=== PATIENT | female | born 1960 | race Caucasian/White ===

== ENCOUNTER 2019-08-11 09:32 | Outpatient (CLI) | payer OTHER, SELFPAY ==
[2019-08-11 09:55] LABS: Basophils Absolute Auto 0.04 K/mm3 (0.00-0.10); Basophils Percent Auto 0.8 % (0.0-1.0); Eosinophils Absolute Auto 0.27 K/mm3 (0.02-0.50); Eosinophils Percent Auto 5.3 % (1.0-6.0); Hematocrit 45.6 % (35.0-49.0); Hemoglobin 15.5 g/dL (12.0-15.0); Immature Granulocyte Absolute 0.01 K/mm3 (0.00-0.00); Immature Granulocyte Percent A 0.2 % (0.0-0.0); Lymphocytes Absolute Auto 1.63 K/mm3 (1.10-4.50); Lymphocytes Percent Auto 31.8 % (18.0-42.0); Mean Corpuscular Volume 94.2 fL (78.0-102.0); Mean Platelet Volume 9.6 fl (9.2-11.8); Monocytes Absolute Auto 0.52 K/mm3 (0.10-0.90); Monocytes Percent Auto 10.2 % (2.0-11.0); Neutrophils Absolute Auto 2.7 K/mm3 (1.7-7.2); Neutrophils Percent Auto 51.7 % (50.0-70.0); Platelet Count Result 176 K/mm3 (150-420); Red Blood Count 4.84 M/mm3 (4.20-5.40); Red Cell Distribution Width 12.8 % (11.6-14.4); White Blood Count 5.1 K/mm3 (4.8-10.8)
[2019-08-11 09:56] LABS: Add Urine Microscopic? NO; Appearance Urine Clear (Clear); Bilirubin Urine Negative (Negative); Blood Urine Negative (Negative); Color Urine Yellow (Yellow); Glucose Urine UA Negative (Negative); Ketones Urine Negative (Negative); Leukocyte Esterase Ur Negative (Negative); Nitrate Urine Negative (Negative); Protein Urine Negative (Negative); Specific Grav Ur 1.025 (1.010-1.020); Urobilinogen Urine 0.2 mg/dL (0.2-1.0); pH Urine 5.5 (5.0-8.0)
[2019-08-11 10:06] LABS: Hemoglobin A1C 5.7 % (<5.7)
[2019-08-11 10:42] LABS: Alanine Aminotransferase 33 U/L (14-59); Alkaline Phosphatase 79 U/L (46-116); Anion Gap 12.4 mmol/L (7-16); Aspartate Amino Transferase 24 U/L (15-37); Bilirubin,Total 1.5 mg/dL (0.00-1.00); Blood Urea Nitrogen 21 mg/dL (7-18); Carbon Dioxide 30 mmol/L (21-32); Chloride 103 mmol/L (98-108); Cholesterol 179 mg/dL (0-200); Creatine Kinase 120 U/L (26-192); Estimated Glomerular Filt Rate > 60; Glucose 98 mg/dL (70-99); HDL Direct 54 mg/dL (40-60); LDL Cholesterol Calculated 87 mg/dL (<130); Osmolality Calculated 295 mOsm/kg (285-295); Potassium 4.4 mmol/L (3.5-5.1); Sodium 141 mmol/L (136-145); Total Protein 7.1 g/dL (6.4-8.2); Triglycerides 190 mg/dL (0-150)
== END 2019-08-11 09:33 | disposition home or self-care (01) ==
LOC: CHSLAB 09:34
PROVIDERS: PCP Internal Medicine; Visit Provider Internal Medicine
DX: Z00.00 Encounter for general adult medical examination without abnormal findings (principal); E78.2 Mixed hyperlipidemia; R73.01 Impaired fasting glucose; I49.3 Ventricular premature depolarization
CPT/HCPCS: 36415; 80053; 80061; 81003; 82550; 83036; 85025

== ENCOUNTER 2019-12-16 13:37 | Outpatient (CLI) | payer OTHER, SELFPAY ==
[2019-12-17 03:00] LABS: SARS-CoV-2 RNA PCR Negative
== END 2019-12-16 13:38 | disposition home or self-care (01) ==
LOC: CHSLAB 13:39
PROVIDERS: PCP Internal Medicine; Visit Provider Internal Medicine
DX: R50.9 Fever, unspecified (principal); Z20.828 Contact with and (suspected) exposure to other viral communicable diseases
CPT/HCPCS: 87635; C9803; U0003

== ENCOUNTER 2020-08-10 09:59 | Outpatient (CLI) | payer OTHER, SELFPAY ==
[2020-08-10 10:14] LABS: Basophils Absolute Auto 0.05 K/mm3 (0.00-0.10); Eosinophils Percent Auto 4.1 % (1.0-6.0); Hematocrit 45.5 % (35.0-49.0); Hemoglobin 15.2 g/dL (12.0-15.0); Immature Granulocyte Absolute 0.02 K/mm3 (0.00-0.00); Immature Granulocyte Percent A 0.4 % (0.0-0.0); Lymphocytes Absolute Auto 1.51 K/mm3 (1.10-4.50); Lymphocytes Percent Auto 31.1 % (18.0-42.0); Mean Corpuscular HGB Conc 33.4 g/dL (32.0-36.0); Mean Corpuscular Volume 92.7 fL (78.0-102.0); Mean Platelet Volume 8.9 fl (9.2-11.8); Monocytes Absolute Auto 0.54 K/mm3 (0.10-0.90); Monocytes Percent Auto 11.1 % (2.0-11.0); Neutrophils Absolute Auto 2.5 K/mm3 (1.7-7.2); Neutrophils Percent Auto 52.3 % (50.0-70.0); Platelet Count Result 196 K/mm3 (150-420); Red Blood Count 4.91 M/mm3 (4.20-5.40); Red Cell Distribution Width 12.9 % (11.6-14.4); White Blood Count 4.9 K/mm3 (4.8-10.8)
[2020-08-10 10:17] LABS: Appearance Urine Clear (Clear); Bilirubin Urine Negative (Negative); Color Urine Yellow (Yellow); Glucose Urine UA Negative (Negative); Ketones Urine Negative (Negative); Leukocyte Esterase Ur Negative LEU/UL (Negative); Nitrate Urine Negative (Negative); Protein Urine Negative (Negative); Specific Grav Ur >= 1.030 (1.010-1.020); Urobilinogen Urine 0.2 mg/dL (0.2-1.0)
[2020-08-10 10:28] LABS: Add Urine Microscopic? YES; Bacteria Urine None seen /hpf; Blood Urine Trace-Intact (Negative); RBC Urine 0-2 /hpf (0-2); Squamous Epithelial Cell Urine Few /hpf (Few); WBC Urine None seen /hpf (0-3)
[2020-08-10 11:05] LABS: Alanine Aminotransferase 35 U/L (14-59); Albumin Level 3.9 g/dL (3.4-5.0); Alkaline Phosphatase 106 U/L (46-116); Anion Gap 10 mmol/L (8-16); Aspartate Amino Transferase 22 U/L (15-37); Bilirubin,Total 1.4 mg/dL (0.00-1.00); Blood Urea Nitrogen 24 mg/dL (7-18); Calcium 9.2 mg/dL (8.5-10.1); Carbon Dioxide 29 mmol/L (21-32); Chloride 104 mmol/L (98-108); Cholesterol 204 mg/dL (0-200); Creatine Kinase 91 U/L (26-192); Estimated Glomerular Filt Rate > 60; Glucose 98 mg/dL (70-99); HDL Direct 56 mg/dL (40-60); LDL Cholesterol Calculated 117 mg/dL (<130); Osmolality Calculated 300 mOsm/kg (285-295); Potassium 4.6 mmol/L (3.5-5.1); Sodium 143 mmol/L (136-145); Thyroid Stimulating Hormone 2.16 uIU/mL (0.36-3.74); Total Protein 7.1 g/dL (6.4-8.2); Triglycerides 155 mg/dL (0-150)
== END 2020-08-10 10:00 | disposition home or self-care (01) ==
LOC: CHSLAB 10:02
PROVIDERS: PCP Internal Medicine; Visit Provider Internal Medicine
DX: Z00.00 Encounter for general adult medical examination without abnormal findings (principal)
CPT/HCPCS: 36415; 80053; 80061; 81001; 82550; 84439; 84443; 85025

== ENCOUNTER 2020-08-25 09:50 | Outpatient (CLI) | payer OTHER, SELFPAY ==
--- NOTE | ~2020-08-25 | CT_ITS ---
EXAMINATION: CT sinus wo con DATE: 08/25/2020 10:12 INDICATION: Chronic pansinusitis TECHNIQUE: Computed tomography (CT) of the paranasal sinuses was performed without contrast. Iterativ e reconstruction technique was employed. Exam dose: 330.84 mGy-cm total exam DLP. COMPARISON: 06/22/2013 CT brain FINDINGS: There is rightward deviation of nasal septum. There is asymmetric soft tissue swelling of left middle and inferior nasal turbinates. The ostiomeatal units are patent bilaterally. There is minimal focal soft tissue thickening in the left frontoethmoid area. There is minimal focal soft tissue thickening along the anterolateral right maxillary sinus. The paranasal sinuses are otherwise normally developed and aerated without mucoperiosteal thickening, mass, opacification or air-fluid level. The mastoid air cells are normally developed and aerated. Middle and inner ear apparatus appear nuvia l. IMPRESSION: Rightward deviation nasal septum Asymmetric soft tissue swelling of left nasal turbinates Minimal focal left frontal ethmoid soft tissue thickening and minimal focal soft tissue thickening of the anterolateral wall of the right maxillary sinus Reviewed, dictated and finalized at [facility]. Reviewed, dictated and finalized at [facility]. IMPRESSION: Rightward deviation nasal septum Asymmetric soft tissue swelling of left nasal turbinates Minimal focal left frontal ethmoid soft tissue thickening and minimal focal sof t tissue thickening of the anterolateral wall of the right maxillary sinus
== END 2020-08-25 09:51 | disposition home or self-care (01) ==
LOC: CHSIMG 09:52
PROVIDERS: PCP Internal Medicine; Visit Provider Internal Medicine
DX: J32.4 Chronic pansinusitis (principal)
CPT/HCPCS: 70486

== ENCOUNTER 2021-07-03 07:56 | Outpatient (RCR) | payer OTHER, SELFPAY ==
--- NOTE | 2021-07-03 08:56 | PTOPEVAL ---
Thank you for referring Jannie Kong to [facility].? The patient is scheduled to be seen for therapy? __2__x/week for 8 visits. Please review, sign, date and return this plan of care ARABELLA. I agree with and certify that the following plan of care is medically necessary. Referring Physician Date Admitting Provider: Attending Provider: Monica Lopez MD Referring Provider: *PT Outpatient Evaluation Start: 07/03/21 08:04 Freq: Status: Active Protocol: Document 07/03/21 08:04 PETER (Rec: 07/03/21 08:31 PETER [email or web address]) Therapy Assessment Status Assessment Status Assessment Status Evaluation Evaluation Information Problem Diagnosis right shoulder pain Onset 02/11/21 Subjective Information Pt. reports that she noticed Query Text:As Reported By Patient/ first episode of right Family shoulder pain in Feb. She reports that she was jerked after her dog ran while on the leash. She reports that pain is on/off but has been worsening. She reports that she was given an dose pack at the doctor which has started to reduce pain over the past couple days. She reports that reaching across her body increases her pain, or doing activities such as washing tables. she reports that her goal for therapy is to reduce her right shoulder pain. Prior Level of Function Activity Level (Last 3 Months) Hand Dominance Right Activity of Daily Living Ability Independent Indoor/Home Mobility Independent Community Mobility Independent Stairs Ability Independent Functional Cognition (Planning, Shopping Independent , Taking Medications) Cooking Yes Cleaning Yes Laundry Yes Shopping Yes Driving Yes Pain Assessment Timing of Pain Assessment Timing of Pain Assessment Pre-Treatment Pain Scale Pain Scale Used Numeric (1 - 10) Self Report Pain Assessment Right Shoulder(s) Reported Pain Level 4 Lowest Pain Intensity 1 Greatest Pain Intensity 5 Pain Aggravating Factors Exercise/Activity,Lifting Pain Score Pain Score 4: Self Report Interventions Used Interventions Used By Clinicians Electrical Stimulation,
--- NOTE | 2021-07-27 15:14 | PTOPEVAL ---
Thank you for referring Jannie Kong to [facility].? The patient is scheduled to be seen for therapy? ____x/week for ___ weeks. Please review, sign, date and return this plan of care ARABELLA. I agree with and certify that the following plan of care is medically necessary. Referring Physician Date Admitting Provider: Attending Provider: Monica Lopez MD Referring Provider: *PT Outpatient Evaluation Start: 07/03/21 08:04 Freq: Status: Active Protocol: Document 07/27/21 08:00 Svetlana (Rec: 07/27/21 09:12 [facility] [email or web address]) Therapy Assessment Status Assessment Status Assessment Status Discharge Evaluation Information Problem Diagnosis right shoulder pain Onset 02/11/21 Additional Evaluation Detail Quick DASH = 6.8% Functionally Impaired Subjective Information Pt reports that her shoulder Query Text:As Reported By Patient/ is doing better. She says that Family she is able to wash her back and reach across her chest farther than she was able to in the past. However, she still has pain and difficulty when sleeping. She states that she is pleased with the progress that she has made over her course of therapy. Pain Assessment Timing of Pain Assessment Timing of Pain Assessment Pre-Treatment Pain Scale Pain Scale Used Numeric (1 - 10) Self Report Pain Assessment Right Shoulder(s) Reported Pain Level 0 Greatest Pain Intensity 4 Pain Score Pain Score 0: Self Report Interventions Used Interventions Used By Clinicians Activity or ADL's,Education, Exercise Upper Extremity Range of Motion Scapular/ Shoulder Range of Motion Right Shoulder Flexion - Active 150 Shoulder Medial Rotation - Active L3 Query Text:Reach Behind the Back Shoulder Lateral Rotation - Active T3 Query Text:Reach Behind the Head Left Shoulder Flexion - Active 165 Shoulder Medial Rotation - Active T12 Query Text:Reach Behind the Back Shoulder Lateral Rotation - Active T4 Query Text:Reach Behind the Head Upper Extremity Muscle Strength Testing Scapular/Shoulder Right Shoulder Elevation - Upper Trapezius 4+ Good + Shoulder Flexion Strength 4+ Good + Shoulder Abduction Strength 4+ Good + Shoulder Medial Rotation Strength 5 Normal Shoulder Lateral Rotation Strength 5 Normal Left Shoulder Elevation - Upper Trapezius 5 Normal Shoulder Flexion Strength 5 Normal Shoulder Abduction Strength 4+ Good + Shoulder Medial Rotation Strength
== END 2021-07-27 17:41 | disposition home or self-care (01) ==
LOC: CHSPT 07:56
PROVIDERS: PCP Internal Medicine; Visit Provider Internal Medicine
DX: M25.511 Pain in right shoulder (principal)
CPT/HCPCS: 97014; 97110; 97140; 97161; 97530; G0283

== ENCOUNTER 2021-08-02 08:32 | Outpatient (CLI) | payer OTHER, SELFPAY ==
[2021-08-02 09:08] LABS: Basophils Absolute Auto 0.04 K/mm3 (0.00-0.10); Basophils Percent Auto 0.8 % (0.0-1.0); Eosinophils Absolute Auto 0.23 K/mm3 (0.02-0.50); Eosinophils Percent Auto 4.5 % (1.0-6.0); Hematocrit 43.9 % (35.0-49.0); Immature Granulocyte Absolute 0.01 K/mm3 (0.00-0.00); Immature Granulocyte Percent A 0.2 % (0.0-0.0); Lymphocytes Absolute Auto 1.69 K/mm3 (1.10-4.50); Lymphocytes Percent Auto 32.9 % (18.0-42.0); Mean Corpuscular HGB Conc 34.2 g/dL (32.0-36.0); Mean Corpuscular Hemoglobin 32.1 pg (27.0-31.0); Mean Corpuscular Volume 93.8 fL (78.0-102.0); Mean Platelet Volume 9.2 fl (9.2-11.8); Monocytes Absolute Auto 0.46 K/mm3 (0.10-0.90); Neutrophils Absolute Auto 2.7 K/mm3 (1.7-7.2); Neutrophils Percent Auto 52.6 % (50.0-70.0); Platelet Count Result 203 K/mm3 (150-420); Red Blood Count 4.68 M/mm3 (4.20-5.40); White Blood Count 5.1 K/mm3 (4.8-10.8)
[2021-08-02 09:11] LABS: Add Urine Microscopic? YES; Appearance Urine Clear (Clear); Bilirubin Urine Negative (Negative); Blood Urine Negative (Negative); Color Urine Light Yellow (Yellow); Glucose Urine UA Negative (Negative); Ketones Urine Negative (Negative); Leukocyte Esterase Ur 1+ (Negative); Nitrate Urine Negative (Negative); Protein Urine Negative (Negative); Specific Grav Ur >= 1.030 (1.010-1.020); Urobilinogen Urine 0.2 mg/dL (0.2-1.0)
[2021-08-02 09:15] LABS: Creatinine Urine 170.17 mg/dL (40-278); MALB Creatinine Ratio 7.6 mg/g (0-30); Microalbumin Urine Random < 13.0 mg/L
[2021-08-02 09:18] LABS: Bacteria Urine Trace /hpf; Mucus Urine Few /lpf; RBC Urine 0-2 /hpf (0-2); Squamous Epithelial Cell Urine Few /hpf (Few)
[2021-08-02 09:19] LABS: Hemoglobin A1C 5.7 % (<5.7)
[2021-08-02 09:51] LABS: Alanine Aminotransferase 34 U/L (14-59); Albumin Level 3.9 g/dL (3.4-5.0); Alkaline Phosphatase 112 U/L (46-116); Anion Gap 7 mmol/L (8-16); Aspartate Amino Transferase 19 U/L (15-37); Bilirubin,Total 1.4 mg/dL (0.00-1.00); Blood Urea Nitrogen 20 mg/dL (7-18); Carbon Dioxide 27 mmol/L (21-32); Chloride 107 mmol/L (98-108); Cholesterol 205 mg/dL (0-200); Creatine Kinase 80 U/L (26-192); Estimated Glomerular Filt Rate > 60; Ferritin 145 ng/mL (8-252); Free T3 3.02 pg/mL (2.18-3.98); Free T4 Free Thyroxine 0.91 ng/dL (0.76-1.46); Glucose 97 mg/dL (70-99); HDL Direct 52 mg/dL (40-60); Iron 126 ug/dL (50-170); LDL Cholesterol Calculated 119 mg/dL (<130); Magnesium 2.2 mg/dL (1.8-2.4); Osmolality Calculated 294 mOsm/kg (285-295); Potassium 4.3 mmol/L (3.5-5.1); Sodium 141 mmol/L (136-145); Thyroid Stimulating Hormone 2.08 uIU/mL (0.36-3.74); Triglycerides 168 mg/dL (0-150)
[2021-08-07 20:56] LABS: Vitamin D 25 Hydroxy 48 ng/mL (30-100)
== END 2021-08-02 08:33 | disposition home or self-care (01) ==
LOC: CHSLAB 08:36
PROVIDERS: PCP Internal Medicine; Visit Provider Internal Medicine
DX: Z00.00 Encounter for general adult medical examination without abnormal findings (principal); E78.2 Mixed hyperlipidemia; R73.01 Impaired fasting glucose; I49.3 Ventricular premature depolarization; J32.4 Chronic pansinusitis
CPT/HCPCS: 36415; 80053; 80061; 81001; 82043; 82306; 82550; 82728; 83036; 83540; 83735; 84439; 84443; 84481; 85025

== ENCOUNTER 2021-08-22 11:14 | Outpatient (CLI) | payer OTHER, SELFPAY ==
--- NOTE | ~2021-08-22 | XR_ITS ---
XR shoulder RT min 2V DATE: 08/22/2021 11:29 INDICATION: Right shoulder pain TECHNIQUE: 4 views COMPARISON: None FINDINGS: No fracture or dislocation, periosteal reaction or bone destruction or abnormal soft tissue calcification of the right shoulder. IMPRESSION: Negative Reviewed, dictated and finalized at [facility]. IMPRESSION: Negative
== END 2021-08-22 11:15 | disposition home or self-care (01) ==
LOC: CHSLAB 11:16
PROVIDERS: PCP Internal Medicine; Visit Provider Internal Medicine
DX: M25.511 Pain in right shoulder (principal)
CPT/HCPCS: 73030

== ENCOUNTER → 2021-09-06 15:22 | Outpatient (CLI) | payer OTHER, SELFPAY ==
--- NOTE | ~2021-09-06 | MR_ITS ---
EXAMINATION: MR shoulder RT wo con DATE: 09/06/2021 16:08 INDICATION: Lateral right shoulder pain, difficulty reaching across the chest x4 months. Right arm je rked backwards 6 months ago. TECHNIQUE: Magnetic resonance imaging (MRI) of the right shoulder was performed without intravenous c ontrast. Sequences included axial PD-weighted FS FSE, coronal oblique PD-weighted FS FSE and T2-weigh jose g FS FSE, and sagittal oblique T2-weighted FS FSE and T1-weighted FSE. COMPARISON: X-ray right shoulder 08/22/2021 FINDINGS: Coracoacromial arch: Mild anterolateral downsloping of the type I acromion. Moderate AC joint hypertrophy with minimal inf erior osteophytosis. Moderate acromial tip enthesophyte. No subcoracoid narrowing. Rotator cuff: Supraspinatus, infraspinatus, and teres minor are intact. Thickening and abnormal signal within the d istal/superior fibers of the subscapularis. Biceps tendon and glenoid labrum: Minimal subluxation with abnormal signal and thickening of the long head of biceps tendon. Short head of biceps tendon intact. Degenerative changes in the glenoid labrum without focal tear. Fluid: Mild subacromial subdeltoid fluid and inflammation. Bones/cartilage: No suspicious focal or diffuse marrow signal. IMPRESSION: 1. Partial subluxation and moderate tendinopathy of the long head of biceps tendon, with correspondin g partial subscapularis tear. 2. Mild osseous outlet compromise with subacromial subdeltoid bursitis. Reviewed, dictated and finalized at [facility]. IMPRESSION: 1. Partial subluxation and moderate tendinopathy of the long head of biceps ten don, with corresponding partial subscapularis tear. 2. Mild osseous outlet compromise with subacromial subdeltoid bursitis.
== END ==
PROVIDERS: PCP Internal Medicine; Visit Provider Internal Medicine
DX: M25.511 Pain in right shoulder (principal)
CPT/HCPCS: 73221

== ENCOUNTER → 2022-05-03 10:46 | Outpatient (CLI) | payer OTHER, SELFPAY | PROVIDERS: PCP Internal Medicine; Visit Provider Nurse Practitioner Family | DX: M25.561 Pain in right knee (principal) | CPT/HCPCS: 73564 ==

== ENCOUNTER → 2022-05-07 09:18 | Outpatient (CLI) | payer OTHER, SELFPAY ==
--- NOTE | ~2022-05-07 | MR_ITS ---
MRI of the right knee Clinical history: Pain Technique: Coronal proton density and proton density-weighted images, sagittal proton-density and T2 fat-sat images, and axial proton-density fat-saturated images were acquired. Findings: Anterior and posterior cruciate ligaments are intact. Medial collateral ligament and the la teral collateral ligament complex are intact. Popliteus tendon is intact. There is complex tearing of the posterior horn and body of medial meniscus, with horizontal and verti kaila tear components. No lateral meniscal tear identified. There is mild chondromalacia patella. Remaining articular cartilage is well preserved. Bone marrow si gnals are unremarkable. Extensor mechanism is intact. Small joint effusion present. No Reilly's cyst. Impression: Complex tearing of the posterior horn and body of the medial meniscus, with both horizontal and verti kaila tear components. Mild chondromalacia patella. Reviewed, dictated and finalized at [facility]. Impression: Complex tearing of the posterior horn and body of the medial meniscus, with bot h horizontal and vertical tear components. Mild chondromalacia patella.
== END ==
PROVIDERS: PCP Internal Medicine; Visit Provider Internal Medicine
DX: S83.231A Complex tear of medial meniscus, current injury, right knee, initial encounter (principal); X58.XXXA Exposure to other specified factors, initial encounter
CPT/HCPCS: 73721

== ENCOUNTER 2022-08-03 08:49 | Outpatient (CLI) | payer OTHER, SELFPAY ==
[2022-08-03 09:10] LABS: Basophils Absolute Auto 0.05 K/mm3 (0.00-0.10); Basophils Percent Auto 0.8 % (0.0-1.0); Eosinophils Absolute Auto 0.26 K/mm3 (0.02-0.50); Hematocrit 49.2 % (35.0-49.0); Hemoglobin 16.3 g/dL (12.0-15.0); Immature Granulocyte Absolute 0.01 K/mm3 (0.00-0.00); Immature Granulocyte Percent A 0.2 % (0.0-0.0); Lymphocytes Percent Auto 30.8 % (18.0-42.0); Mean Corpuscular HGB Conc 33.1 g/dL (32.0-36.0); Mean Corpuscular Hemoglobin 31.5 pg (27.0-31.0); Mean Corpuscular Volume 95.2 fL (78.0-102.0); Monocytes Absolute Auto 0.61 K/mm3 (0.10-0.90); Monocytes Percent Auto 9.4 % (2.0-11.0); Neutrophils Absolute Auto 3.6 K/mm3 (1.7-7.2); Neutrophils Percent Auto 54.8 % (50.0-70.0); Platelet Count Result 213 K/mm3 (150-420); Red Blood Count 5.17 M/mm3 (4.20-5.40); White Blood Count 6.5 K/mm3 (4.8-10.8)
[2022-08-03 09:11] LABS: Appearance Urine Clear (Clear); Bilirubin Urine 1+ (Negative); Blood Urine Negative (Negative); Glucose Urine UA Negative (Negative); Ketones Urine Trace (Negative); Leukocyte Esterase Ur Negative LEU/UL (Negative); Nitrate Urine Negative (Negative); Protein Urine Trace (Negative); Specific Grav Ur >= 1.030 (1.010-1.020); Urobilinogen Urine 0.2 mg/dL (0.2-1.0); pH Urine 5.5 (5.0-8.0)
[2022-08-03 09:17] LABS: Add Urine Microscopic? YES; Bacteria Urine Trace /hpf; Color Urine Dark Yellow (Yellow); Mucus Urine Few /lpf; RBC Urine None seen /hpf (0-2); Squamous Epithelial Cell Urine Few /hpf (Few); WBC Urine None seen /hpf (0-3)
[2022-08-03 09:52] LABS: Alanine Aminotransferase 47 U/L (14-59); Albumin Level 3.9 g/dL (3.4-5.0); Alkaline Phosphatase 122 U/L (46-116); Anion Gap 7 mmol/L (8-16); Aspartate Amino Transferase 25 U/L (15-37); Bilirubin,Total 1.6 mg/dL (0.00-1.00); Blood Urea Nitrogen 22 mg/dL (7-18); Calcium 9.3 mg/dL (8.5-10.1); Carbon Dioxide 30 mmol/L (21-32); Chloride 105 mmol/L (98-108); Cholesterol 204 mg/dL (0-200); Creatine Kinase 76 U/L (26-192); Estimated Glomerular Filt Rate > 60; Ferritin 219 ng/mL (8-252); Free T3 3.42 pg/mL (2.18-3.98); Glucose 111 mg/dL (70-99); HDL Direct 51 mg/dL (40-60); Iron 111 ug/dL (50-170); LDL Cholesterol Calculated 106 mg/dL (<130); Magnesium 2.1 mg/dL (1.8-2.4); Osmolality Calculated 298 mOsm/kg (285-295); Potassium 4.3 mmol/L (3.5-5.1); Sodium 142 mmol/L (136-145); Total Protein 7.3 g/dL (6.4-8.2); Triglycerides 236 mg/dL (0-150)
[2022-08-06 11:31] LABS: Free T4 Free Thyroxine 1.22 ng/dL (0.76-1.46)
== END 2022-08-03 08:50 | disposition home or self-care (01) ==
LOC: CHSLAB 08:55
PROVIDERS: PCP Internal Medicine; Visit Provider Internal Medicine
DX: N39.0 Urinary tract infection, site not specified (principal); E78.5 Hyperlipidemia, unspecified; D50.9 Iron deficiency anemia, unspecified; R53.83 Other fatigue
CPT/HCPCS: 36415; 80053; 80061; 81001; 82550; 82728; 83540; 83735; 84439; 84443; 84481; 85025

== ENCOUNTER 2022-12-26 01:38 | Day surgery (SDC) | payer OTHER, SELFPAY ==
[2022-12-12 13:03] VITALS: BMI 31.9
--- NOTE | 2022-12-24 09:20 | SUR.PREOP ---
Patient called regarding upcoming procedure. Reviewed preop instructions, appointment times, and procedure prep.
--- NOTE | 2022-12-25 14:13 | PM.HPGS ---
History of Present Illness History of Present Illness Consent: Risks, benefits, and alternatives have been discussed and questions answered. Patient agrees to proceed with procedure. Chief complaint: hx colon polyps Narrative: Jannie Kong is a 62 year old female Referred for colon cancer screening. She has a history of polyps. She had 3 polyps removed 5 years ago, 1 of which was a tubular adenoma. Review of Systems Review of Systems: All systems reviewed & are unremarkable except as noted in HPI and below PMFSH Family History Family History Mother Family history of elevated blood lipids Family history of coronary artery disease Grandparent Cerebrovascular accident Social History Social History Smoking status: Never smoker Alcohol intake: current Alcohol use details: seldom Substance use: never Substance use type: does not use Living arrangements: with family Spiritual care concerns: No Meds Home Medications and Allergies Home Medications Medication Instructions Recorded Confirmed Type meloxicam 15 mg tablet 15 mg PO DAILY 12/12/22 12/26/22 History metoprolol succinate 25 mg 25 mg PO DAILY 12/12/22 12/26/22 History tablet,extended release 24 hr rosuvastatin 10 mg tablet 10 mg PO DAILY 12/12/22 12/26/22 History Allergies Allergy/AdvReac Type Severity Reaction Status Date / Time Penicillins Allergy Unknown rash Verified 12/26/22 08:57 Exam Const: General: alert Orientation/consciousness: patient oriented x3 Resp: Auscultation: clear to auscultation bilaterally Cardio: Rhythm: regular rhythm GI: GI Palp: Yes Soft to palpation and No Tenderness to palpation present (GI) Neuro: General: patient oriented x3 Assessment and Plan Assessment and plan (1) Colon cancer screening: Code(s): Z12.11 - Encounter for screening for malignant neoplasm of colon Status: Acute Assessment and Plan: Colonoscopy with possible biopsy or polypectomy or cautery or injection of substances.
[2022-12-26 08:59] VITALS: BP 151/102; PULSE 102; RESP 18; TEMP 36.4; O2SAT 98; BMI 32.0
[2022-12-26] MEDS: LACTATED RINGERS 1,000 ML 150 ML IV CONT (09:01)
--- NOTE | 2022-12-26 09:33 | WPDANESEPPF ---
Anes - Initial Pre Proc Eval Procedure: Operation Date: 12/26/22 10:00 Proposed Procedures p Colonoscopy - Coleman Martell MD Date/Time: 12/26/22 09:33 Surgeon: Coleman Martell MD Pre Op Diagnosis: hx colon polyps Patient Data Age: 62 Gender: F Height: 1.7 m Weight: 92.8 kg Last Vital Signs Temp 97.5 F L 12/26/22 08:59 Pulse 102 H 12/26/22 08:59 Resp 18 12/26/22 08:59 BP 151/102 H 12/26/22 08:59 Pulse Ox 98 12/26/22 08:59 O2 Del Method Room Air 12/26/22 08:59 Allergies Allergy/AdvReac Type Severity Reaction Status Date / Time Penicillins Allergy Unknown rash Verified 12/26/22 08:57 Home Medications Medication Instructions Recorded Confirmed Type meloxicam 15 mg tablet 15 mg PO DAILY 12/12/22 12/26/22 History metoprolol succinate 25 mg 25 mg PO DAILY 12/12/22 12/26/22 History tablet,extended release 24 hr rosuvastatin 10 mg tablet 10 mg PO DAILY 12/12/22 12/26/22 History Patient hx anesthesia problems: none Family hx anesthesia problems: none Results Review: All pre-operative results and documents have been reviewed as part of the pre-operative evaluation. [facility] Family History Family History Mother Family history of elevated blood lipids Family history of coronary artery disease Grandparent Cerebrovascular accident Social History Social History Smoking status: Never smoker Alcohol intake: current Alcohol use details: seldom Substance use: never Substance use type: does not use Living arrangements: with family Spiritual care concerns: No Anes - Eval Final PreProcedure Day of Procedure 12/26/22 09:33 Patient weight: obese Heart: regular rate and rhythm Lungs: clear to auscultation Airway: Mallampati scale class II Neurological: alert and oriented Last oral intake: >/= 8 hours ASA classification: III Emergent: no Anesthetic plan: proceed Anesthesia type and monitoring: general GIVS and standard monitoring Results Review: All pre-operative results and documents have been reviewed as part of the pre-operative evaluation. Informed Consent: The patient's anesthetic plan and its attendant risks and benefits were discussed with the patient/family/POA. Questions were solicited and answers provided to the satisfaction of the patient/family/POA.
[2022-12-26 10:12] VITALS: BP 133/83; PULSE 93; RESP 20; O2SAT 98
[2022-12-26 10:22] VITALS: BP 141/98; PULSE 79; RESP 19; O2SAT 98
[2022-12-26 10:32] VITALS: BP 142/92; PULSE 74; RESP 16; O2SAT 100
== END 2022-12-26 10:40 | disposition home or self-care (01) ==
PROVIDERS: PCP Internal Medicine; Visit Provider Internal Medicine Gastroenterology
PROC: 0DJD8ZZ Inspection of Lower Intestinal Tract, Via Natural or Artificial Opening Endoscopic (ICD-10-PCS; CPT 45378; principal; 2022-12-26 10:00)
DX: Z12.11 Encounter for screening for malignant neoplasm of colon (principal); K57.30 Diverticulosis of large intestine without perforation or abscess without bleeding; E66.9 Obesity, unspecified; Z68.32 Body mass index [BMI] 32.0-32.9, adult; Z86.010 Personal history of colon polyps; Z82.49 Family history of ischemic heart disease and other diseases of the circulatory system
CPT/HCPCS: 45378; J2704; J7120

== ENCOUNTER 2023-01-25 09:14 | Outpatient (CLI) | payer OTHER, SELFPAY ==
[2023-01-25 09:43] LABS: Basophils Absolute Auto 0.04 K/mm3 (0.00-0.10); Basophils Percent Auto 0.8 % (0.0-1.0); Eosinophils Absolute Auto 0.32 K/mm3 (0.02-0.50); Eosinophils Percent Auto 6.7 % (1.0-6.0); Hematocrit 47.5 % (35.0-49.0); Hemoglobin 15.7 g/dL (12.0-15.0); Immature Granulocyte Absolute 0.01 K/mm3 (0.00-0.00); Immature Granulocyte Percent A 0.2 % (0.0-0.0); Lymphocytes Absolute Auto 1.19 K/mm3 (1.10-4.50); Lymphocytes Percent Auto 25.1 % (18.0-42.0); Mean Corpuscular HGB Conc 33.1 g/dL (32.0-36.0); Mean Corpuscular Hemoglobin 31.3 pg (27.0-31.0); Mean Corpuscular Volume 94.8 fL (78.0-102.0); Monocytes Absolute Auto 0.56 K/mm3 (0.10-0.90); Monocytes Percent Auto 11.8 % (2.0-11.0); Neutrophils Absolute Auto 2.6 K/mm3 (1.7-7.2); Neutrophils Percent Auto 55.4 % (50.0-70.0); Platelet Count Result 210 K/mm3 (150-420); Red Blood Count 5.01 M/mm3 (4.20-5.40); Red Cell Distribution Width 12.9 % (11.6-14.4); White Blood Count 4.8 K/mm3 (4.8-10.8)
[2023-01-25 09:48] LABS: Appearance Urine Clear (Clear); Bilirubin Urine Negative (Negative); Blood Urine Negative (Negative); Color Urine Yellow (Yellow); Glucose Urine UA Negative (Negative); Ketones Urine Negative (Negative); Leukocyte Esterase Ur Trace (Negative); Nitrate Urine Negative (Negative); Protein Urine Negative (Negative); Specific Grav Ur 1.025 (1.010-1.020); Urobilinogen Urine 0.2 mg/dL (0.2-1.0)
[2023-01-25 09:58] LABS: Hemoglobin A1C 5.6 % (<5.7)
[2023-01-25 10:07] LABS: Add Urine Microscopic? YES; Bacteria Urine Trace /hpf; Mucus Urine Moderate /lpf; RBC Urine None seen /hpf (0-2); Squamous Epithelial Cell Urine Few /hpf (Few); WBC Urine None seen /hpf (0-3)
[2023-01-25 10:16] LABS: Alanine Aminotransferase 74 U/L (14-59); Alkaline Phosphatase 104 U/L (46-116); Anion Gap 7 mmol/L (8-16); Aspartate Amino Transferase 45 U/L (15-37); Bilirubin,Total 1.9 mg/dL (0.00-1.00); Blood Urea Nitrogen 20 mg/dL (7-18); Calcium 9.2 mg/dL (8.5-10.1); Carbon Dioxide 29 mmol/L (21-32); Chloride 103 mmol/L (98-108); Cholesterol 212 mg/dL (0-200); Creatine Kinase 94 U/L (26-192); Estimated Glomerular Filt Rate > 60; Ferritin 244 ng/mL (8-252); Free T3 3.06 pg/mL (2.18-3.98); Free T4 Free Thyroxine 0.95 ng/dL (0.76-1.46); Glucose 109 mg/dL (70-99); HDL Direct 56 mg/dL (40-60); Iron 166 ug/dL (50-170); LDL Cholesterol Calculated 114 mg/dL (<130); Osmolality Calculated 291 mOsm/kg (285-295); Potassium 4.2 mmol/L (3.5-5.1); Sodium 139 mmol/L (136-145); Thyroid Stimulating Hormone 2.27 uIU/mL (0.36-3.74); Total Protein 7.1 g/dL (6.4-8.2); Triglycerides 208 mg/dL (0-150)
== END 2023-01-25 09:15 | disposition home or self-care (01) ==
LOC: CHSLAB 09:17
PROVIDERS: PCP Internal Medicine; Visit Provider Internal Medicine
DX: I10 Essential (primary) hypertension (principal); E78.2 Mixed hyperlipidemia; R73.01 Impaired fasting glucose; D75.1 Secondary polycythemia; J32.4 Chronic pansinusitis
CPT/HCPCS: 36415; 80053; 80061; 81001; 82550; 82728; 83036; 83540; 84439; 84443; 84481; 85025

== ENCOUNTER 2023-06-26 08:46 | Outpatient (CLI) | payer OTHER, SELFPAY ==
[2023-06-26 09:02] LABS: Basophils Absolute Auto 0.03 K/mm3 (0.00-0.10); Basophils Percent Auto 0.6 % (0.0-1.0); Eosinophils Absolute Auto 0.33 K/mm3 (0.02-0.50); Eosinophils Percent Auto 6.9 % (1.0-6.0); Hematocrit 45.2 % (35.0-49.0); Hemoglobin 15.1 g/dL (12.0-15.0); Immature Granulocyte Absolute 0.01 K/mm3 (0.00-0.00); Immature Granulocyte Percent A 0.2 % (0.0-0.0); Lymphocytes Absolute Auto 1.33 K/mm3 (1.10-4.50); Mean Corpuscular HGB Conc 33.4 g/dL (32-36); Mean Corpuscular Hemoglobin 31.2 pg (27.0-31.0); Mean Corpuscular Volume 93.4 fL (78.0-102.0); Mean Platelet Volume 9.3 fl (9.2-11.8); Monocytes Absolute Auto 0.45 K/mm3 (0.10-0.90); Monocytes Percent Auto 9.5 % (2.0-11.0); Neutrophils Percent Auto 54.8 % (50.0-70.0); Platelet Count Result 187 K/mm3 (150-420); Red Blood Count 4.84 M/mm3 (4.20-5.40); Red Cell Distribution Width 13.2 % (11.6-14.4); White Blood Count 4.8 K/mm3 (4.8-10.8)
[2023-06-26 09:19] LABS: Hemoglobin A1C 5.2 % (<5.7)
[2023-06-26 10:01] LABS: Alanine Aminotransferase 64 U/L (14-59); Albumin Level 3.8 g/dL (3.4-5.0); Alkaline Phosphatase 102 U/L (46-116); Anion Gap 8 mmol/L (4-12); Aspartate Amino Transferase 37 U/L (15-37); Bilirubin,Total 1.3 mg/dL (0.00-1.00); Blood Urea Nitrogen 20 mg/dL (7-18); Calcium 9.1 mg/dL (8.5-10.1); Carbon Dioxide 31 mmol/L (21-32); Chloride 104 mmol/L (98-108); Cholesterol 187 mg/dL (0-200); Creatine Kinase 107 U/L (26-192); Estimated Glomerular Filt Rate > 60; Ferritin 263 ng/mL (8-252); Glucose 101 mg/dL (70-99); HDL Direct 50 mg/dL (40-60); Iron 118 ug/dL (50-170); LDL Cholesterol Calculated 97 mg/dL (<130); Osmolality Calculated 298 mOsm/kg (285-295); Potassium 4.4 mmol/L (3.5-5.1); Sodium 143 mmol/L (136-145); Total Protein 7.1 g/dL (6.4-8.2); Triglycerides 200 mg/dL (0-150)
== END 2023-06-26 08:47 | disposition home or self-care (01) ==
LOC: CHSLAB 08:48
PROVIDERS: PCP Internal Medicine; Visit Provider Internal Medicine
DX: E78.2 Mixed hyperlipidemia (principal); D75.1 Secondary polycythemia; R73.01 Impaired fasting glucose
CPT/HCPCS: 36415; 80053; 80061; 82550; 82728; 83036; 83540; 85025

== ENCOUNTER 2023-10-18 09:29 | Outpatient (CLI) | payer OTHER, SELFPAY ==
[2023-10-18 15:00] LABS: Alanine Aminotransferase 75 U/L (6-35); Albumin Level 4.5 g/dL (3.5-5.1); Alkaline Phosphatase 96 U/L (38-126); Anion Gap 11 mmol/L (4-12); Aspartate Amino Transferase 60 U/L (14-36); Bilirubin,Total 1.6 mg/dL (0.2-1.3); Blood Urea Nitrogen 23 mg/dL (7-17); Calcium 9.4 mg/dL (8.4-10.2); Carbon Dioxide 26 mmol/L (22-30); Chloride 102 mmol/L (98-107); Estimated Glomerular Filt Rate > 60; Glucose 101 mg/dL (65-110); Osmolality Calculated 291 mOsm/kg (285-295); Potassium 4.4 mmol/L (3.4-5.0); Sodium 139 mmol/L (137-145)
[2023-10-18 15:14] LABS: Hemoglobin A1C 5.7 % (<5.7)
== END 2023-10-18 09:30 | disposition home or self-care (01) ==
LOC: CHSLAB 09:32
PROVIDERS: PCP Internal Medicine; Visit Provider Internal Medicine
DX: R74.8 Abnormal levels of other serum enzymes (principal); R73.01 Impaired fasting glucose
CPT/HCPCS: 36415; 80053; 83036

== ENCOUNTER 2023-10-24 09:57 | Outpatient (CLI) | payer OTHER, SELFPAY ==
[2023-10-25 13:17] LABS: Hepatitis B Surface Antibody REACTIVE (NON-REACTIVE)
[2023-10-26 07:58] LABS: Hepatitis C Virus Antibody NON-REACTIVE (NON-REACTIVE)
[2023-10-30 05:48] LABS: Actin Antibody (IgG) <20 U (<20)
[2023-10-31 01:18] LABS: Mitochondrial (M2) Ab (IgG) <20.0 U
== END 2023-10-24 09:58 | disposition home or self-care (01) ==
LOC: CHSLAB 09:59
PROVIDERS: PCP Internal Medicine; Visit Provider Internal Medicine
DX: R74.8 Abnormal levels of other serum enzymes (principal)
CPT/HCPCS: 36415; 83516; 83520; 86706; 86803

== ENCOUNTER 2023-11-15 08:42 | Outpatient (CLI) | payer OTHER, SELFPAY ==
--- NOTE | ~2023-11-15 | US_ITS ---
Limited Abdominal Sonogram: Real-time sonographic imaging of the right upper quadrant was performed. Clinical History: Abnormal liver enzymes Findings: The liver appears echogenic, with no evidence of mass lesion or bile duct dilatation. Main portal vein demonstrates normal direction of flow. The gallbladder is well distended, and appears no rmal with no evidence of gallstone or wall thickening. The common bile duct measures 6 mm. The visua lized pancreas, aorta, and IVC are unremarkable. Impression: Diffuse fatty infiltration of liver. Reviewed, dictated and finalized at [facility]. Impression: Diffuse fatty infiltration of liver.
== END 2023-11-15 08:43 | disposition home or self-care (01) ==
LOC: GOSHIMG 08:42
PROVIDERS: PCP Internal Medicine; Visit Provider Internal Medicine
DX: R74.8 Abnormal levels of other serum enzymes (principal); K76.0 Fatty (change of) liver, not elsewhere classified
CPT/HCPCS: 76705

== ENCOUNTER 2024-02-26 11:05 | Outpatient (CLI) | payer OTHER, SELFPAY | END 2024-02-26 11:06 | disposition home or self-care (01) | PROVIDERS: PCP Internal Medicine | DX: R74.8 Abnormal levels of other serum enzymes (principal) | CPT/HCPCS: 36415; 81256 ==

== ENCOUNTER 2024-03-16 10:09 | Outpatient (CLI) | payer OTHER, SELFPAY ==
--- NOTE | ~2024-03-16 | XR_ITS ---
EXAMINATION: XR chest 2V DATE: 03/16/2024 11:48 INDICATION: Upper respiratory tract infection TECHNIQUE: PA and lateral views of the chest were obtained. COMPARISON: Chest radiograph dated 12/04/2011 FINDINGS: The lungs remain clear with no focal airspace opacities, pulmonary edema, pleural effusion or pneumot horax. The cardiomediastinal silhouette is normal. Mild thoracic dextrocurvature with mild spondylosi s. IMPRESSION: 1. No acute cardiopulmonary disease. Reviewed, dictated and finalized at location B. [facility]
[2024-03-16 10:27] LABS: Hematocrit 46.2 % (35.0-49.0); Hemoglobin 16.1 g/dL (12.0-15.0); Mean Corpuscular HGB Conc 34.8 g/dL (32-36); Mean Corpuscular Hemoglobin 31.4 pg (27.0-31.0); Mean Corpuscular Volume 90.1 fL (78.0-102.0); Mean Platelet Volume 9.1 fl (9.2-11.8); Platelet Count Result 155 K/mm3 (150-420); Red Blood Count 5.13 M/mm3 (4.20-5.40); Red Cell Distribution Width 12.6 % (11.6-14.4); White Blood Count 3.6 K/mm3 (4.8-10.8)
[2024-03-16 10:50] LABS: Alanine Aminotransferase 36 U/L (14-59); Alkaline Phosphatase 79 U/L (46-116); Amylase 38 U/L (25-115); Anion Gap 15 mmol/L (4-12); Aspartate Amino Transferase 36 U/L (15-37); Bilirubin,Total 1.2 mg/dL (0.00-1.00); Blood Urea Nitrogen 17 mg/dL (7-18); Calcium 9.4 mg/dL (8.5-10.1); Carbon Dioxide 23 mmol/L (21-32); Chloride 97 mmol/L (98-108); Estimated Glomerular Filt Rate > 60; Glucose 119 mg/dL (70-99); Lipase 40 U/L (16-77); Osmolality Calculated 282 mOsm/kg (285-295); Potassium 3.5 mmol/L (3.5-5.1); Sodium 135 mmol/L (136-145); Total Protein 7.7 g/dL (6.4-8.2)
[2024-03-16 10:53] LABS: Lactic Acid Reflex 1.8 mmol/L (0.4-2.0)
[2024-03-16 10:57] LABS: Strep Group A RT-PCR NOT DETECTED (Negative)
--- OUTSIDE RECORDS SUMMARY | 2024-03-16 11:04 | XMS_ITS ---
Author Organization [facility] [address] [place] [address] Care Team Providers Care Neon Sign Installer Name Role Phone Monica Lopez MD Primary Care Provider [phone] Betsy Truong MD Unavailable Suyapa Diaz PhD Unavailable [phone] Huan Nelson MD Unavailable [phone] Heavenly Holm LINE CLEANER Unavailable Meir Marin MD Unavailable [phone] Active Problems Patient Care Coordination No te Formatting of this note migh t be different from the original. This is a 62-year-old female presenting to us at the request of Heavenly Griffin nurse practitioner for an evaluation of a pulmonary nodule. She is a medical history significant for basal cell carcinoma, allergic rhinitis, DAVE and hyperlipidemia. She is a never smoker. 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 She had adjuvant radiation therapy followed by tamoxifen. She underwent a surveillance breast MRI that showed an indeterminate 4 mm right middle lobe pulmonary nodule. She would this further evaluated with a chest CT that was performed on 10/12/2022. Thyroid gland is unremarkable. No suspicious supraclavicular, axillary, mediastinal hilar lymphadenopathy. Normal three- vessel aortic arch with scattered atherosclerotic vascular calcifications in the aortic arch. Stable heart size without pericardial effusion. Unremarkable esophagus. Stable 4 mm right middle lobe pulmonary nodule. No new pulmonary nodules. No focal pneumonic consolidation, pneumothorax or pleural effusion. Central airways are patent bilaterally. Mild diffuse hepatic steatosis in the visualized liver. Otherwise unremarkable visualized upper abdominal solid viscera. No suspicious osseous lesions. She is here for further surgical evaluation and discussion. Problem Noted Date Diagnosed Date Elevated liver enzymes 02/20/2024 Assessment & Plan (02/20/2024 12:05 PM INSIDE SALES ACCOUNT MANAGER): Patient with elevated liver tests including elevated liver enzymes (ALT 75, AST 60) and bilirubin (1.6). Her labs were normal back in March 2022. Imaging showed hepatic steatosis. She also has HLD. I suspect liver tests are elevated due to MASH vs MASLD. I will obtain complete serology workup to rule out all causes of chronic liver disease. Patient's brother has Gilbert's and hemochromatosis. I will check for both. I will also include A1C and lipid profile and TSH. Patient to undergo FibroScan to calculate degree of steatosis and if any fibrosis is present. I explained to patient that she might need additional imaging like an MRI or even a liver biopsy. We discussed the importance of weight loss. Her insurance will not approve GLP-1 unless she has diabetes. If fibrosis is present, will look into vitamin E supplementation vs Rezdiffra. She is to go back on Weight Watchers/ work on eating healthier and increasing physical activity. We discussed the cause of increased hepatic fat, i.e., inadequate metabolism of fat delivered to the liver. When associated with elevated transaminases, this is metabolic dysfunction-associated steatohepatitis (MASH). This inflammation can lead to scar tissue or cirrhosis of the liver in approximately 30% of cases. Patients with cirrhosis are at risk for developing complications of portal hypertension, liver failure, , liver cancer, and/or the need for a liver transplant. Fat in the absence of elevated transaminases is non-alcoholic fatty liver disease. Routinely, this is not associated with inflammation or progressive hepatic fibrosis. The most effective treatment of fatty liver is weight loss, ideally achieved through a combination of caloric restriction and exercise. Aerobic exercise for 4 hours a week can accelerate fat metabolism and lead to improvement of liver tests. Weight loss of 5-10% of the current body weight usually leads to improvement in liver tests, liver inflammation, and a decrease in hepatic fibrosis. She will return to clinic in 1 year. Class 1 obesity with body ma ss index (BMI) of 31.0 to 31.9 in adult 02/20/2024 Assessment & Plan (02/20/2024 12:07 PM INSIDE SALES ACCOUNT MANAGER): We discussed the importance of weight loss. She will work on eating healthier and increasing exercise. She should avoid alcohol use. Unable to get GLP1 as she is not diabetic. Will check A1C to see if this has changed. 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 Past Plans No past plan information found. Radiation Treatments * Plan Last Treated On Elapsed Days Fractions Treated Prescribed Fraction Dose Prescribed Total Dose VR LUOQ BRST 07/01/2017 6 10 385 cGy 3,850 cGy Reference Point Last Treated On Elapsed Days Session Dose Total Dose PTV 3850 07/01/2017 6 385 cGy 3,850 cGy Lifetime Dose Tracking * Chemical Lifetime Dose Automatic Entry Manual Entr y Fluoro Time 0.217 minutes 0.217 minutes 0 minutes Air kerma at the reference point (Ka,r) 1.128 mGy 1 .128 mGy 0 mGy DLP 1,160 mGycm 1,160 mGycm 0 mGycm
--- OUTSIDE RECORDS SUMMARY | 2024-03-16 11:04 | XMS_ITS | Clinical Summary ---
Author Organization [facility] [address] [facility] [place] [address] Care Team Providers Care Solidworks Drafter Name Role Phone Monica Lopez MD Primary Care Provider [phone] Betsy Truong MD Unavailable Suyapa Diaz PhD Unavailable [phone] Huan Nelson MD Unavailable [phone] Heavenly Holm JUNIOR LEGAL SECRETARY Unavailable [phone] Meir Marin MD Unavailable [phone] Allergies Active Allergy Reactions Criticality Noted Date Comments Grass Pollen Rhinitis Low 04/03/2016 Penicillins Rash Medium 03/29/2011 High school; penicillin at time of having [place] Ragweed Rhinitis,Sneezing Low 04/03/2016 Tree And Shrub Pollen Rhinitis,Sneezing Low 017 Venom-Honey Bee Hives,Itching Medium 10/20/2022 Medications cetirizine (ZyrTEC) 10 mg tabletIndicatio ns:Allergic Conjunctivitis, Allergic Rhinitis Take 1 tablet (10 mg total) by mouth every morning Active rosuvastatin (CRESTOR) 10 mg tabletIndicatio ns:hyperlipidem ia Take 1 tablet (10 mg total) by mouth nightly 8 Active Toprol XL 25 mg extended release tabletIndicatio ns:PVC's Take 1 tablet (25 mg total) by mouth every morning 8 Active meloxicam (MOBIC) 15 mg tabletIndicatio ns:Osteoarthrit is Take 1 tablet (15 mg total) by mouth every morning Active magnesium oxide (MAG-OX) 400 mg (241.3 mg elemental magnesium) tabletIndicatio ns:hypomagnesem ia Take 1 tablet (400 mg total) by mouth 2 (two) times a day Active cholecalciferol (VITAMIN D-3) 25 mcg (1,000 unit) tabletIndicatio ns:Vitamin D Deficiency Take 1 tablet (1,000 Units total) by mouth 4 (four) times a week Active calcium phosphate trib/vit D3 (CITRACAL + D3, CALCIUM PHOS, ORAL)Indication s:supplement Take 1 tablet by mouth every morning Active fluticasone propionate (FLONASE) 50 mcg/actuation nasal sprayIndication s:Allergic Rhinitis Administer 1 spray into each nostril every morning Active sodium chloride (OCEAN) 0.65 % nasal sprayIndication s:Nasal Congestion Administer 1 spray into each nostril as needed for congestion Active EPINEPHrine 0.3 mg/0.3 mL auto-injection syringe 3 Active calcium carbonate-vitam in D3 1,250 mg (500 mg elemental)-400 unit tablet 1 tablet(s), Oral, daily with breakfast, 30 tablet(s), Tablet(s), 0 4 Active losartan (COZAAR) 25 mg tablet Active Active Problems Patient Care Coordination No te [...] 02/20/2024 Assessment & Plan (02/20/2024 12:05 PM MERCHANDISE STOCKER): Patient with elevated liver tests including elevated [...] 02/20/2024 Assessment & Plan (02/20/2024 12:07 PM MERCHANDISE STOCKER): We discussed the importance of weight loss. She will work on eating healthier and increasing exercise. She should avoid alcohol use. Unable to get GLP1 as she is not diabetic. Will check A1C to see if this has changed. 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 08/06/2017 Cancer Staging:Pathologic stage from 05/01/2017:Stage 0(pTis (DCIS), pN0, cM0, ER: Positive, VA: Positive, HER2: Not Assessed) - Signed by Suyapa Diaz, PhD on 09/09/2017 Clinical: Unsigned Encounters Date Type Department Care Team Description 03/09/2024 Telephone [facility] Gasteroenterology [facility] Medicine [facility] [place] [address] [place] [address] Shannan Lopez NP 02/26/2024 Orders Only [facility] GASTRO[facility]OLOGY Scanning, Provider 02/25/2024 Telephone [facility] Gastroenterology [address] [place] [address] [place] [address] Leticia Ridley RN 02/25/2024 Orders Only [facility] Gastroenterology [address] [facility] Medicine [facility] [place] [address] [place] [address] Leticia Ridley RN Elevated liver enzymes 02/20/2024 2:15 PM MERCHANDISE STOCKER Lab [facility] [address] [place] [id number] Elevated liver enzymes 02/20/2024 11:45 AM MERCHANDISE STOCKER Procedure visit [facility] Gastroenterology [address] [place] [address] [address]th [place] [address] [place] [address] Elevated liver enzymes 02/20/2024 11:00 AM MERCHANDISE STOCKER Office Visit [facility] Gastroenterology [address] [place] [address] 12th [place] [address] [place] [address] Shannan Lopez NP Elevated liver enzymes (Primary Dx); Class 1 obesity with body mass index (BMI) of 31.0 to 31.9 in adult, unspecified obesity type, unspecified whether serious comorbidity present 01/07/2024 11:00 AM MERCHANDISE STOCKER Office Visit [facility] Radiation Oncology [address] [place] [address] [place] [address] Dolly Rosa NP Encounter for follow-up surveillance of breast cancer from Last 3 Months Immunizations Name Administration Dates Next Due Influenza, Quadrivalent, Split, Intramuscular ,11/13/2013 Influenza, Quadrivalent, Spl it, Preservative Free, Intramuscular 11/14/2018,11/27/2017 Influenza, Trivalent, IM (MDV) 12/17/2012,2012 Influenza, Trivalent, Preservative Free, Intramu scular 10/15/2014 Moderna SARS-CoV-2 Monovalent Vaccination (12+ Y RS) 03/12/2020,02/13/2020 Surgical History Surgery Date Site/Laterality Comments [facility] NEUROPLASTY &/TRANSPOS MEDIAN NRV CARPAL TUNNE 02/12/2012 - 02/10/2013 Bilateral Neuroplasty Median Nerve At Carpal Tunnel - (Added by TW Conv) 2012 right, 2013 left FOOT SURGERY Foot Surgery - Right great toe fusion (Added by TW Conv) hardware BREAST LUMPECTOMY 02/11/2007 - 02/11/2008 Left Breast Lumpectomy - (Added by TW Conv) benign BREAST LUMPECTOMY 02/12/2000 - 02/10/2001 Right Breast Lumpectomy - (Added by TW Conv) benign BREAST LUMPECTOMY 02/11/2017 - 02/10/2018 Left ENDOMETRIAL ABLATION W/ NOVASURE 02/11/2010 - 02/10/2011 COLONOSCOPY 02/11/2017 - 02/10/2018 last done h/o polyps 2010, 2017 VAGINAL DELIVERY x 2 SEPTOPLASTY 10/31/2020 FLUORO GUIDED ASPIRATION OR INJECTION INTERMEDIATE JOINT RIGHT 10/20/2021 Right NASAL TURBINATE REDUCTION 02/11/2021 - 02/10/2022 Bilateral Medical History Medical History Date Comments Encounter for removal of sutures Encounter for removal of sutures - (Added by TW Conv) Allergy status to unspecifie d drugs, medicaments and biological substances status History of seasonal allergie s - (Added by TW Conv) Chronic sinusitis Recurrent sinu s infections - (Added by TW Conv) Allergic rhinitis DCIS (ductal carcinoma in situ) 2018 left PVC (premature ventricular contraction) takes metoprolol for tx PONV (postoperative nausea and vomiting) breast surgery Sleep apnea Basal cell carcinoma of skin of nose 2015 Basal cell carcinoma of nose - (Added by TW Conv) H/O therapeutic radiation 2018 left b reast Hyperlipemia 2 para 2 Decreased ROM of neck Deviated septum DAVE (obstructive sleep apnea) do es not use CPAP Post-menopause 55 y/o Family History Medical History Relation Name Comments Lung cancer Father Mesothelioma - (Added by TW Conv) Hyperlipidemia Mother High choleste rol - (Added by TW Conv) Actinic keratosis Other Family his tory of actinic keratosis - (Added by TW Conv) Anesthesia problems Neg Hx Relation Name Status Comments Daughter 1 Alive Daughter 2 Alive Father Mother Alive Other Social History Tobacco Use Types Packs/Day Years Used Date Smoking Tobacco: Never Smokeless Tobacco: Never AUDIT-C Answer Date Recorded Q1: How often do you have a drink containing alc ohol? Monthly or less 07/12/2022 Q2: How many drinks containi ng alcohol do you have on a typical day when you are drinking? 1 or 2 07/12/2022 Q3: How often do you have si x or more drinks on one occasion? Never 07/12/2022 Personal Safety Answer Date Recorded Have you ever been in or are you currently in a harmful physical or emotional relationship or is someone making you feel afraid or unsafe? Denies 07/30/2022 Comments No Sex and Gender Information Value Date Recorded Sex Assigned at Not on file Legal Sex Female 1:22 PM MERCHANDISE STOCKER Gender Identity Not on file Sexual Orientation Not on file Obstetrics History Last Filed Vital Signs Vital Sign Reading Time Taken Comments Blood Pressure 138/80 02/20/2024 10:41 AM MERCHANDISE STOCKER Pulse 82 02/20/2024 10:41 AM MERCHANDISE STOCKER Temperature 36.7 ??C (98 ??F) 02/20/2024 10:41 AM MERCHANDISE STOCKER Respiratory Rate 18 11/26/2023 9:13 AM CDT Oxygen Saturation 99% 11/26/2023 9:13 AM CDT Inhaled Oxygen Concentration - - Weight 90.7 kg (200 lb) 02/20/2024 10:41 AM MERCHANDISE STOCKER Height 170.2 cm (5' 7 ) 02/20/2024 10:41 AM MERCHANDISE STOCKER Body Mass Index 31.32 02/20/2024 10:41 AM MERCHANDISE STOCKER Plan of Treatment Health Maintenance Due Date Last Done Comments Cervical Cancer Screening 1960 Colon Cancer Screening-Colonoscopy 1960 Depression Screening 1960 Hepatitis C Screening 1960 DTaP/Tdap/Td Vaccine (1 - Tdap) 02/04/1971 Hepatitis B Screening 02/04/1978 Regular Well Visit/Exam 18-64 02/04/1978 Zoster Vaccine (1 of 2) 02/04/2010 Covid-19 Vaccine (3 - season) 2023 03/12/2020, 02/13/2020 Influenza Vaccine (#1) 2023 9, 11/27/2017, 02/06/2016, Additional history exists Breast Cancer Screening-Mammogram 03/22/2024 03/22/2023, 03/16/2022, 03/17/2021, Additional history exists Pneumococcal vaccine <65 Aged Out No longer eligible based on patient's age to complete this topic Medical Devices Implanted Type Area Uke Operator Device Identifier Shelf Expiration Date Model / Serial / Lot Rt Great Toe Ortho Instrumentation Right: Toes Procedures Procedure Name Priority Date/Time Associated Diagnosis Comments SCAN - LABS 02/26/2024 REGINALD QUALITATIVE WITH REFLEX TO REGINALD QUANTITATIVE Routine 02/20/2024 12:56 PM MERCHANDISE STOCKER Elevated liver enzymes MITOCHONDRIAL ANTIBODIES, QUALITATIVE Routine 02/20/2024 12:56 PM MERCHANDISE STOCKER Elevated liver enzymes SMOOTH MUSCLE ANTIBODY, QUALITATIVE Routine 02/20/2024 12:56 PM MERCHANDISE STOCKER Elevated liver enzymes HEPATITIS A ANTIBODY, IGM Routine 02/20/2024 12:56 PM MERCHANDISE STOCKER Elevated liver enzymes HEPATITIS A ANTIBODY, TOTAL Routine 02/20/2024 12:56 PM MERCHANDISE STOCKER Elevated liver enzymes HEPATITIS B CORE ANTIBODY, TOTAL Routine 02/20/2024 12:56 PM MERCHANDISE STOCKER Elevated liver enzymes HEPATITIS B SURFACE ANTIGEN Routine 02/20/2024 12:56 PM MERCHANDISE STOCKER Elevated liver enzymes DIFFERENTIAL AUTO Routine 02/20/2024 12: 41 PM MERCHANDISE STOCKER Elevated liver enzymes CBC WITH AUTO DIFFERENTIAL Routine 02/20/2024 12:41 PM MERCHANDISE STOCKER Elevated liver enzymes PROTIME-INR Routine 02/20/2024 12:41 PM MERCHANDISE STOCKER Elevated liver enzymes HEMOGLOBIN A1C Routine 02/20/2024 12:41 PM MERCHANDISE STOCKER Elevated liver enzymes EGFR Routine 02/20/2024 12:31 PM MERCHANDISE STOCKER Elevated liver enzymes [id number] Routine 02/20/2024 1 2:31 PM MERCHANDISE STOCKER Elevated liver enzymes COMPREHENSIVE METABOLIC PANEL Routine 02/20/2024 12:31 PM MERCHANDISE STOCKER Elevated liver enzymes FERRITIN Routine 02/20/2024 12:31 PM MERCHANDISE STOCKER Elevated liver enzymes IRON PROFILE W/ IBC Routine 02/20/2024 1 2:31 PM MERCHANDISE STOCKER Elevated liver enzymes LIPID PANEL Routine 02/20/2024 12:31 PM MERCHANDISE STOCKER Elevated liver enzymes BILIRUBIN, DIRECT Routine 02/20/2024 12: 31 PM MERCHANDISE STOCKER Elevated liver enzymes TSH Routine 02/20/2024 12:31 PM MERCHANDISE STOCKER Elevated liver enzymes LIVER ELASTOGRAPHY W/O IMAGING W/I&R Routine 02/20/2024 11:38 AM MERCHANDISE STOCKER Elevated liver enzymes SCREENING MAMMOGRAM BILATERAL W SATHISH Schedule Routine, Read Routine (OP Routine) 03/22/2023 10:01 AM MERCHANDISE STOCKER Intraductal carcinoma in situ of left breast Encounter for follow-up surveillance of breast cancer from Last 3 Months or Most Recently Relevant to Health Maintenance Results * SCAN - LABS (02/26/2024) us Provider Scanning Final Result * REGINALD ab ql w/rflx to REGINALD qn (02/20/2024 12:56 PM MERCHANDISE STOCKER) REGINALD Negative Comment: Interpretive Data Normal range for REGINALD Qualitative Antibody = Negative. 1. REGINALD is performed using indirect immunofluorescence against HEp-2 cells 2. REGINALD titers are performed on all positive qualitative results. 3. A significantly positive REGINALD result is defined as a positive nuclear fluorescence at a titer of 1:80 or greater. 4. 15% of normal people above age 65 have significantly positive REGINALD results. ??5% or less of normal people age 65 or under have significantly positive REGINALD results. Current interpretive data was last revised on 2019. Blood 02/20/2024 12:5 6 PM MERCHANDISE STOCKER 02/20/2024 1:17 PM MERCHANDISE STOCKER us Shannan Lopez JUNIOR LEGAL SECRETARY LAB BLOOD ORDERABLES Fin al Result [facility] Department [place] [address] * Smooth muscle antibody, qualitative (02/20/2024 12:56 PM MERCHANDISE STOCKER) Anti-smooth muscle Negative Negative Blood 02/20/2024 12:5 6 PM MERCHANDISE STOCKER 02/20/2024 1:17 PM MERCHANDISE STOCKER Shannan Lopez NP LAB BLOOD ORDERABLES Fin al Result Performing Organization Address [facility] de Phone Number [facility] [place] [address] * Mitochondrial antibodies, qualitative (02/20/2024 12:56 PM MERCHANDISE STOCKER) Anti-mitochond rial Negative Negative Blood 02/20/2024 12:5 6 PM MERCHANDISE STOCKER 02/20/2024 1:17 PM MERCHANDISE STOCKER Shannan Lopez NP LAB BLOOD ORDERABLES Fin al Result Performing Organization Address [facility] de Phone Number [facility] [place] [address] * Hepatitis A antibody, IgM Blood (02/20/2024 12:56 PM MERCHANDISE STOCKER) Hep A IgM Nonreactive Nonreactive Blood 02/20/2024 12:5 6 PM MERCHANDISE STOCKER 02/20/2024 1:17 PM MERCHANDISE STOCKER Result [facility] Shannan Lopez NP LAB MICROBIOLOGY - GENER AL ORDERABLES Final Result Performing Organization Address [facility] de Phone Number [place] [address] * Hepatitis A antibody, total Blood (02/20/2024 12:56 PM MERCHANDISE STOCKER) Hep A total Nonreactive Nonreactive Blood 02/20/2024 12:5 6 PM MERCHANDISE STOCKER 02/20/2024 1:17 PM MERCHANDISE STOCKER Shannan Lopez NP LAB MICROBIOLOGY - GENER AL ORDERABLES Final Result Performing Organization Address [facility] Co de Phone Number [facility] Department [place] [address] * Hepatitis B core antibody, total Blood (02/20/2024 12:56 PM MERCHANDISE STOCKER) [facility] Hep B core IgG/IgM Nonreactive Nonreactive Blood 02/20/2024 12:5 6 PM MERCHANDISE STOCKER 02/20/2024 1:17 PM MERCHANDISE STOCKER Shannan Lopez NP LAB MICROBIOLOGY - GENER AL ORDERABLES Final Result Performing Organization Address [facility] Co de Phone Number [facility] [place] [address] * Hepatitis B Surface Antigen Blood (02/20/2024 12:56 PM MERCHANDISE STOCKER) [facility] HepBsAg Nonreactive Nonreactive Blood 02/20/2024 12:5 6 PM MERCHANDISE STOCKER 02/20/2024 1:17 PM MERCHANDISE STOCKER Shannan Lopez NP LAB MICROBIOLOGY - GENER AL ORDERABLES Final Result Performing Organization Address [facility] de Phone Number [facility] Department [place] [address] * Differential, auto (02/20/2024 12:41 PM MERCHANDISE STOCKER) [facility] Neutrophil abs 3.3 1.5 - 6.5 K/cumm Imm gran abs 0.0 0.0 - 0.1 K/cumm [facility] Lymphocyte abs 1.6 0.8 - 3.3 K/cumm [facility] Monocyte abs 0.5 0.2 - 0.8 K/cumm [facility] Eosinophil abs 0.2 0.0 - 0.5 K/cumm [facility] Basophil abs 0.0 0.0 - 0.1 K/cumm [facility] Neutrophil pct 59.0 % [facility] Comment: Interpretive Data Percent cell count reference ranges are not reported, since discordance with absolute values may lead to misinterpretation of CBC data. Current Interpretive Data was last revised on 2017. Imm gran pct 0.2 % [facility] Comment: Interpretive Data Percent cell count reference ranges are not reported, since discordance with absolute values may lead to misinterpretation of CBC data. Current Interpretive Data was last revised on 2017. Lymphocyte pct 27.7 % [facility] Comment: Interpretive Data Percent cell count reference ranges are not reported, since discordance with absolute values may lead to misinterpretation of CBC data. Current Interpretive Data was last revised on 2017. Monocyte pct 9.4 % [facility] Comment: Interpretive Data Percent cell count reference ranges are not reported, since discordance with absolute values may lead to misinterpretation of CBC data. Current Interpretive Data was last revised on 2017. Eosinophil pct 3.0 % [facility] Comment: Interpretive Data Percent cell count reference ranges are not reported, since discordance with absolute values may lead to misinterpretation of CBC data. Current Interpretive Data was last revised on 2017. Basophil pct 0.7 % [facility] Comment: Interpretive Data Percent cell count reference ranges are not reported, since discordance with absolute values may lead to misinterpretation of CBC data. Current Interpretive Data was last revised on 2017. Blood 02/20/2024 12:4 1 PM MERCHANDISE STOCKER 02/20/2024 1:18 PM MERCHANDISE STOCKER Shannan Lopez NP LAB BLOOD ORDERABLES Fin al Result [facility] Department of Laboratories [place], [place] [id number] * (ABNORMAL) CBC with auto differential (02/20/2024 12:41 PM MERCHANDISE STOCKER) WBC 5.6 3.8 - 9.9 K/cumm Hgb 15.5 11.9 - 15.5 g/dL [facility] Hct 46.0(H) 35.6 - 45.5 % [facility] Plt 210 150 - 400 K/cumm [facility] MPV 9.4 9.1 - 12.3 fL [facility] RBC 4.93 3.90 - 5.20 M/cumm [facility] MCV 93.3 81.3 - 96.4 fL [facility] MCH 31.4 27.1 - 33.3 pg [facility] MCHC 33.7 32.3 - 35.7 g/dL [facility] RDW CV 13.2 11.1 - 14.9 % [facility] RDW SD 44.9 35.7 - 48.1 fL [facility] NRBC abs 0.00 0.00 - 0.01 K/cumm [facility] Blood 02/20/2024 12:4 1 PM MERCHANDISE STOCKER 02/20/2024 1:18 PM MERCHANDISE STOCKER Shannan Lopez NP LAB BLOOD ORDERABLES Fin al Result Performing Organization Address [facility] de Phone Number [facility] [place] [address] * Protime-INR (02/20/2024 12:41 PM MERCHANDISE STOCKER) PT 12.3 9.7 - 13.0 sec INR 1.14 0.90 - 1.20 [facility] Comment: Interpretive data Oral anticoagulant therapeutic ranges: Venous thromboembolism prophylaxis or treatment: 2.0-3.0 CARDIOLOGY Standard range: 2.0-3.0 High-intensity range: 2.5-3.5 Refer to indication-specific guidelines for appropriate target ranges for prosthetic heart valve replacement. Current interpretive data was last revised on 2019. Blood 02/20/2024 12:4 1 PM MERCHANDISE STOCKER 02/20/2024 1:18 PM MERCHANDISE STOCKER Shannan Lopez NP LAB BLOOD ORDERABLES Fin al Result Performing Organization Address [facility] de Phone Number [facility] [place] [address] * (ABNORMAL) Hemoglobin A1c (02/20/2024 12:41 PM MERCHANDISE STOCKER) Hgb A1C 5.9(H) 4.0 - 5.6 % Estimated Average Glucose 123 mg/dL [facility] Comment: The ADA recommends reporting an estimated Average Glucose (eAG) with all Hemoglobin A1c results using the equation derived from a study of 507 normal and diabetic adults. ??Minority populations were underrepresented and children were not included. ?? (Diabetes Care 2020; 43(S1): S66-S76). ??The eAG is not equivalent to a fasting glucose. Blood 02/20/2024 12:4 1 PM MERCHANDISE STOCKER 02/20/2024 1:18 PM MERCHANDISE STOCKER Shannan Lopez NP LAB BLOOD ORDERABLES Fin al Result [facility] Department [place] [address] * eGFR (02/20/2024 12:31 PM MERCHANDISE STOCKER) Pathologist [facility] eGFR 90 >=60 mL/min/1. 73 m2 Comment: Interpretive Data Reference Interval Normal ?>/= 90 mL/min/1.73m2 Mildly decreased* ? 60 - 89 mL/min/1.73m2 Mildly to moderately decreased ?45 - 59 mL/min/1.73m2 Moderately to severely decreased ??30 - 44 mL/min/1.73m2 Severely decreased ?15 - 29 mL/min/1.73m2 Kidney Failure ?< 15 ??mL/min/1.73m2 *Relative to young adult level Estimated glomerular filtration rate is determined by the 2020 CKD-EPI equation recommended by the National Kidney Foundation (A Unifying Approach to GFR Estimation: Recommendations of the NKF-ASK Task Force on Reassessing the Inclusion of Race in Diagnosing Kidney Disease, JASN 2020). The CKD-EPI equation should not be used for patients with unstable renal function and has not been validated in children and those over 70. Current interpretive data was last reviewed 2020. Blood 02/20/2024 12:3 1 PM MERCHANDISE STOCKER 02/20/2024 1:16 PM MERCHANDISE STOCKER Shannan Lopez JUNIOR LEGAL SECRETARY LAB BLOOD ORDERABLES Fin al Result Performing Organization Address [facility] Co de Phone Number [place] [address] * (ABNORMAL) Iron profile w/ IBC (02/20/2024 12:31 PM MERCHANDISE STOCKER) Iron 186(H) 35 - 145 mcg/dL TIBC 301 250 - 400 mcg/dL [facility] Transferrin saturation 62(H) 20 - 50 % [facility] Blood 02/20/2024 12:3 1 PM MERCHANDISE STOCKER 02/20/2024 1:16 PM MERCHANDISE STOCKER Shannan Lopez JUNIOR LEGAL SECRETARY LAB BLOOD ORDERABLES Fin al Result Performing Organization Address [facility] Co de Phone Number [facility] [place] [address] * [id number] (02/20/2024 12:31 PM MERCHANDISE STOCKER) alpha-1 antitrypsin 136 90 - 200 mg/dL Blood 02/20/2024 12:3 1 PM MERCHANDISE STOCKER 02/20/2024 1:16 PM MERCHANDISE STOCKER Shannan Lopez JUNIOR LEGAL SECRETARY LAB BLOOD ORDERABLES Fin al Result Performing Organization Address [facility] Co de Phone Number [facility] [place] [address] * TSH (02/20/2024 12:31 PM MERCHANDISE STOCKER) Thyroid Stimulating Hormone 1.53 0.30 - 4.20 mcIUnit/mL Blood 02/20/2024 12:3 1 PM MERCHANDISE STOCKER 02/20/2024 1:16 PM MERCHANDISE STOCKER Shannan Lopez NP LAB BLOOD ORDERABLES Fin al Result Performing Organization Address [facility] de Phone Number [facility] [place] [address] * (ABNORMAL) Ferritin (02/20/2024 12:31 PM MERCHANDISE STOCKER) Pathologist [facility] Ferritin 274(H) 13 - 150 ng/mL Blood 02/20/2024 12:3 1 PM MERCHANDISE STOCKER 02/20/2024 1:16 PM MERCHANDISE STOCKER Shannan Lopez NP LAB BLOOD ORDERABLES Fin al Result Performing Organization Address [facility] de Phone Number [facility] [place] [address] * Bilirubin, direct (02/20/2024 12:31 PM MERCHANDISE STOCKER) Pathologist [facility] Center Bilirubin, direct 0.2 0.1 - 0.3 mg/dL Blood 02/20/2024 12:3 1 PM MERCHANDISE STOCKER 02/20/2024 1:16 PM MERCHANDISE STOCKER Shannan Lopez JUNIOR LEGAL SECRETARY LAB BLOOD ORDERABLES Fin al Result Performing Organization Address [facility] de Phone Number [facility] [place] [address] * (ABNORMAL) Lipid panel (02/20/2024 12:31 PM MERCHANDISE STOCKER) Cholesterol 250(H) 30 - 199 mg/dL Comment: Interpretive Data Ages < or = 19 years ??Acceptable: ? <170 mg/dL ??Borderline high: ??170-199 mg/dL ??High: ? >or= 200 mg/dL Ages > or = 20 years ??Desirable: ?<200 mg/dL ??Borderline high: ??200-239 mg/dL ??High: ? >or= 240 mg/dL Literature References: 1. Expert Panel on Integrated Guidelines for Cardiovascular Health and Risk Reduction in Children and Adolescents. Pediatrics 2011;128:S213 2. NCEP Expert Panel. Circulation 2004;110:227 Current Interpretive Data was last revised on 2017. Triglycerides 282(H) <=149 mg/dL [facility]ING LOPE[facility] Comment: Interpretive Data Ages < or = 9 years ??Acceptable: ? <75 mg/dL ??Borderline high: ??75-99 mg/dL ??High: ? >or= 100 mg/dL Ages 10 to 20 years ??Acceptable: ? <90 mg/dL ??Borderline high: ??90-129 mg/dL ??High: ? >or= 130 mg/dL Ages > or = 20 years ??Desirable: ?<150 mg/dL ??Borderline high: ??150-199 mg/dL ??High: ? 200-499 mg/dL ?Very high: ?? >or= 499 mg/dL Literature References: 1. Expert Panel on Integrated Guidelines for Cardiovascular Health and Risk Reduction in Children and Adolescents. Pediatrics 2011;128:S213 2. NCEP Expert Panel. Circulation 2004;110:227 Current Interpretive Data was last revised on 2017. HDL 54 >=40 mg/dL YING LOPEZ Comment: Interpretive Data Ages < or = 19 years ??Acceptable: ? >45 mg/dL ??Borderline low: ?? 40-45 mg/dL ??Low: ? <40 mg/dL Ages > or = 20 years ??Desirable: ?>or= 60 mg/dL ??Low: ? <40 mg/dL Literature References: 1. Expert Panel on Integrated Guidelines for Cardiovascular Health and Risk Reduction in Children and Adolescents. Pediatrics 2011;128:S213 2. NCEP Expert Panel. Circulation 2004;110:227 Current Interpretive Data was last revised on 2017. LDL, calculated 145(H) <=129 mg/dL [facility] Comment: Interpretive Data Ages < or = 19 years ??Acceptable: ? <110 mg/dL ??Borderline high: ??110-129 mg/dL ??High: ?>or= 130 mg/dL Ages > or = 20 years ??Optimal: ? <100 mg/dL ??Near optimal: ?100-129 mg/dL ??Borderline high: ?? 130-159 mg/dL ??High: ?>160 mg/dL Calculated using the Gold LDL-C estimating equation. This equation was implemented on 2023. Prior to this date LDL-C was estimated using the Friedewald equation. Literature References: 1. Expert Panel on Integrated Guidelines for Cardiovascular Health and Risk Reduction in Children and Adolescents. Pediatrics 2011;128:S213 2. NCEP Expert Panel. Circulation 2004;110:227 3. Gold Vale et al. SANTHOSH Cardiol. 2020 June 11;5(5):540-548. doi: 10.1001/jamacardio.2020.0013 Current Interpretive Data was last revised on 2023. Non-HDL Cholesterol 196 mg/dL [facility] Comment: Interpretive Data Ages < or = 19 years ??Acceptable: ?<120 mg/dL ??Borderline high: ??120-144 mg/dL ??High: ?>145 mg/dL Ages > or = 20 years ??When triglycerides are >200 mg/dL, Non-HDL cholesterol is a secondary target of ? therapy with treatment goals that are 30 mg/dL greater than the LDL cholesterol target. ? Literature References: 1. Expert Panel on Integrated Guidelines for Cardiovascular Health and Risk Reduction in Children and Adolescents. Pediatrics 2011;128:S213 2. NCEP Expert Panel. Circulation 2004;110:227 Current Interpretive Data was last revised on 2017. Chol/HDL ratio 5 [facility] Blood 02/20/2024 12:3 1 PM MERCHANDISE STOCKER 02/20/2024 1:16 PM MERCHANDISE STOCKER Shannan Lopez NP LAB BLOOD ORDERABLES Fin al Result [facility] Department [place] [address] * (ABNORMAL) Comprehensive metabolic panel (02/20/2024 12:31 PM MERCHANDISE STOCKER) Sodium 139 135 - 145 mmol/L Potassium, pl 4.2 3.3 - 4.9 mmol/L [facility] Chloride 105 97 - 110 mmol/L [facility] CO2 26 22 - 32 mmol/L [facility] Anion gap 8 2 - 15 mmol/L [facility] BUN 21 6 - 25 mg/dL [facility] Creatinine 0.74 0.60 - 1.10 mg/dL [facility] Glucose 98 70 - 199 mg/dL [facility] Comment: Interpretive Data Fasting glucose >/= 126 mg/dl is diagnostic for diabetes. ?? Fasting is defined as no caloric intake for at least 8 hours. Fasting glucose between 100 mg/dl to 125 mg/dl is diagnostic of prediabetes. In a patient with classic symptoms of hyperglycemia or hyperglycemic crisis, a random glucose >/= 200 mg/dl is diagnostic for diabetes. In the absence of unequivocal hyperglycemia, results should be confirmed by repeat testing. The classification and Diagnosis of Diabetes Diabetes Care 2021; 46: S19-S40. Current interpretive data was last revised 2022. Calcium 10.1 8.5 - 10.3 mg/dL [facility] Bilirubin, total 1.5(H) 0.1 - 1.2 mg/dL [facility] Protein, pl 7.9 6.5 - 8.5 g/dL [facility] Albumin 4.6 3.5 - 5.0 g/dL [facility] Alk phos 85 40 - 130 Units/L [facility] ALT 41 7 - 45 Units/L [facility] AST 40 10 - 45 Units/L [facility] Blood 02/20/2024 12:3 1 PM MERCHANDISE STOCKER 02/20/2024 1:16 PM MERCHANDISE STOCKER Shannan Lopez NP LAB BLOOD ORDERABLES Fin al Result [facility] Department [place] [address] * Liver Elastography w/o Imaging [facility]/I&R -[facility] (All Locations) (02/20/2024 11:38 AM MERCHANDISE STOCKER) Anatomical Region Laterality Modality Other Shannan Lopez NP GI PROCEDURE ORDERABLES Final Result * Screening Mammogram Bilateral W Sathish (03/22/2023 10:01 AM MERCHANDISE STOCKER) Anatomical Region Laterality Modality Breast Bilateral Mammography Narrative 03/26/2023 1:13 PM MERCHANDISE STOCKER Mammogram Technique: Bilateral Digital Breast Tomosynthesis, Bilateral C-view 2D Screening mammogram. ??Views obtained: ??bilateral craniocaudal and bilateral mediolateral oblique. ??Computer Aided Detection was performed. Mammogram Findings: The present examination has been compared to prior imaging studies performed at [facility] on 03/01/2020, 03/17/2021 and 03/16/2022. There are scattered areas of fibroglandular density. There is no suspicious abnormality in either breast. There are no significant changes from the prior study. Impression: There is no mammographic evidence of malignancy. Annual screening mammography is recommended. OVERALL FINAL ASSESSMENT: BI-RADS CATEGORY 1: ??Negative. Procedure Note Melva Bowman MD - 03/26/2023 Mammogram Technique: Bilateral Digital Breast Tomosynthesis, Bilateral C-view 2D Screening mammogram. Views obtained: bilateral craniocaudal and bilateral mediolateral oblique. Computer Aided Detection was performed. Mammogram Findings: The present examination has been compared to prior imaging studies performed at [facility] on 03/01/2020, 03/17/2021 and 03/16/2022. There are scattered areas of fibroglandular density. There is no suspicious abnormality in either breast. There are no significant changes from the prior study. Impression: There is no mammographic evidence of malignancy. Annual screening mammography is recommended. OVERALL FINAL ASSESSMENT: BI-RADS CATEGORY 1: Negative. Heavenly Holm NP IMG MAMMO PROCEDURES Final Resu lt from Last 3 Months or Most Recently Relevant to Health Maintenance Insurance [facility] Care Teams Solidworks Drafter Relationship Specialty Start Date End Date Monica Lopez MD [address] [place] [address] PCP - General 04/30/17 Betsy Truong MD [address] [facility] [address] [place] [address] Radiation Oncologist Radiation Oncology 09/09/17 Suyapa Diaz, PhD [address] [facility] [address] [place] [address] Nurse Practitioner Radiation Oncology 09/09/17 Huan Nelson MD [address] [place] [address] Consulting Physician Otolaryngology 10/31/20 Heavenly Holm, JUNIOR LEGAL SECRETARY [address] [facility], [address] [place] [address] Nurse Practitioner Medical Oncology 01/02/22 Meir Marin MD [address] [facility] [address] [facility]Y, [facility] [address] [place] [address] Surgeon Thoracic Surgery 01/01/23
--- OUTSIDE RECORDS SUMMARY | 2024-03-16 11:04 | XMS_ITS | Clinical Summary ---
Author Organization [facility] Address [address] [place] [address]. [place], [place] [id number] [place] [address] Care Team Providers Care Day Care Teacher Name Role Phone Monica Lopez MD Primary Care Provider [phone] Zak Bolanos MD Unavailable Unavailabl e Allergies Active Allergy Reactions Criticality Noted Date Comments Penicillins Unknown 02/15/2017 Medications rosuvastatin 10 MG tablet Take 10 mg by mouth daily. Active meloxicam 15 MG tablet Take 15 mg by mouth daily. Active ipratropium 0.06 % nasal spray 2 sprays by Nasal route 3 (three) times daily. Active vitamin D2, ergocalciferol, 22023 UNITS capsule 01/28/2017 Active magnesium oxide 400 MG tablet Take 400 mg by mouth 2 (two) times daily. Active tamoxifen 10 MG tablet Take 10 mg by mouth daily. Active fenofibrate 145 MG tablet Take 145 mg by mouth daily. Active aspirin 81 MG chewable tablet Chew 81 mg by mouth daily. Active metoprolol succinate ER 50 MG 24 hr tablet Take 1 tablet (50 mg total) by mouth daily. 30 tablet 07/07/2019 Active Active Problems Problem Noted Date Diagnosed Date PVCs (premature ventricular contractions) 2017 Hyperlipidemia Allergic rhinitis due to pollen Family History Medical History Relation Comments Coronary artery disease Mother Coronary artery disease Sister Relation Status Comments Father Mother Alive Sister Alive Social History Tobacco Use Types Packs/Day Years Used Date Smoking Tobacco: Never Smokeless Tobacco: Never Alcohol Use Standard Drinks/Week Comments Yes 0 (1 standard drink = 0.6 oz pur e alcohol) Comments Unknown Sex and Gender Information Value Date Recorded Sex Assigned at Not on file Legal Sex Female 10:54 PM STRUCTURAL ARCHITECT Gender Identity Not on file Sexual Orientation Not on file 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 Not on file Not on file Last Filed Vital Signs Vital Sign Reading Time Taken Comments Blood Pressure 114/79 04/25/2018 9:28 AM CDT Pulse 70 04/25/2018 9:28 AM CDT Temperature - - Respiratory Rate 18 04/25/2018 9:28 AM CDT Oxygen Saturation 97% 04/25/2018 9:28 AM CDT Inhaled Oxygen Concentration - - Weight 87.1 kg (192 lb) 04/25/2018 9:28 AM CDT Height 172.7 cm (5' 8 ) 04/25/2018 9:28 AM CDT Body Mass Index 29.19 04/25/2018 9:28 AM CDT Plan of Treatment Health Maintenance Due Date Last Done Comments Cervical Cancer Screening Pap Smear (Age 30 to 64) Every 3 Years 1960 Colorectal Cancer Screening Colonoscopy (10 Years) 1960 Annual Physical 02/04/1963 Hepatitis C 02/04/1978 DTaP, Tdap and Td Vaccines (1 - Tdap) 02/04/1979 Cervical Cancer Screening Pap with HPV Testing (Age 30 to 64) Every 5 Years 02/04/1990 Cervical Cancer Screening with HPV 02/04/1990 Mammogram Screening 2000 Zoster Vaccines (1 of 2) 02/04/2010 COVID-19 Vaccine ( season) 2023 Influenza Adult (#1) 2023 11/27/2017, 02/06/2016, 10/15/2014, Additional history exists RSV Immunization or 60+ Years (1 - 1-dose 75+ series) 02/04/2035 Meningococcal B Vaccine Aged Out No l onger eligible based on patient's age to complete this topic Meningococcal Vaccine Aged Out No rayo jerrod eligible based on patient's age to complete this topic Pneumococcal Vaccine: Pediatrics (0 to 5 Years) and At-Risk Patients (6 to 64 Years) Aged Out No longer eligible based on patient's age to complete this topic RSV Immunizations Under 20 Months Aged Out No longer eligible based on patient's age to complete this topic Insurance [facility] Care Teams Day Care Teacher Relationship Specialty Start Date End Date Monica Lopez MD [address] [place] [address] PCP - General INTERNAL MEDICINE 02/27/17 Zak Bolanos MD [address] [place] [address] [employer] Signal Technician CARDIOVASCULAR DISEASE 02/27/17
[2024-03-16 11:05] LABS: SARS-CoV-2 RNA PCR Negative (Negative)
--- OUTSIDE RECORDS SUMMARY | 2024-03-16 11:05 | XMS_ITS | Clinical Summary ---
Author Organization [facility] Address [address] [place] [address] Care Team Providers Care Straw Hat Brusher Name Role Phone Unavailable Primary Care Provider Unavailabl e Source Comments [facility],non-owned Affiliates and Associated Physician Practices is amultiple site organization consisting of ambulatory clinics and hospital sitesin [place], [place], [place] and [place]. This disclosure is being madepursuant to the Care Everywhere program and may not contain all information available regarding this patient. Last updated 17.[facility] [employer] Allergies Active Allergy Reactions Criticality Noted Date Comments Penicillins Rash Low 03/29/2011 Medications * Be aware that medications may not be up to date on this document. Alwaysverify current medications with the patient. Medication Sig Dispensed Refills Start Date End Date Status diclofenac sodium (VOLTAREN) 75 MG tablet Take 75 mg by mouth 2 times daily. Active rosuvastatin (CRESTOR) 10 MG tablet Take 10 mg by mouth once daily. Active vitamin D, ergocalciferol, (DRISDOL) 89793 UNIT capsule Take 50,000 units twice weekly Active Multiple Vitamin (MULTI-VITAMIN PO) Take by mouth. Ac tive Calcium Carbonate-Vitamin D (CALCIUM + D PO) Take by mouth. Acti ve Fexofenadine-Pseudoeph edrine (BENITA-D 12 HOUR PO) Take by mouth. 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 Family History Medical History Relation Name Comments Hypercholesterolemia Mother Relation Name Status Comments Mother Social History Tobacco Use Types Packs/Day Years Used Date Smoking Tobacco: Never Alcohol Use Standard Drinks/Week Comments Yes 0 (1 standard drink = 0.6 oz pur e alcohol) social ETOH few times monthly Sex and Gender Information Value Date Recorded Sex Assigned at Not on file Gender Identity Not on file Sexual Orientation Not on file Last Filed Vital Signs Vital Sign Reading Time Taken Comments Blood Pressure 114/78 04/19/2011 10:35 AM SOCIAL MEDIA MARKETER Pulse - - Temperature 37.1 ??C (98.7 ??F) 04/19/2011 10:[address] Respiratory Rate - - Oxygen Saturation - - Inhaled Oxygen Concentration - - Weight 86.2 kg (190 lb) 11/11/2014 2:58 PM CDT Height 175.3 cm (5' 9 ) 11/11/2014 2:58 PM CDT Body Mass Index 28.06 11/11/2014 2:58 PM CDT Plan of Treatment Health Maintenance Due Date Last Done Comments COLOGUARD (AGES 45-75) - COL ON CA SCREENING 1960 COLON MONITORING 1960 COLONOSCOPY - COLON CA SCREENING 1960 CT COLONOGRAPHY - COLON CA SCREENING 1960 Colorectal Cancer Screening 1960 FIT - COLON CA SCREENING 1960 FLEX SIG - COLON CA SCREENING 1960 MAMMOGRAM 1960 PAP SMEAR 1960 HIV SCREENING 02/04/1975 HEPATITIS C SCREENING 01/31/1978 DTAP/TDAP/TD VACCINES (1 - Tdap) 02/04/1979 PNEUMOCOCCAL VACCINE 50+ (1 of 1 - PCV) 02/04/2010 ZOSTER VACCINE (1 of 2) 02/04/2010 COVID-19 VACCINE ( - 2023-2 5 season) 2023 INFLUENZA VACCINE (#1) 2023 DEPRESSION SCREENING 02/12/2024 Respiratory Syncytial Virus (RSV) Vaccine Pt: or over 60 yrs (1 - 1-dose 75+ series) 02/04/2035 HEPATITIS B VACCINE Aged Out No longe r eligible based on patient's age to complete this topic HIB VACCINE Aged Out No longer eligi ble based on patient's age to complete this topic HPV VACCINE Aged Out No longer eligi ble based on patient's age to complete this topic MENINGOCOCCAL (Group B) VACCINE Aged Out No longer eligible based on patient's age to complete this topic MENINGOCOCCAL VACCINE Aged Out No rayo jerrod eligible based on patient's age to complete this topic PNEUMOCOCCAL VACCINE Aged Out No long er eligible based on patient's age to complete this topic
--- OUTSIDE RECORDS SUMMARY | 2024-03-16 11:05 | XMS_ITS | Patient Health Summary ---
Author Organization [facility] Address [address] [facility] [place] [address] Care Team Providers Care Cigar Making Machine Operator Name Role Phone Unavailable Primary Care Provider Unavailabl e Note from [facility],non-owned Affiliates and Associated Physician Practices is amultiple site organization consisting of ambulatory clinics and hospital sitesin [place], [place], [place] and [place]. This disclosure is being madepursuant to the Care Everywhere program and may not contain all information available regarding this patient. Last updated 17.[facility] Allergies * Penicillins(Rash) -Low Criticality Medications * Be aware that medications may not be up to date on this document. Alwaysverify current medications with the patient. * diclofenac sodium (VOLTAREN) 75 MG tablet Take 75 mg by mouth 2 times daily. * rosuvastatin (CRESTOR) 10 MG tablet Take 10 mg by mouth once daily. * vitamin D, ergocalciferol, (DRISDOL) 45766 UNIT capsule Take 50,000 units twice weekly * Multiple Vitamin (MULTI-VITAMIN PO) Take by mouth. * Calcium Carbonate-Vitamin D (CALCIUM + D PO) Take by mouth. * Fexofenadine-Pseudoephedrine (BENITA-D 12 HOUR PO) Take by mouth. 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 Social History Tobacco Use Types Packs/Day Years [...] Comments Blood Pressure 114/78 04/19/2011 10:35 AM MATERIAL STRESS TESTER Pulse - - Temperature 37.1 ??C (98.7 ??F) 04/19/2011 10:[address] Respiratory Rate - - Oxygen Saturation - - Inhaled Oxygen Concentration - - Weight 86.2 kg (190 lb) 11/11/2014 2:58 PM CDT Height 175.3 cm (5' 9 ) 11/11/2014 2:58 PM CDT Body Mass Index 28.06 11/11/2014 2:58 PM CDT Procedures * DERMATOPATHOLOGY(Performed 09/08/2019) * IMAGING/RADIOLOGY/XRAY RESULTS ORDER(Performed 10/23/2014) * XR FOOT BILAT WT BEARING 2VW(Performed 03/29/2011) Performed for Hallux rigidus, Arthralgia, Osteoarthritis of foot joint Results * DERMATOPATHOLOGY (09/08/2019 12:00 AM CDT) Case Report Dermatopathology Report ? Case: [id number] ? Authorizing Provider: ??Daniel Cleaning MD ? Collected: ? 09/08/2019 12:00 AM ? Ordering Location: ? [facility] Derm[facility] ?Received: ?09/09/2019 09:59 AM ? Pathologist: ? Kavin Blevins MD ? Specimen: ?Skin, left upper lid ? 0 5:14 PM CDT DERMATOPATHOLOGY LABORATORY Final Diagnosis Specimen A. SKIN, left upper lid: DERMAL FIBROSIS (L90.5) (see microscopic description) 0 5:14 PM T DERMATOPATHOLOGY LABORATORY Clinical History Lesion uncertain behavior poss scar/fibrosis R/O skin Ca. 0 5:14 PM CDT DERMATOPATHOLOGY LABORATORY Gross Description Specimen A: Received is one formalin filled container labeled with the patient's name and designated left upper lid. The specimen consists of a non-oriented ellipse of skin measuring [id number]. The epidermal surface is unremarkable. The margin is inked green. Jar 0. 0 5:14 PM CDT DERMATOPATHOLOGY LABORATORY Microscopic Description Specimen A. SKIN, left upper lid: The epidermis is unremarkable. There is focal dermal fibrosis. Tumor is not present in the sections examined. Additional deeper sections were obtained and reviewed. 0 5:14 PM CDT DERMATOPATHOLOGY LABORATORY Disclaimer An external and internal positive and negative controls are appropriate for the histochemical, immunohistochemical and immunofluorescence stain(s) in this case (if any), except where stated explicitly. The performance characteristics of the stain(s) cited in this report were developed and its performance characteristic determined by the Dermatopathology Laboratory at [facility], directed by Dr. Prosper Blevins. These tests need not be, and therefore are not, approved by the [place] Food and Drug Administration. The tests are used for clinical purposes. Billing Codes Specimen Charges Stain Charges 37000 1 0 5:14 PM CDT DERMATOPATHOLOGY LABORATORY Embedded Images 0 5:14 PM CDT DERMATOPATHOLOGY LABORATORY Pathology/Cytolog y TISSUE SPECIMEN FROM SKIN / Unknown 09/08/2019 09/09/2019 9:59 AM CDT Daniel Cleaning MD LAB - PATHOLOGY/CYTO LOGY ORDERABLES DERMATOPATHOLOGY LABORATORY [facility] - Department of Dermatology [facility] [address] [phone] * IMAGING/RADIOLOGY/XRAY RESULTS ORDER (10/23/2014) Anatomical Region Laterality Modality Other Monica Lopez MD IMAGING * XR FOOT BILAT WEIGHT BEARING (03/29/2011 1:33 PM MATERIAL STRESS TESTER) Anatomical Region Laterality Modality Ankle / Foot, Lower Extremity Ra diographic Imaging 03/29/2011 3:59 PM MATERIAL STRESS TESTER Impressions 03/29/2011 4:09 PM MATERIAL STRESS TESTER 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 Narrative 03/29/2011 4:09 PM MATERIAL STRESS TESTER THREE VIEWS OF THE FEET BILATERAL Three views of each of the feet are performed weight-bearing. RIGHT FOOT: There is normal alignment. There is mild narrowing of the first metatarsophalangeal joint with sclerosis. Incidental note is made of a small os trigonum. There is a posterior calcaneal spur. LEFT FOOT: There is mild midfoot degenerative change. There is significant degenerative change with joint space narrowing, sclerosis and osteophytes from the first metatarsophalangeal joint as well. No significant midfoot degenerative change is noted. Tiny inferior calcaneal spur is noted. Procedure Note Jennifer Moreno MD - 03/29/2011 THREE VIEWS OF THE FEET BILATERAL Three views of each of the feet are performed weight-bearing. RIGHT FOOT: There is normal alignment. There is mild narrowing of the first metatarsophalangeal joint with sclerosis. Incidental note is made of a small os trigonum. There is a posterior calcaneal spur. LEFT FOOT: There is mild midfoot degenerative change. There is significant degenerative change with joint space narrowing, sclerosis and osteophytes from the first metatarsophalangeal joint as well. No significant midfoot degenerative change is noted. Tiny inferior calcaneal spur is noted. IMPRESSION 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 Chiara Heller DPM DIAGNOSTIC IMAGING O RDERABLES
--- OUTSIDE RECORDS SUMMARY | 2024-03-16 11:05 | XMS_ITS | Referral Summary ---
Author Organization [facility] Address [address] [place] [address] Care Team Providers Care Community Health Director Name Role Phone Unavailable Primary Care Provider Unavailabl e Source Comments [facility],non-owned Affiliates and Associated Physician Practices is amultiple site organization consisting of ambulatory clinics and hospital sitesin [place], [place], [place] and [place]. This disclosure is being madepursuant to the Care Everywhere program and may not contain all information available regarding this patient. Last updated 17.[facility] Allergies Active Allergy Reactions Criticality Noted Date [...] once daily. Active vitamin D, ergocalciferol, (DRISDOL) 71916 UNIT capsule Take 50,000 units twice weekly [...] Comments Blood Pressure 114/78 04/19/2011 10:35 AM PATIENT SCHEDULER Pulse - - Temperature 37.1 ??C (98.7 ??F) 04/19/2011 10:[address] Respiratory Rate - - Oxygen Saturation - - Inhaled Oxygen Concentration - - Weight 86.2 kg (190 lb) 11/11/2014 2:58 PM CDT Height 175.3 cm (5' 9 ) 11/11/2014 2:58 PM CDT Body Mass Index 28.06 11/11/2014 2:58 PM CDT Plan of Treatment Not on file Administered Medications Jannie Kong Personal/Family Self 1960 [address] [place] [address]
--- OUTSIDE RECORDS SUMMARY | 2024-03-16 11:05 | XMS_ITS | Encounter Summary ---
Author Organization [facility] Address [address] [place] [address]. [place] [address] [place] [address] Care Team Providers Care Traffic Signal Technician Name Role Phone Monica Lopez MD Primary Care Provider [phone] Zak Bolanos MD Unavailable Unavailabl e Encounter Details Date Type Department Care Team (Late st Contact Info) Description 02/13/2017 Abstract [facility] [address] [place] [address] Zak Bolanos MD Social History Tobacco Use Types Packs/Day Years Used Date Smoking Tobacco: Never Comments Unknown Sex and Gender Information Value Date Recorded Sex Assigned at Not on file Legal Sex Female 10:54 PM SALES AND SERVICE AGENT Gender Identity Not on file Sexual Orientation Not on file 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
--- OUTSIDE RECORDS SUMMARY | 2024-03-16 11:05 | XMS_ITS | Encounter Summary ---
Author Organization [facility] Address [address] [place] [address] Phone Care Team Providers Care County Director Welfare Name Role Phone Monica Lopez MD Primary Care Provider + [phone] Monica Lopez MD Primary Care Provider + [phone] Adolfo Alfaro MD Primary Care Provider Monica Lopez MD Primary Care Provider + [phone] Adolfo Alfaro MD Primary Care Provider Monica Lopez MD Primary Care Provider + [phone] Betsy Truong MD Unavailable Radha Allison MD Unavailable [phone] Suyapa Diaz PhD Unavailable [phone] Huan Nelson MD Unavailable [phone] Heavenly Holm HEEL WASHER STRINGING MACHINE OPERATOR Unavailable [phone] Meir Marin MD Unavailable [phone] Encounter Details Date Type Department Care Team (Latest Contact Info) Description 03/11/2017 Orders Only [facility] Scanning, Provider Social History Tobacco Use Types Packs/Day Years Used Date Smoking Tobacco: Never Comments Unknown Sex and Gender Information Value Date Recorded Sex Assigned at Not on file Legal Sex 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 Gender Identity Not on file Sexual Orientation Not on file documented as of this encounter Plan of Treatment Not on file documented as of this encounter Procedures Procedure Name Priority Date/Time Associated Diagnosis Comments CARDIOLOGY DOCUMENT SCAN 03/11/2017 documented in this encounter Results * SCAN - CARDIOLOGY (03/11/2017) Anatomical Region Laterality Modality Other us Provider Scanning CV CARDIAC SERVICES PROCEDURES Final Result documented in this encounter Visit Diagnoses Not on filedocumented in this encounter Care Teams County Director Welfare Relationship Specialty Start Date End Date Monica Lopez MD [address] [place] [address] PCP - General 03/07/17 03/28/17 Monica Lopez MD [address] [place] [address] PCP - General 03/29/17 03/31/17 Adolfo Alfaro MD [address] [facility] [address] [place] [address] PCP - General 04/01/17 04/03/17 Monica Lopez MD [address] [place] [address] PCP - General 04/04/17 04/16/17 Adolfo Alfaro MD [address] [facility] [address] [place] [address] PCP - General 04/17/17 04/29/17 Monica Lopez MD [address] [place] [address] PCP - General 04/30/17 Betsy Truong MD [address] [place] [address] Radiation Oncologist Radiation Oncology 09/09/17 Radha Allison MD [address] [place] [address] Surgeon Surgical Oncology 09/09/17 01/01/22 Suyapa Diaz, PhD [address] [place] [address] Nurse Practitioner Radiation Oncology 09/09/17 Huan Nelson MD [address] [place] [address] Consulting Physician Otolaryngology 10/31/20 Heavenly Holm NP [address] DIV IM MEDICAL ONCOLOGY, [address] [place] [address] Nurse Practitioner Medical Oncology 01/02/22 Meir Marin MD [address] DIV IM MEDICAL ONCOLOGY, [address] [place] [address] Surgeon Thoracic Surgery 01/01/23 documented as of this encounter
--- OUTSIDE RECORDS SUMMARY | 2024-03-16 11:05 | XMS_ITS | Encounter Summary ---
Author Organization [facility] Address [address] [place] [address] Care Team Providers Care Pocket And Pulley Machine Operator Name Role Phone Unavailable Primary Care Provider Unavailabl e Encounter Details Date Type Department Care Team (Late st Contact Info) Description 09/09/2019 Lab Requisition [facility] Care D[facility] Lab [address] [place] [address] [place] [address] [address] [place] [address] Social History Tobacco Use Types Packs/Day Years [...] Procedure Name Priority Date/Time Associated Diagnosis Comments DERMATOPATHOLOGY Routine 09/08/2019 12:0 0 AM CDT documented in this encounter Results * DERMATOPATHOLOGY (09/08/2019 12:00 AM CDT) Case Report Dermatopathology Report ? Case: [id number] ? Authorizing Provider: ??Daniel Cleaning MD ? Collected: ? 09/08/2019 12:00 AM ? Ordering Location: ? [facility] ?Received: ?09/09/2019 09:59 AM ? [...] of a non-oriented ellipse of skin measuring [id number]. The epidermal surface is unremarkable. The margin [...] characteristic determined by the Dermatopathology Laboratory at [facility], directed by Dr. Prosper Blevins. These tests need not be, and therefore are not, approved by the [place] Food and Drug Administration. The tests are used for clinical purposes. Billing Codes Specimen Charges Stain Charges 12981 1 0 5:14 PM CDT DERMATOPATHOLOGY LABORATORY Embedded Images 0 5:14 PM CDT DERMATOPATHOLOGY LABORATORY Pathology/Cytolog y TISSUE SPECIMEN FROM SKIN / Unknown 09/08/2019 09/09/2019 9:59 AM CDT Daniel Cleaning MD LAB - PATHOLOGY/CYTO LOGY ORDERABLES DERMATOPATHOLOGY LABORATORY [facility] - Department of Dermatology Cold Header Operator [place]/[address] [phone] documented in this encounter Visit Diagnoses Not on filedocumented in this encounter
--- OUTSIDE RECORDS SUMMARY | 2024-03-16 11:05 | XMS_ITS | Encounter Summary ---
Author Organization [facility] Address [address] [place] [address] Care Team Providers Care Field Operations Supervisor Name Role Phone Unavailable Primary Care Provider Unavailabl e Encounter Details Date Type Department Care Team (Late st Contact Info) Description 11/17/2014 Therapy Visit [facility] [address] [place] [address] Xiomara Samano MD [address] [place] [address] Social History Tobacco Use Types Packs/Day Years [...]
--- OUTSIDE RECORDS SUMMARY | 2024-03-16 11:05 | XMS_ITS | Referral Summary ---
Author Organization [facility] 2 Address [address] [place] [address] Care Team Providers Care Screen Tender Name Role Phone Monica Lopez MD Primary Care Provider [phone] Betsy Truong MD Unavailable Suyapa Diaz PhD Unavailable [phone] Huan Nelson MD Unavailable [phone] Heavenly Holm NP Unavailable [phone] Meir Marin MD Unavailable Encounters Date Type Department Care Team Description 03/09/2024 Telephone [facility] Gasteroenterology [facility] 12th [place] [address] [place] [address] Shannan Lopez, VARSHA 02/26/2024 Orders Only [facility] GASTROENTEROLOGY Scanning, Provider 02/25/2024 Telephone [facility] Gastroenterology [facility] [address]th [place] [address] [place] [address] Leticia Ridley, SANTY 02/25/2024 Orders Only [facility] Gastroenterology [facility] [address]th [place] [address] [place] [address] Leticia Ridley, RN Elevated liver enzymes 02/20/2024 2:15 PM INVESTIGATION OFFICER Lab [facility] [address] [place] [address] Elevated liver enzymes 02/20/2024 11:45 AM INVESTIGATION OFFICER Procedure visit [facility] Gastroenterology [address] [facility] [address]th [place] [address] [place] [address] Elevated liver enzymes 02/20/2024 11:00 AM INVESTIGATION OFFICER Office Visit [facility] Gastroenterology [address] [facility] [address]th [place] [address] [place] [address] Shannan Lopez NP Elevated liver enzymes (Primary Dx); Class 1 obesity with body mass index (BMI) of 31.0 to 31.9 in adult, unspecified obesity type, unspecified whether serious comorbidity present 01/07/2024 11:00 AM INVESTIGATION OFFICER Office Visit [facility] Radiation Oncology [facility] [place] [address] Dolly Rosa NP Encounter for follow-up surveillance of breast cancer from Last 3 Months Allergies Active Allergy Reactions Criticality Noted Date Comments Grass Pollen Rhinitis Low 04/03/2016 Penicillins Rash Medium 03/29/2011 High school; penicillin at time of having [place] Ragweed Rhinitis,Sneezing Low 04/03/2016 Tree And Shrub [...] 02/20/2024 Assessment & Plan (02/20/2024 12:05 PM INVESTIGATION OFFICER): Patient with elevated liver tests including elevated [...] 02/20/2024 Assessment & Plan (02/20/2024 12:07 PM INVESTIGATION OFFICER): We discussed the importance of weight loss. She will work on eating healthier and increasing exercise. She should avoid alcohol use. Unable to get GLP1 as she is not diabetic. Will check A1C to see if this has changed. 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 08/06/2017 Cancer Staging:Pathologic stage from 05/01/2017:Stage 0(pTis (DCIS), pN0, cM0, ER: Positive, AK: Positive, HER2: Not Assessed) - Signed by Suyapa Diaz, PhD on 09/09/2017 Clinical: Unsigned Immunizations Name Administration Dates Next Due Influenza, Quadrivalent, Split, Intramuscular ,11/13/2013 Influenza, Quadrivalent, Spl it, Preservative Free, Intramuscular 11/14/2018,11/27/2017 Influenza, Trivalent, IM (MDV) 12/17/2012,2012 Influenza, Trivalent, Preservative Free, Intramu scular 10/15/2014 Moderna SARS-CoV-2 Monovalent Vaccination (12+ Y RS) 03/12/2020,02/13/2020 Social History Tobacco Use Types Packs/Day Years [...] on file Legal Sex Female 1:22 PM INVESTIGATION OFFICER Gender Identity Not on file Sexual Orientation Not on file Last Filed Vital Signs Vital Sign Reading Time Taken Comments Blood Pressure 138/80 02/20/2024 10:41 AM INVESTIGATION OFFICER Pulse 82 02/20/2024 10:41 AM INVESTIGATION OFFICER Temperature 36.7 ??C (98 ??F) 02/20/2024 10:41 AM INVESTIGATION OFFICER Respiratory Rate 18 11/26/2023 9:13 AM CDT Oxygen Saturation 99% 11/26/2023 9:13 AM CDT Inhaled Oxygen Concentration - - Weight 90.7 kg (200 lb) 02/20/2024 10:41 AM INVESTIGATION OFFICER Height 170.2 cm (5' 7 ) 02/20/2024 10:41 AM INVESTIGATION OFFICER Body Mass Index 31.32 02/20/2024 10:41 AM INVESTIGATION OFFICER Plan of Treatment Not on file Medical Devices Implanted Type Area Maintainer Plant Device Identifier Shelf Expiration Date Model / Serial / Lot Rt Great Toe Ortho Instrumentation Right: Toes Procedures Procedure Name Priority Date/Time Associated Diagnosis Comments SCAN - LABS 02/26/2024 REGINALD QUALITATIVE WITH REFLEX TO REGINALD QUANTITATIVE Routine 02/20/2024 12:56 PM INVESTIGATION OFFICER Elevated liver enzymes MITOCHONDRIAL ANTIBODIES, QUALITATIVE Routine 02/20/2024 12:56 PM INVESTIGATION OFFICER Elevated liver enzymes SMOOTH MUSCLE ANTIBODY, QUALITATIVE Routine 02/20/2024 12:56 PM INVESTIGATION OFFICER Elevated liver enzymes HEPATITIS A ANTIBODY, IGM Routine 02/20/2024 12:56 PM INVESTIGATION OFFICER Elevated liver enzymes HEPATITIS A ANTIBODY, TOTAL Routine 02/20/2024 12:56 PM INVESTIGATION OFFICER Elevated liver enzymes HEPATITIS B CORE ANTIBODY, TOTAL Routine 02/20/2024 12:56 PM INVESTIGATION OFFICER Elevated liver enzymes HEPATITIS B SURFACE ANTIGEN Routine 02/20/2024 12:56 PM INVESTIGATION OFFICER Elevated liver enzymes DIFFERENTIAL AUTO Routine 02/20/2024 12: 41 PM INVESTIGATION OFFICER Elevated liver enzymes CBC WITH AUTO DIFFERENTIAL Routine 02/20/2024 12:41 PM INVESTIGATION OFFICER Elevated liver enzymes PROTIME-INR Routine 02/20/2024 12:41 PM INVESTIGATION OFFICER Elevated liver enzymes HEMOGLOBIN A1C Routine 02/20/2024 12:41 PM INVESTIGATION OFFICER Elevated liver enzymes EGFR Routine 02/20/2024 12:31 PM INVESTIGATION OFFICER Elevated liver enzymes [id number] Routine 02/20/2024 1 2:31 PM INVESTIGATION OFFICER Elevated liver enzymes COMPREHENSIVE METABOLIC PANEL Routine 02/20/2024 12:31 PM INVESTIGATION OFFICER Elevated liver enzymes FERRITIN Routine 02/20/2024 12:31 PM INVESTIGATION OFFICER Elevated liver enzymes IRON PROFILE W/ IBC Routine 02/20/2024 1 2:31 PM INVESTIGATION OFFICER Elevated liver enzymes LIPID PANEL Routine 02/20/2024 12:31 PM INVESTIGATION OFFICER Elevated liver enzymes BILIRUBIN, DIRECT Routine 02/20/2024 12: 31 PM INVESTIGATION OFFICER Elevated liver enzymes TSH Routine 02/20/2024 12:31 PM INVESTIGATION OFFICER Elevated liver enzymes LIVER ELASTOGRAPHY W/O IMAGING W/I&R Routine 02/20/2024 11:38 AM INVESTIGATION OFFICER Elevated liver enzymes SCREENING MAMMOGRAM BILATERAL W SATHISH Schedule Routine, Read Routine (OP Routine) 03/22/2023 10:01 AM INVESTIGATION OFFICER Intraductal carcinoma in situ of left breast Encounter for follow-up surveillance of breast cancer from Last 3 Months or Most Recently Relevant to Health Maintenance Results * SCAN - LABS (02/26/2024) Provider Scanning Final Result * REGINALD ab ql w/rflx to REGINALD qn (02/20/2024 12:56 PM INVESTIGATION OFFICER) REGINALD Negative Comment: Interpretive Data Normal range [...] on 2019. Blood 02/20/2024 12:5 6 PM INVESTIGATION OFFICER 02/20/2024 1:17 PM INVESTIGATION OFFICER Shannan Lopez NP LAB BLOOD ORDERABLES Fin al Result Performing Organization Address [facility] Co de Phone Number [facility] [place] [address] * Smooth muscle antibody, qualitative (02/20/2024 12:56 PM INVESTIGATION OFFICER) Pathologist [facility] Anti-smooth muscle Negative Negative Blood 02/20/2024 12:5 6 PM INVESTIGATION OFFICER 02/20/2024 1:17 PM INVESTIGATION OFFICER Shannan Lopez NP LAB BLOOD ORDERABLES Fin al Result Performing Organization Address [facility] Co de Phone Number [facility] [place] [address] * Mitochondrial antibodies, qualitative (02/20/2024 12:56 PM INVESTIGATION OFFICER) Anti-mitochond rial Negative Negative Blood 02/20/2024 12:5 6 PM INVESTIGATION OFFICER 02/20/2024 1:17 PM INVESTIGATION OFFICER Shannan Lopez NP LAB BLOOD ORDERABLES Fin al Result Performing Organization Address City/[facility] Co de Phone Number [facility] [place] [address] * Hepatitis A antibody, IgM Blood (02/20/2024 12:56 PM INVESTIGATION OFFICER) Hep A IgM Nonreactive Nonreactive Blood 02/20/2024 12:5 6 PM INVESTIGATION OFFICER 02/20/2024 1:17 PM INVESTIGATION OFFICER Shannan Lopez NP LAB MICROBIOLOGY - GENER AL ORDERABLES Final Result Performing Organization Address [facility] de Phone Number [facility] [place] [address] * Hepatitis A antibody, total Blood (02/20/2024 12:56 PM INVESTIGATION OFFICER) Hep A total Nonreactive Nonreactive Blood 02/20/2024 12:5 6 PM INVESTIGATION OFFICER 02/20/2024 1:17 PM INVESTIGATION OFFICER Shannan Lopez NP LAB MICROBIOLOGY - GENER AL ORDERABLES Final Result Performing Organization Address [facility] de Phone Number [facility] [place] [address] * Hepatitis B core antibody, total Blood (02/20/2024 12:56 PM INVESTIGATION OFFICER) Hep B core IgG/IgM Nonreactive Nonreactive Blood 02/20/2024 12:5 6 PM INVESTIGATION OFFICER 02/20/2024 1:17 PM INVESTIGATION OFFICER Shannan Lopez NP LAB MICROBIOLOGY - GENER AL ORDERABLES Final Result Performing Organization Address [facility] Co de Phone Number [facility] Department [place] [address] * Hepatitis B Surface Antigen Blood (02/20/2024 12:56 PM INVESTIGATION OFFICER) Pathologist [facility] HepBsAg Nonreactive Nonreactive Blood 02/20/2024 12:5 6 PM INVESTIGATION OFFICER 02/20/2024 1:17 PM INVESTIGATION OFFICER Shannan Lopez NP LAB MICROBIOLOGY - GENER AL ORDERABLES Final Result [facility] Department [place] [address] * Differential, auto (02/20/2024 12:41 PM INVESTIGATION OFFICER) Pathologist [facility] Neutrophil abs 3.3 1.5 - 6.5 K/cumm [...] on 2017. Imm gran pct 0.2 % [facility] Comment: Interpretive Data Percent cell count reference ranges are not reported, since discordance with absolute values may lead to misinterpretation of CBC data. Current Interpretive Data was last revised on 2017. Lymphocyte pct 27.7 % [facility] Comment: Interpretive Data Percent cell count reference ranges are not reported, since discordance with absolute values may lead to misinterpretation of CBC data. Current Interpretive Data was last revised on 2017. Monocyte pct 9.4 % [facility] Comment: Interpretive Data Percent cell count reference ranges are not reported, since discordance with absolute values may lead to misinterpretation of CBC data. Current Interpretive Data was last revised on 2017. Eosinophil pct 3.0 % [facility] Comment: Interpretive Data Percent cell count reference ranges are not reported, since discordance with absolute values may lead to misinterpretation of CBC data. Current Interpretive Data was last revised on 2017. Basophil pct 0.7 % [facility] Comment: Interpretive Data Percent cell count reference ranges are not reported, since discordance with absolute values may lead to misinterpretation of CBC data. Current Interpretive Data was last revised on 2017. Blood 02/20/2024 12:4 1 PM INVESTIGATION OFFICER 02/20/2024 1:18 PM INVESTIGATION OFFICER Shannan Lopez PAYER SPECIALIST LAB BLOOD ORDERABLES Fin al Result [facility] Department [place] [address] * (ABNORMAL) CBC with auto differential (02/20/2024 12:41 PM INVESTIGATION OFFICER) WBC 5.6 3.8 - 9.9 K/cumm Hgb 15.5 11.9 - 15.5 g/dL [facility] Hct 46.0(H) 35.6 - 45.5 % [facility] Plt 210 150 - 400 K/cumm [facility] Blood 02/20/2024 12:4 1 PM INVESTIGATION OFFICER 02/20/2024 1:18 PM INVESTIGATION OFFICER Result [facility] Shannan Lopez PAYER SPECIALIST LAB BLOOD ORDERABLES Fin al Result Performing Organization Address [facility] de Phone Number [facility] [place] [address] * Protime-INR (02/20/2024 12:41 PM INVESTIGATION OFFICER) Pathologist [facility] PT 12.3 9.7 - 13.0 sec INR 1.14 0.90 - 1.20 [facility] Comment: Interpretive data Oral anticoagulant therapeutic ranges: Venous thromboembolism prophylaxis or treatment: 2.0-3.0 CARDIOLOGY Standard range: 2.0-3.0 High-intensity range: 2.5-3.5 Refer to indication-specific guidelines for appropriate target ranges for prosthetic heart valve replacement. Current interpretive data was last revised on 2019. Blood 02/20/2024 12:4 1 PM INVESTIGATION OFFICER 02/20/2024 1:18 PM INVESTIGATION OFFICER Result [facility] Shannan Lopez NP LAB BLOOD ORDERABLES Fin al Result Performing Organization Address [facility] de Phone Number [facility] [place] [address] * (ABNORMAL) Hemoglobin A1c (02/20/2024 12:41 PM INVESTIGATION OFFICER) Pathologist [facility] Hgb A1C 5.9(H) 4.0 - 5.6 % Estimated Average Glucose 123 mg/dL [facility] Comment: The ADA recommends reporting an estimated Average Glucose (eAG) with all Hemoglobin A1c results using the equation derived from a study of 507 normal and diabetic adults. ??Minority populations were underrepresented and children were not included. ?? (Diabetes Care 2020; 43(S1): S66-S76). ??The eAG is not equivalent to a fasting glucose. Blood 02/20/2024 12:4 1 PM INVESTIGATION OFFICER 02/20/2024 1:18 PM INVESTIGATION OFFICER us Shannan Lopez PAYER SPECIALIST LAB BLOOD ORDERABLES Fin al Result Performing Organization Address [facility] Co de Phone Number [facility] Department [place] [address] * eGFR (02/20/2024 12:31 PM INVESTIGATION OFFICER) eGFR 90 >=60 mL/min/1. 73 m2 Comment: [...] reviewed 2020. Blood 02/20/2024 12:3 1 PM INVESTIGATION OFFICER 02/20/2024 1:16 PM INVESTIGATION OFFICER Shannan Lopez PAYER SPECIALIST LAB BLOOD ORDERABLES Fin al Result Performing Organization Address [facility] Co de Phone Number [facility] Department [place] [address] * (ABNORMAL) Iron profile w/ IBC (02/20/2024 12:31 PM INVESTIGATION OFFICER) Iron 186(H) 35 - 145 mcg/dL TIBC 301 250 - 400 mcg/dL [facility] Transferrin saturation 62(H) 20 - 50 % [facility] Blood 02/20/2024 12:3 1 PM INVESTIGATION OFFICER 02/20/2024 1:16 PM INVESTIGATION OFFICER Shannan Lopez PAYER SPECIALIST LAB BLOOD ORDERABLES Fin al Result Performing Organization Address City/[facility]/[place] [address] * [id number] (02/20/2024 12:31 PM INVESTIGATION OFFICER) Pathologist [facility] alpha-1 antitrypsin 136 90 - 200 mg/dL Blood 02/20/2024 12:3 1 PM INVESTIGATION OFFICER 02/20/2024 1:16 PM INVESTIGATION OFFICER Shannan Lopez PAYER SPECIALIST LAB BLOOD ORDERABLES Fin al Result Performing Organization Address [facility] Co de Phone Number [facility] Department [place] [address] * TSH (02/20/2024 12:31 PM INVESTIGATION OFFICER) Pathologist [facility] Thyroid Stimulating Hormone 1.53 0.30 - 4.20 mcIUnit/mL Blood 02/20/2024 12:3 1 PM INVESTIGATION OFFICER 02/20/2024 1:16 PM INVESTIGATION OFFICER Shannan Lopez PAYER SPECIALIST LAB BLOOD ORDERABLES Fin al Result Performing Organization Address [facility] Co de Phone Number [facility] [place] [address] * (ABNORMAL) Ferritin (02/20/2024 12:31 PM INVESTIGATION OFFICER) Ferritin 274(H) 13 - 150 ng/mL Blood 02/20/2024 12:3 1 PM INVESTIGATION OFFICER 02/20/2024 1:16 PM INVESTIGATION OFFICER Shannan Lopez PAYER SPECIALIST LAB BLOOD ORDERABLES Fin al Result Performing Organization Address [facility] de Phone Number [facility] Department [place] [address] * Bilirubin, direct (02/20/2024 12:31 PM INVESTIGATION OFFICER) Bilirubin, direct 0.2 0.1 - 0.3 mg/dL Blood 02/20/2024 12:3 1 PM INVESTIGATION OFFICER 02/20/2024 1:16 PM INVESTIGATION OFFICER Shannan Lopez NP LAB BLOOD ORDERABLES Fin al Result Performing Organization Address [facility] de Phone Number [facility] Department [place] [address] * (ABNORMAL) Lipid panel (02/20/2024 12:31 PM INVESTIGATION OFFICER) Pathologist [facility] Cholesterol 250(H) 30 - 199 mg/dL Comment: [...] revised on 2017. Triglycerides 282(H) <=149 mg/dL [facility] Comment: Interpretive Data Ages < or = [...] revised on 2017. HDL 54 >=40 mg/dL [facility] Comment: Interpretive Data Ages < or = [...] on 2017. LDL, calculated 145(H) <=129 mg/dL [facility] Comment: Interpretive Data Ages < or = [...] on 2023. Non-HDL Cholesterol 196 mg/dL [facility] Comment: Interpretive Data Ages < or = [...] last revised on 2017. [facility]/HDL [facility] Blood 02/20/2024 12:3 1 PM INVESTIGATION OFFICER 02/20/2024 1:16 PM INVESTIGATION OFFICER us Shannan Lopez NP LAB BLOOD ORDERABLES Fin al Result [facility] Department [place] [address] * (ABNORMAL) Comprehensive metabolic panel (02/20/2024 12:31 PM INVESTIGATION OFFICER) Sodium 139 135 - 145 mmol/L Potassium, pl 4.2 3.3 - 4.9 mmol/L [facility] Chloride 105 97 - 110 mmol/L [facility] CO2 26 22 - 32 mmol/L [facility] Anion gap 8 2 - 15 mmol/L [facility] BUN 21 6 - 25 mg/dL [facility] Creatinine 0.74 0.60 - 1.10 mg/dL [facility] Glucose 98 70 - 199 mg/dL [facility] [...] Alk phos 85 40 - 130 Units/L [facility] ALT 41 7 - 45 Units/L [facility] AST 40 10 - 45 Units/L [facility] Blood 02/20/2024 12:3 1 PM INVESTIGATION OFFICER 02/20/2024 1:16 PM INVESTIGATION OFFICER us Shannan Lopez NP LAB BLOOD ORDERABLES Fin al Result [facility] Department [place] [address] * Liver Elastography w/o Imaging W/I&[facility] (All Locations) (02/20/2024 11:38 AM INVESTIGATION OFFICER) Anatomical Region Laterality Modality Other Shannan Lopez NP GI PROCEDURE ORDERABLES Final Result * Screening Mammogram Bilateral W Sathish (03/22/2023 10:01 AM INVESTIGATION OFFICER) Anatomical Region Laterality Modality Breast Bilateral Mammography Narrative 03/26/2023 1:13 PM INVESTIGATION OFFICER Mammogram Technique: Bilateral Digital Breast Tomosynthesis, Bilateral C-view 2D Screening mammogram. ??Views obtained: ??bilateral craniocaudal and bilateral mediolateral oblique. ??Computer Aided Detection was performed. Mammogram Findings: The present examination has been compared to prior imaging studies performed at [facility] on 03/01/2020, 03/17/2021 and 03/16/2022. There are [...] compared to prior imaging studies performed at [facility] on 03/01/2020, 03/17/2021 and 03/16/2022. There are [...] Most Recently Relevant to Health Maintenance Insurance [facility] Care Teams Screen Tender Relationship Specialty Start Date End Date Monica Lpoez MD [address], [place] [id number] PCP - General 04/30/17 Betsy Truong MD [id number] [place] [address] Radiation Oncologist Radiation Oncology 09/09/17 Suyapa Diaz, PhD [address] [place] [address] Nurse Practitioner Radiation Oncology 09/09/17 Huan Nelson MD [address] [place] [address] Consulting Physician Otolaryngology 10/31/20 Heavenly Holm NP [address] MEDICAL ONCOLOGY, [address] [place] [address] Nurse Practitioner Medical Oncology 01/02/22 Meri Marin MD [address] [facility], [address] [place] [address] Surgeon Thoracic Surgery 01/01/23
[2024-03-16 11:07] LABS: Influenza A QL RT-PCR Positive (Negative); Influenza B QL RT-PCR Negative (Negative); RSV RNA, RT-PCR Negative (Negative)
[2024-03-16 14:49] LABS: Add Urine Microscopic? YES; Bilirubin Urine 1+ (Negative); Blood Urine Negative (Negative); Color Urine Yellow (Yellow); Glucose Urine UA Negative (Negative); Ketones Urine 3+ (Negative); Leukocyte Esterase Ur Negative (Negative); Nitrate Urine Negative (Negative); Protein Urine Trace (Negative); Specific Grav Ur >= 1.030 (1.010-1.020); Urobilinogen Urine 0.2 mg/dL (0.2-1.0); pH Urine 5.5 (5.0-8.0)
[2024-03-16 14:50] LABS: Appearance Urine Sl Cloudy (Clear); Bacteria Urine 1+ /hpf; Mucus Urine Few /lpf; RBC Urine None seen /hpf (0-2); Squamous Epithelial Cell Urine Few /hpf (Few); WBC Urine None seen /hpf (0-3)
== END 2024-03-16 10:10 | disposition home or self-care (01) ==
PROVIDERS: PCP Internal Medicine; Visit Provider Internal Medicine
DX: J06.9 Acute upper respiratory infection, unspecified (principal); R11.2 Nausea with vomiting, unspecified; R05.9 Cough, unspecified; R50.9 Fever, unspecified
CPT/HCPCS: 36415; 71046; 80053; 81001; 82150; 83605; 83690; 85027; 87086; 87636; 87637; 87651

== ENCOUNTER 2024-04-24 09:38 | Outpatient (CLI) | payer OTHER, SELFPAY ==
[2024-04-24 09:52] LABS: Add Urine Microscopic? NO; Appearance Urine Clear (Clear); Basophils Absolute Auto 0.04 K/mm3 (0.00-0.10); Basophils Percent Auto 0.8 % (0.0-1.0); Bilirubin Urine Negative (Negative); Blood Urine Negative (Negative); Color Urine Yellow (Yellow); Eosinophils Absolute Auto 0.15 K/mm3 (0.02-0.50); Glucose Urine UA Negative (Negative); Hematocrit 46.2 % (35.0-49.0); Hemoglobin 15.2 g/dL (12.0-15.0); Immature Granulocyte Absolute 0.01 K/mm3 (0.00-0.00); Immature Granulocyte Percent A 0.2 % (0.0-0.0); Ketones Urine Negative (Negative); Leukocyte Esterase Ur Negative LEU/UL (Negative); Lymphocytes Absolute Auto 1.81 K/mm3 (1.10-4.50); Mean Corpuscular HGB Conc 32.9 g/dL (32-36); Mean Corpuscular Hemoglobin 30.8 pg (27.0-31.0); Mean Corpuscular Volume 93.7 fL (78.0-102.0); Mean Platelet Volume 9.1 fl (9.2-11.8); Monocytes Absolute Auto 0.42 K/mm3 (0.10-0.90); Monocytes Percent Auto 8.3 % (2.0-11.0); Neutrophils Percent Auto 51.7 % (50.0-70.0); Nitrate Urine Negative (Negative); Platelet Count Result 202 K/mm3 (150-420); Protein Urine Negative (Negative); Red Blood Count 4.93 M/mm3 (4.20-5.40); Red Cell Distribution Width 13.2 % (11.6-14.4); Specific Grav Ur 1.025 (1.010-1.020); Urobilinogen Urine 0.2 mg/dL (0.2-1.0); pH Urine 5.5 (5.0-8.0)
[2024-04-24 10:07] LABS: Hemoglobin A1C 5.3 % (<5.7)
--- OUTSIDE RECORDS SUMMARY | 2024-04-24 10:12 | XMS_ITS | Clinical Summary ---
Author Organization [facility] Address [facility] [place] [address] Care Team Providers Care Professor Of Pathology Name Role Phone Monica Lopez MD Primary Care Provider [phone] Zak Bolanos MD Unavailable Unavailabl e Allergies Active Allergy Reactions Criticality Noted Date Comments Penicillins Unknown 02/15/2017 Medications rosuvastatin 10 MG tablet Take 10 mg by mouth daily. Active meloxicam 15 MG tablet Take 15 mg by mouth daily. Active ipratropium 0.06 % nasal spray 2 sprays by Nasal route 3 (three) times daily. 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
--- OUTSIDE RECORDS SUMMARY | 2024-04-24 10:12 | XMS_ITS | Encounter Summary ---
Author Organization [facility] Address [facility] [facility] [place] [address] Care Team Providers Care Electronic Train Control Technician Name Role Phone Unavailable Primary Care Provider Unavailabl e Encounter Details Date Type Department Care Team (Late st Contact Info) Description 09/09/2019 Lab Requisition [facility] [address] [facility] [place] [address] [place] [address] [facility] [address] [place] [address] Social History Tobacco Use Types Packs/Day Years [...] 12:00 AM CDT) Case Report Dermatopathology Report Case: [id number] Authorizing Provider: Daniel Cleaning MD Collected: 09/08/2019 12:00 AM Ordering Location: [facility] Received: 09/09/2019 09:59 AM Pathologist: Kavin Blevins MD Specimen: Skin, left upper lid 0 5:14 PM CDT DERMATOPATHOLOGY LABORATORY Final Diagnosis Specimen A. SKIN, left upper lid: DERMAL FIBROSIS (L90.5) (see microscopic description) 0 5:14 PM CDT DERMATOPATHOLOGY LABORATORY Clinical History Lesion uncertain behavior poss scar/fibrosis R/O skin Ca. 0 5:14 PM CDT DERMATOPATHOLOGY LABORATORY Gross Description Specimen A: Received is one formalin filled container labeled with the patient's name and designated left upper lid. The specimen consists of a non-oriented ellipse of skin measuring [id number]. The epidermal surface is unremarkable. The margin [...] characteristic determined by the Dermatopathology Laboratory at [facility], directed by Dr. Prosper Blevins. These tests need not be, and therefore are not, approved by the [place] Food and Drug Administration. The tests are used for clinical purposes. Billing Codes Specimen Charges Stain Charges 27127 1 0 5:14 PM CDT DERMATOPATHOLOGY LABORATORY Embedded Images 0 5:14 PM CDT DERMATOPATHOLOGY LABORATORY Pathology/Cytolog y TISSUE SPECIMEN FROM SKIN / Unknown 09/08/2019 09/09/2019 9:59 AM CDT Daniel Cleaning MD LAB - PATHOLOGY/CYTO LOGY ORDERABLES DERMATOPATHOLOGY LABORATORY [facility] - Department of Dermatology [employer] [address], [facility] [phone] documented in this encounter Visit Diagnoses Not on filedocumented in this encounter
--- OUTSIDE RECORDS SUMMARY | 2024-04-24 10:12 | XMS_ITS | Encounter Summary ---
Author Organization [facility] Address [facility] [place] [address] Care Team Providers Care Mold Yard Worker Name Role Phone Monica Lopez MD Primary Care Provider [phone] Zak Bolanos MD Unavailable Unavailabl e Encounter Details Date Type Department Care Team (Late st Contact Info) Description 02/13/2017 [facility] [address] [place] [id number] Zak Bolanos MD Social History Tobacco Use Types Packs/Day Years Used Date Smoking Tobacco: Never Comments Unknown Sex and Gender Information Value Date Recorded Sex Assigned at Not on file 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 Gender Identity Not on file Sexual Orientation Not on file 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
--- OUTSIDE RECORDS SUMMARY | 2024-04-24 10:12 | XMS_ITS | Clinical Summary ---
Author Organization [facility] 2 Address [address] [facility] [place] [address] Care Team Providers Care Desizing Machine Operator Head End Name Role Phone Monica Lopez MD Primary Care Provider [phone] Betsy Truong MD Unavailable Suyapa Diaz PhD Unavailable [phone] Huan Nelson MD Unavailable [phone] Heavenly Holm REGIONAL COORDINATOR Unavailable [phone] Meir Marin MD Unavailable [phone] Allergies Active Allergy Reactions Criticality Noted Date Comments Grass Pollen Rhinitis Low 04/03/2016 Penicillins Rash Medium 03/29/2011 High school; penicillin at time of having [place] Ragweed Rhinitis,Sneezing Low 04/03/2016 Tree And Shrub Pollen Rhinitis,Sneezing Low 017 Venom-Honey Bee Hives,Itching Medium 10/20/2022 Medications cetirizine (ZyrTEC) 10 mg tabletIndicati ons:Allergic Conjunctivitis ,Allergic Rhinitis Take 1 tablet (10 mg total) by mouth every morning Active rosuvastatin (CRESTOR) 10 mg tabletIndicati ons:hyperlipid emia Take 1 tablet (10 mg total) by mouth nightly 8 Active Toprol XL 25 mg extended release tabletIndicati ons:PVC's Take 1 tablet (25 mg total) by mouth every morning 8 Active meloxicam (MOBIC) 15 mg tabletIndicati ons:Osteoarthr itis Take 1 tablet (15 mg total) by mouth every morning Active magnesium oxide (MAG-OX) 400 mg (241.3 mg elemental magnesium) tabletIndicati ons:hypomagnes emia Take 1 tablet (400 mg total) by mouth 2 (two) times a day Active cholecalcifero l (VITAMIN D-3) 25 mcg (1,000 unit) tabletIndicati ons:Vitamin D Deficiency Take 1 tablet (1,000 Units total) by mouth 4 (four) times a week Active calcium phosphate trib/vit D3 (CITRACAL + D3, CALCIUM PHOS, ORAL)Indicatio ns:supplement Take 1 tablet by mouth every morning Active fluticasone propionate (FLONASE) 50 mcg/actuation nasal sprayIndicatio ns:Allergic Rhinitis Administer 1 spray into each nostril every morning Active sodium chloride (OCEAN) 0.65 % nasal sprayIndicatio ns:Nasal Congestion Administer 1 spray into each nostril as needed for congestion Active EPINEPHrine 0.3 mg/0.3 mL auto-injection syringe 3 Active losartan (COZAAR) 25 mg tablet Active calcium carbonate-melvi min D3 1,250 mg (500 mg elemental)-400 unit tablet 1 tablet(s), Oral, daily with breakfast, 30 tablet(s), Tablet(s), 0 4 04/18/19 25 Discontinu ed(Duplica te order) Active Problems Patient Care Coordination No te [...] 02/20/2024 Assessment & Plan (02/20/2024 12:05 PM PYTHON ARCHITECT): Patient with elevated liver tests including elevated [...] 02/20/2024 Assessment & Plan (02/20/2024 12:07 PM PYTHON ARCHITECT): We discussed the importance of weight loss. She will work on eating healthier and increasing exercise. She should avoid alcohol use. Unable to get GLP1 as she is not diabetic. Will check A1C to see if this has changed. 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 08/06/2017 Cancer Staging:Pathologic stage from 05/01/2017:Stage 0(pTis (DCIS), pN0, cM0, ER: Positive, OH: Positive, HER2: Not Assessed) - Signed by Suyapa Diaz, PhD on 09/09/2017 Clinical: Unsigned Encounters Date Type Department Care Team Description 04/17/2024 12:42 PM PYTHON ARCHITECT - 04/17/2024 11:59 PM PYTHON ARCHITECT Hospital Encounter [facility] - Breast Imaging [address] [place] [address] Intraductal carcinoma in situ of left breast; Encounter for follow-up surveillance of breast cancer; S/P lumpectomy, left breast Discharge Disposition: Discharge to home or self care 04/17/2024 12:00 PM PYTHON ARCHITECT Office Visit [facility] [address] [facility] [facility] [address] Floor 8 [place] [address] Heavenly Holm, REGIONAL COORDINATOR Intraductal carcinoma in situ of left breast; Encounter for follow-up surveillance of breast cancer; S/P lumpectomy, left breast 04/17/2024 Results Follow-Up [facility] [address] [facility] Floor [address] [place] [address] Heavenly Holm NP 03/09/2024 Telephone [facility] [address] [place] [address] [place] [address] [place] [address] Shannan Lopez NP 02/26/2024 Orders Only IM GASTROENTEROLOGY Scanning, Provider 02/25/2024 Telephone [facility] [address] [place] [address] [place] [address] [place] [address] Leticia Ridley, SANTY 02/25/2024 Orders Only [facility] [address] [place] [address] [place] [address] [place] [address] Leticia Ridley, SANTY Elevated liver enzymes 02/20/2024 2:15 PM PYTHON ARCHITECT Lab [facility] ([facility]) [address] [place] [phone] Elevated liver enzymes 02/20/2024 11:45 AM PYTHON ARCHITECT Procedure visit [facility] [address] [place] [address] [place] [address] Elevated liver enzymes 02/20/2024 11:00 AM PYTHON ARCHITECT Office Visit [facility] [address] [place] [address] [place] [address] [place] [address] Shannan Lopez NP Elevated liver enzymes (Primary Dx); Class 1 obesity with body mass index (BMI) of 31.0 to 31.9 in adult, unspecified obesity type, unspecified whether serious comorbidity present from Last 3 Months Immunizations Immunization Administration Dates Next Due Influenza, Quadrivalent, Split, Intramuscular ,11/13/2013 Influenza, Quadrivalent, Spl it, Preservative Free, Intramuscular 11/14/2018,11/27/2017 Influenza, Trivalent, IM (MDV) 12/17/2012,2012 Influenza, Trivalent, Preservative Free, Intramu scular 10/15/2014 Moderna SARS-CoV-2 Monovalent Vaccination (12+ Y RS) 03/12/2020,02/13/2020 Surgical History Surgery Date Site/Laterality Comments [place] NEUROPLASTY &/TRANSPOS MEDIAN NRV CARPAL TUNNE 02/12/2012 - 02/10/2013 Bilateral Neuroplasty Median Nerve At Carpal Tunnel - (Added by TW Conv) 2012 right, 2014 left FOOT SURGERY Foot Surgery - Right [...] on file Legal Sex Female 1:22 PM PYTHON ARCHITECT Gender Identity Not on file Sexual Orientation Not on file Obstetrics History Last Filed Vital Signs Vital Sign Reading Time Taken Comments Blood Pressure 125/80 04/17/2024 11:48 AM PYTHON ARCHITECT Pulse 76 04/17/2024 11:48 AM PYTHON ARCHITECT Temperature 36.7 C (98.1 F) 04/17/2024 11:48 AM PYTHON ARCHITECT Respiratory Rate 18 04/17/2024 11:4 8 AM PYTHON ARCHITECT Oxygen Saturation 97% 04/17/2024 11: 48 AM PYTHON ARCHITECT Inhaled Oxygen Concentration - - Weight 86.1 kg (189 lb 12.8 oz) 025 11:48 AM PYTHON ARCHITECT Height 171.5 cm (5' 7.52 ) 04/17/2024 1 1:48 AM PYTHON ARCHITECT Body Mass Index 29.27 04/17/2024 11:48 AM PYTHON ARCHITECT Plan of Treatment Health Maintenance Due Date Last Done Comments Cervical Cancer Screening 1960 Colon Cancer Screening-Colonoscopy 1960 Depression Screening 1960 Hepatitis C Screening 1960 DTaP/Tdap/Td Vaccine (1 - Tdap) 02/04/1971 Hepatitis B Screening 02/04/1978 Regular Well Visit/Exam 18-64 02/04/1978 Pneumococcal vaccine <65 (1 of 2 - PCV) 02/04/1979 Zoster Vaccine (1 of 2) 02/04/2010 Covid-19 Vaccine (3 - 2023-2 5 season) 2023 03/12/2020, 02/13/2020 Influenza Vaccine (#1) 2023 9, 11/27/2017, 02/06/2016, Additional history exists Breast Cancer Screening-Mammogram 04/17/2025 04/17/2024, 03/22/2023, 03/16/2022, Additional history exists Medical Devices Implanted Type Area Director Of Restaurants Device Identifier Shelf Expiration Date Model / Serial / Lot Rt Great Toe Ortho Instrumentation Right: Toes Procedures Procedure Name Priority Date/Time Associated Diagnosis Comments SCREENING MAMMOGRAM BILATERAL W SATHISH Schedule Routine, Read Routine (OP Routine) 04/17/2024 1:17 PM PYTHON ARCHITECT Intraductal carcinoma in situ of left breast Encounter for follow-up surveillance of breast cancer S/P lumpectomy, left breast SCAN - LABS 02/26/2024 REGINALD QUALITATIVE WITH REFLEX TO REGINALD QUANTITATIVE Routine 02/20/2024 12:56 PM PYTHON ARCHITECT Elevated liver enzymes MITOCHONDRIAL ANTIBODIES, QUALITATIVE Routine 02/20/2024 12:56 PM PYTHON ARCHITECT Elevated liver enzymes SMOOTH MUSCLE ANTIBODY, QUALITATIVE Routine 02/20/2024 12:56 PM PYTHON ARCHITECT Elevated liver enzymes HEPATITIS A ANTIBODY, IGM Routine 02/20/2024 12:56 PM PYTHON ARCHITECT Elevated liver enzymes HEPATITIS A ANTIBODY, TOTAL Routine 02/20/2024 12:56 PM PYTHON ARCHITECT Elevated liver enzymes HEPATITIS B CORE ANTIBODY, TOTAL Routine 02/20/2024 12:56 PM PYTHON ARCHITECT Elevated liver enzymes HEPATITIS B SURFACE ANTIGEN Routine 02/20/2024 12:56 PM PYTHON ARCHITECT Elevated liver enzymes DIFFERENTIAL AUTO Routine 02/20/2024 12: 41 PM PYTHON ARCHITECT Elevated liver enzymes CBC WITH AUTO DIFFERENTIAL Routine 02/20/2024 12:41 PM PYTHON ARCHITECT Elevated liver enzymes PROTIME-INR Routine 02/20/2024 12:41 PM PYTHON ARCHITECT Elevated liver enzymes HEMOGLOBIN A1C Routine 02/20/2024 12:41 PM PYTHON ARCHITECT Elevated liver enzymes EGFR Routine 02/20/2024 12:31 PM PYTHON ARCHITECT Elevated liver enzymes HOONE-0-DYUXUWOYIKI Routine 02/20/2024 1 2:31 PM PYTHON ARCHITECT Elevated liver enzymes COMPREHENSIVE METABOLIC PANEL Routine 02/20/2024 12:31 PM PYTHON ARCHITECT Elevated liver enzymes FERRITIN Routine 02/20/2024 12:31 PM PYTHON ARCHITECT Elevated liver enzymes IRON PROFILE W/ IBC Routine 02/20/2024 1 2:31 PM PYTHON ARCHITECT Elevated liver enzymes LIPID PANEL Routine 02/20/2024 12:31 PM PYTHON ARCHITECT Elevated liver enzymes BILIRUBIN, DIRECT Routine 02/20/2024 12: 31 PM PYTHON ARCHITECT Elevated liver enzymes TSH Routine 02/20/2024 12:31 PM PYTHON ARCHITECT Elevated liver enzymes LIVER ELASTOGRAPHY W/O IMAGING W/I&R Routine 02/20/2024 11:38 AM PYTHON ARCHITECT Elevated liver enzymes from Last 3 Months Results * Screening Mammogram Bilateral W Sathish (04/17/2024 1:17 PM PYTHON ARCHITECT) Anatomical Region Laterality Modality Breast Bilateral Mammography Narrative 04/17/2024 2:39 PM PYTHON ARCHITECT Mammogram Technique: Bilateral Digital Breast Tomosynthesis, Bilateral C-view 2D Screening mammogram. Views obtained: bilateral craniocaudal and bilateral mediolateral oblique. Computer Aided Detection was performed. Mammogram Findings: The present examination has been compared to prior imaging studies performed at [facility] on 03/17/2021, 03/16/2022 and 03/22/2023. There are scattered areas of fibroglandular density. There are post breast conservation therapy changes in the left breast. There is no suspicious abnormality in either breast. Impression: There is no mammographic evidence of malignancy. Annual screening mammography is recommended. OVERALL FINAL ASSESSMENT: BI-RADS CATEGORY 2: Benign. Procedure Note Betzaida Yadav MD - 04/17/2024 Mammogram Technique: Bilateral Digital Breast Tomosynthesis, Bilateral C-view 2D Screening mammogram. Views obtained: bilateral craniocaudal and bilateral mediolateral oblique. Computer Aided Detection was performed. Mammogram Findings: The present examination has been compared to prior imaging studies performed at [facility] on 03/17/2021, 03/16/2022 and 03/22/2023. There are scattered areas of fibroglandular density. There are post breast conservation therapy changes in the left breast. There is no suspicious abnormality in either breast. Impression: There is no mammographic evidence of malignancy. Annual screening mammography is recommended. OVERALL FINAL ASSESSMENT: BI-RADS CATEGORY 2: Benign. Heavenly Holm REGIONAL COORDINATOR IMG MAMMO PROCEDURES Final Resu lt * SCAN - LABS (02/26/2024) Provider Scanning Final Result * REGINALD ab ql w/rflx to REGINALD qn (02/20/2024 12:56 PM PYTHON ARCHITECT) REGINALD Negative Comment: Interpretive Data Normal range [...] age 65 have significantly positive REGINALD results. 5% or less of normal people age 65 or under have significantly positive REGINALD results. Current interpretive data was last revised on 2019. Blood 02/20/2024 12:5 6 PM PYTHON ARCHITECT 02/20/2024 1:17 PM PYTHON ARCHITECT Shannan Lopez NP LAB BLOOD ORDERABLES Fin al Result Performing Organization Address City/[facility] [place] [address] * Smooth muscle antibody, qualitative (02/20/2024 12:56 PM PYTHON ARCHITECT) Anti-smooth muscle Negative Negative Blood 02/20/2024 12:5 6 PM PYTHON ARCHITECT 02/20/2024 1:17 PM PYTHON ARCHITECT Shannan Lopez NP LAB BLOOD ORDERABLES Fin al Result Performing Organization Address [facility] [place] [address] * Mitochondrial antibodies, qualitative (02/20/2024 12:56 PM PYTHON ARCHITECT) Anti-mitochond rial Negative Negative Blood 02/20/2024 12:5 6 PM PYTHON ARCHITECT 02/20/2024 1:17 PM PYTHON ARCHITECT Shannan Lopez NP LAB BLOOD ORDERABLES Fin al Result Performing Organization Address [facility] Co de Phone Number [facility] Department [place] [address] * Hepatitis A antibody, IgM Blood (02/20/2024 12:56 PM PYTHON ARCHITECT) Hep A IgM Nonreactive Nonreactive Blood 02/20/2024 12:5 6 PM PYTHON ARCHITECT 02/20/2024 1:17 PM PYTHON ARCHITECT Shannan Lopez NP LAB MICROBIOLOGY - GENER AL ORDERABLES Final Result Performing Organization Address [facility] Co de Phone Number [facility] [place] [address] * Hepatitis A antibody, total Blood (02/20/2024 12:56 PM PYTHON ARCHITECT) Pathologist [facility] Hep A total Nonreactive Nonreactive Blood 02/20/2024 12:5 6 PM PYTHON ARCHITECT 02/20/2024 1:17 PM PYTHON ARCHITECT Shannan Lopez NP LAB MICROBIOLOGY - GENER AL ORDERABLES Final Result Performing Organization Address [facility] de Phone Number [facility] [place] [address] * Hepatitis B core antibody, total Blood (02/20/2024 12:56 PM PYTHON ARCHITECT) [facility] Hep B core IgG/IgM Nonreactive Nonreactive Blood 02/20/2024 12:5 6 PM PYTHON ARCHITECT 02/20/2024 1:17 PM PYTHON ARCHITECT Shannan Lopez NP LAB MICROBIOLOGY - GENER AL ORDERABLES Final Result Performing Organization Address City/[facility] de Phone Number [facility] [place] [address] * Hepatitis B Surface Antigen Blood (02/20/2024 12:56 PM PYTHON ARCHITECT) [facility] HepBsAg Nonreactive Nonreactive Blood 02/20/2024 12:5 6 PM PYTHON ARCHITECT 02/20/2024 1:17 PM PYTHON ARCHITECT Shannan Lopez NP LAB MICROBIOLOGY - GENER AL ORDERABLES Final Result Performing Organization Address City/[facility] de Phone Number [facility] [place] [address] * Differential, auto (02/20/2024 12:41 PM PYTHON ARCHITECT) [facility] Neutrophil abs 3.3 1.5 - 6.5 K/cumm Imm gran abs 0.0 0.0 - 0.1 K/cumm [facility] Lymphocyte abs 1.6 0.8 - 3.3 K/cumm [facility] Monocyte abs 0.5 0.2 - 0.8 K/cumm [facility] Eosinophil abs 0.2 0.0 - 0.5 K/cumm [facility] Basophil abs 0.0 0.0 - 0.1 K/cumm [facility] Neutrophil pct 59.0 % [facility] Comment: Interpretive Data Percent cell count reference ranges are not reported, since discordance with absolute values may lead to misinterpretation of CBC data. Current Interpretive Data was last revised on 2017. Imm gran pct 0.2 % [facility] Comment: Interpretive Data Percent cell count reference ranges are not reported, since discordance with absolute values may lead to misinterpretation of CBC data. Current Interpretive Data was last revised on 2017. Lymphocyte pct 27.7 % [facility] Comment: Interpretive Data Percent cell count reference ranges are not reported, since discordance with absolute values may lead to misinterpretation of CBC data. Current Interpretive Data was last revised on 2017. Monocyte pct 9.4 % [facility] Comment: Interpretive Data Percent cell count reference ranges are not reported, since discordance with absolute values may lead to misinterpretation of CBC data. Current Interpretive Data was last revised on 2017. Eosinophil pct 3.0 % [facility] Comment: Interpretive Data Percent cell count reference ranges are not reported, since discordance with absolute values may lead to misinterpretation of CBC data. Current Interpretive Data was last revised on 2017. Basophil pct 0.7 % [facility] Comment: Interpretive Data Percent cell count reference ranges are not reported, since discordance with absolute values may lead to misinterpretation of CBC data. Current Interpretive Data was last revised on 2017. Blood 02/20/2024 12:4 1 PM PYTHON ARCHITECT 02/20/2024 1:18 PM PYTHON ARCHITECT us Shannan Lopez NP LAB BLOOD ORDERABLES Fin al Result [facility] Department [place] [address] * (ABNORMAL) CBC with auto differential (02/20/2024 12:41 PM PYTHON ARCHITECT) Pathologist [facility] WBC 5.6 3.8 - 9.9 K/cumm Hgb 15.5 11.9 - 15.5 g/dL [facility] Hct 46.0(H) 35.6 - 45.5 % [facility] Plt 210 150 - 400 K/cumm [facility] MPV 9.4 9.1 - 12.3 fL [facility] RBC 4.93 3.90 - 5.20 M/cumm [facility] MCV 93.3 81.3 - 96.4 fL [facility] MCH 31.4 27.1 - 33.3 pg [facility] MCHC 33.7 32.3 - 35.7 g/dL [facility] RDW CV 13.2 11.1 - 14.9 % [facility] RDW SD 44.9 35.7 - 48.1 fL [facility] NRBC abs 0.00 0.00 - 0.01 K/cumm [facility] Blood 02/20/2024 12:4 1 PM PYTHON ARCHITECT 02/20/2024 1:18 PM PYTHON ARCHITECT Shannan Lopez NP LAB BLOOD ORDERABLES Fin al Result [facility] Department [place] [address] * Protime-INR (02/20/2024 12:41 PM PYTHON ARCHITECT) Pathologist [facility] PT 12.3 9.7 - 13.0 sec INR 1.14 0.90 - 1.20 [facility] Comment: Interpretive data Oral anticoagulant therapeutic ranges: Venous thromboembolism prophylaxis or treatment: 2.0-3.0 CARDIOLOGY Standard range: 2.0-3.0 High-intensity range: 2.5-3.5 Refer to indication-specific guidelines for appropriate target ranges for prosthetic heart valve replacement. Current interpretive data was last revised on 2019. Blood 02/20/2024 12:4 1 PM PYTHON ARCHITECT 02/20/2024 1:18 PM PYTHON ARCHITECT Shannan Lopez NP LAB BLOOD ORDERABLES Fin al Result Performing Organization Address [facility] [place] [address] * (ABNORMAL) Hemoglobin A1c (02/20/2024 12:41 PM PYTHON ARCHITECT) Hgb A1C 5.9(H) 4.0 - 5.6 % Estimated Average Glucose 123 mg/dL [facility] Comment: The ADA recommends reporting an estimated Average Glucose (eAG) with all Hemoglobin A1c results using the equation derived from a study of 507 normal and diabetic adults. Minority populations were underrepresented and children were not included. (Diabetes Care 2020; 43(S1): S66-S76). The eAG is not equivalent to a fasting glucose. Blood 02/20/2024 12:4 1 PM PYTHON ARCHITECT 02/20/2024 1:18 PM PYTHON ARCHITECT Shannan Lopez NP LAB BLOOD ORDERABLES Fin al Result Performing Organization Address [facility] de Phone Number [facility] [place] [address] * eGFR (02/20/2024 12:31 PM PYTHON ARCHITECT) eGFR 90 >=60 mL/min/1. 73 m2 Comment: Interpretive Data Reference Interval Normal >/= 90 mL/min/1.73m2 Mildly decreased* 60 - 89 mL/min/1.73m2 Mildly to moderately decreased 45 - 59 mL/min/1.73m2 Moderately to severely decreased 30 - 44 mL/min/1.73m2 Severely decreased 15 - 29 mL/min/1.73m2 Kidney Failure < 15 mL/min/1.73m2 *Relative to young adult level Estimated glomerular [...] reviewed 2020. Blood 02/20/2024 12:3 1 PM PYTHON ARCHITECT 02/20/2024 1:16 PM PYTHON ARCHITECT Shannan Lopez REGIONAL COORDINATOR LAB BLOOD ORDERABLES Fin al Result Performing Organization Address City/[facility] Co de Phone Number [facility] [place] [address] * (ABNORMAL) Iron profile w/ IBC (02/20/2024 12:31 PM PYTHON ARCHITECT) Iron 186(H) 35 - 145 mcg/dL TIBC 301 250 - 400 mcg/dL [facility] Transferrin saturation 62(H) 20 - 50 % [facility] Blood 02/20/2024 12:3 1 PM PYTHON ARCHITECT 02/20/2024 1:16 PM PYTHON ARCHITECT Shannan Lopez NP LAB BLOOD ORDERABLES Fin al Result Performing Organization Address [facility] Co de Phone Number [facility] [place] [address] * [id number] (02/20/2024 12:31 PM PYTHON ARCHITECT) alpha-1 antitrypsin 136 90 - 200 mg/dL Blood 02/20/2024 12:3 1 PM PYTHON ARCHITECT 02/20/2024 1:16 PM PYTHON ARCHITECT Shannan Lopez NP LAB BLOOD ORDERABLES Fin al Result Performing Organization Address [facility] Co de Phone Number [facility] [place] [address] * TSH (02/20/2024 12:31 PM PYTHON ARCHITECT) Thyroid Stimulating Hormone 1.53 0.30 - 4.20 mcIUnit/mL Blood 02/20/2024 12:3 1 PM PYTHON ARCHITECT 02/20/2024 1:16 PM PYTHON ARCHITECT Shannna Lopez REGIONAL COORDINATOR LAB BLOOD ORDERABLES Fin al Result Performing Organization Address [facility] Co de Phone Number [facility] [place] [address] * (ABNORMAL) Ferritin (02/20/2024 12:31 PM PYTHON ARCHITECT) Pathologist [facility] Ferritin 274(H) 13 - 150 ng/mL Blood 02/20/2024 12:3 1 PM PYTHON ARCHITECT 02/20/2024 1:16 PM PYTHON ARCHITECT Shannan Lopez REGIONAL COORDINATOR LAB BLOOD ORDERABLES Fin al Result Performing Organization Address [facility] de Phone Number [facility] [place] [address] * Bilirubin, direct (02/20/2024 12:31 PM PYTHON ARCHITECT) Pathologist [facility] Bilirubin, direct 0.2 0.1 - 0.3 mg/dL Blood 02/20/2024 12:3 1 PM PYTHON ARCHITECT 02/20/2024 1:16 PM PYTHON ARCHITECT Shannan Lopez REGIONAL COORDINATOR LAB BLOOD ORDERABLES Fin al Result Performing Organization Address [facility] de Phone Number [facility] [place] [address] * (ABNORMAL) Lipid panel (02/20/2024 12:31 PM PYTHON ARCHITECT) Pathologist [facility] Cholesterol 250(H) 30 - 199 mg/dL Comment: Interpretive Data Ages < or = 19 years Acceptable: <170 mg/dL Borderline high: 170-199 mg/dL High: >or= 200 mg/dL Ages > or = 20 years Desirable: <200 mg/dL Borderline high: 200-239 mg/dL High: >or= 240 mg/dL Literature References: 1. Expert Panel on Integrated Guidelines for Cardiovascular Health and Risk Reduction in Children and Adolescents. Pediatrics 2011;128:S213 2. NCEP Expert Panel. Circulation 2004;110:227 Current Interpretive Data was last revised on 2017. Triglycerides 282(H) <=149 mg/dL [facility] Comment: Interpretive Data Ages < or = 9 years Acceptable: <75 mg/dL Borderline high: 75-99 mg/dL High: >or= 100 mg/dL Ages 10 to 20 years Acceptable: <90 mg/dL Borderline high: 90-129 mg/dL High: >or= 130 mg/dL Ages > or = 20 years Desirable: <150 mg/dL Borderline high: 150-199 mg/dL High: 200-499 mg/dL Very high: >or= 499 mg/dL Literature References: 1. Expert Panel on Integrated Guidelines for Cardiovascular Health and Risk Reduction in Children and Adolescents. Pediatrics 2011;128:S213 2. NCEP Expert Panel. Circulation 2004;110:227 Current Interpretive Data was last revised on 2017. HDL 54 >=40 mg/dL [facility] Comment: Interpretive Data Ages < or = 19 years Acceptable: >45 mg/dL Borderline low: 40-45 mg/dL Low: <40 mg/dL Ages > or = 20 years Desirable: >or= 60 mg/dL Low: <40 mg/dL Literature References: 1. Expert Panel on Integrated Guidelines for Cardiovascular Health and Risk Reduction in Children and Adolescents. Pediatrics 2011;128:S213 2. NCEP Expert Panel. Circulation 2004;110:227 Current Interpretive Data was last revised on 2017. LDL, calculated 145(H) <=129 mg/dL [facility] Comment: Interpretive Data Ages < or = 19 years Acceptable: <110 mg/dL Borderline high: 110-129 mg/dL High: >or= 130 mg/dL Ages > or = 20 years Optimal: <100 mg/dL Near optimal: 100-129 mg/dL Borderline high: 130-159 mg/dL High: >160 mg/dL Calculated using the Malcolm LDL-C estimating equation. This equation was implemented on 2023. Prior to this date LDL-C was estimated using the Friedewald equation. Literature References: 1. Expert Panel on Integrated Guidelines for Cardiovascular Health and Risk Reduction in Children and Adolescents. Pediatrics 2011;128:S213 2. NCEP Expert Panel. Circulation 2004;110:227 3. Gold Sosa al. [facility] Cardiol. 2019June 11;5(5):540-548. doi: 10.1001/jamacardio.2020.0013 Current Interpretive Data was last revised on 2023. Non-HDL Cholesterol 196 mg/dL [facility] Comment: Interpretive Data Ages < or = 19 years Acceptable: <120 mg/dL Borderline high: 120-144 mg/dL High: >145 mg/dL Ages > or = 20 years When triglycerides are >200 mg/dL, Non-HDL cholesterol is a secondary target of therapy with treatment goals that are 30 mg/dL greater than the LDL cholesterol target. Literature References: 1. Expert Panel on Integrated Guidelines for Cardiovascular Health and Risk Reduction in Children and Adolescents. Pediatrics 2011;128:S213 2. NCEP Expert Panel. Circulation 2004;110:227 Current Interpretive Data was last revised on 2017. Chol/HDL ratio 5 [facility] Blood 02/20/2024 12:3 1 PM PYTHON ARCHITECT 02/20/2024 1:16 PM PYTHON ARCHITECT Shannan Lopez NP LAB BLOOD ORDERABLES Fin al Result [facility] Department [place] [address] * (ABNORMAL) Comprehensive metabolic panel (02/20/2024 12:31 PM PYTHON ARCHITECT) Sodium 139 135 - 145 mmol/L Potassium, pl 4.2 3.3 - 4.9 mmol/L [facility] Chloride 105 97 - 110 mmol/L [facility] CO2 26 22 - 32 mmol/L [facility] Anion gap 8 2 - 15 mmol/L [facility] BUN 21 6 - 25 mg/dL [facility] Creatinine 0.74 0.60 - 1.10 mg/dL [facility] Glucose 98 70 - 199 mg/dL [facility] Comment: Interpretive Data Fasting glucose >/= 126 mg/dl is diagnostic for diabetes. Fasting is defined as no caloric intake [...] 2022. Calcium 10.1 8.5 - 10.3 mg/dL [facility] Bilirubin, total 1.5(H) 0.1 - 1.2 mg/dL [facility] Protein, pl 7.9 6.5 - 8.5 g/dL [facility] Albumin 4.6 3.5 - 5.0 g/dL [facility] Alk phos 85 40 - 130 Units/L [facility] ALT 41 7 - 45 Units/L [facility] AST 40 10 - 45 Units/L [facility] Blood 02/20/2024 12:3 1 PM PYTHON ARCHITECT 02/20/2024 1:16 PM PYTHON ARCHITECT Shannan Lopez NP LAB BLOOD ORDERABLES Fin al Result [facility] Department [place] [address] * Liver Elastography w/o Imaging [facility] (All Locations) (02/20/2024 11:38 AM PYTHON ARCHITECT) Anatomical Region Laterality Modality Other Shannan Lopez NP GI PROCEDURE ORDERABLES Final Result from Last 3 Months Insurance [facility] Care Teams Desizing Machine Operator Head End Relationship Specialty Start Date End Date Monica Lopez MD [address] [place] [address] PCP - General 04/30/17 Betsy Truong MD [address] [place] [address] Radiation Oncologist Radiation Oncology 09/09/17 Suyapa Diaz, PhD [address] [place] [address] Nurse Practitioner Radiation Oncology 09/09/17 Huan Nelson MD [address] [place] [address] Consulting Physician Otolaryngology 10/31/20 Heavenly Holm REGIONAL COORDINATOR [address] DIV MEDICAL ONCOLOGY, [address] [place] [address] Nurse Practitioner Medical Oncology 01/02/22 Meir Marin MD [address] [facility] IM MEDICAL ONCOLOGY, [address] [place] [address] Surgeon Thoracic Surgery 01/01/23
--- OUTSIDE RECORDS SUMMARY | 2024-04-24 10:12 | XMS_ITS ---
Author Organization [facility] 2 Address [address] [facility] [place] [address] Care Team Providers Care Associate Director Regulatory Affairs Name Role Phone Monica Lopez MD Primary Care Provider + [phone] Betsy Truong MD Unavailable Suyapa Diaz PhD Unavailable [phone] Huan Nelson MD Unavailable [phone] Heavenly Holm MANAGER METAL Unavailable [phone] Meir Marin MD Unavailable Active Problems Patient Care Coordination No te [...] 02/20/2024 Assessment & Plan (02/20/2024 12:05 PM JOURNEYMAN PRESS OPERATOR): Patient with elevated liver tests including elevated [...] 02/20/2024 Assessment & Plan (02/20/2024 12:07 PM JOURNEYMAN PRESS OPERATOR): We discussed the importance of weight loss. She will work on eating healthier and increasing exercise. She should avoid alcohol use. Unable to get GLP1 as she is not diabetic. Will check A1C to see if this has changed. 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 Past Treatment and Therapy Plans No past plan information found. Radiation Treatments * Course [id number] 06/25/2017 - 07/01/2017 Treatment Period Energy Fraction Dose Fractions Total Dose Plans Planned VR LUOQ BRST 06/25/2017 - 07/01/2017 385 10 / 3,850 Reference Points Delivered PTV 3850 06/25/2017 - 07/01/2017 3,850 Lifetime Dose Tracking * Chemical Lifetime Dose Automatic Entry Manual Entr y Fluoro Time 0.217 minutes 0.217 minutes 0 minutes Air kerma at the reference point (Ka,r) 1.128 mGy 1 .128 mGy 0 mGy DLP 1,160 mGycm 1,160 mGycm 0 mGycm
--- OUTSIDE RECORDS SUMMARY | 2024-04-24 10:12 | XMS_ITS | Encounter Summary ---
Author Organization [facility] Address [address] [place] [address] Phone Care Team Providers Care Neurology Professor Name Role Phone Monica Lopez MD Primary Care Provider [phone] Betsy Truong MD Unavailable Suyapa Diaz PhD Unavailable [phone] Huan Nelson MD Unavailable [phone] Heavenly Holm NP Unavailable [phone] Meir Marin MD Unavailable [phone] Encounter Details Date Type Department Care Team (Late st Contact Info) Description 04/17/2024 Results Follow-Up [facility] Oncology [address] [place] [address] Heavenly Holm, GARDENING SUPERVISOR [address] [facility] [address] [place] [address] Social History Tobacco Use Types Packs/Day Years [...] on file Legal Sex 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 ERY WORKER documented in this encounter Plan of Treatment Not on file documented as of this encounter Visit Diagnoses Not on filedocumented in this encounter Care Teams Neurology Professor Relationship Specialty Start Date End Date Monica Lopez MD [address] [place] [address] PCP - General 04/30/17 Betsy Truong MD [address] [place] [address] Radiation Oncologist Radiation Oncology 09/09/17 Suyapa Diaz, PhD [address] [place] [address] Nurse Practitioner Radiation Oncology 09/09/17 Huan Nelson MD [address] [place] [address] Consulting Physician Otolaryngology 10/31/20 Heavenly Holm GARDENING SUPERVISOR [address] DIV IM MEDICAL ONCOLOGY, [address] [place] [address] Nurse Practitioner Medical Oncology 01/02/22 Meir Marin MD [address] [facility] MEDICAL ONCOLOGY, [address] [place] [address] Surgeon Thoracic Surgery 01/01/23 documented as of this encounter
--- OUTSIDE RECORDS SUMMARY | 2024-04-24 10:12 | XMS_ITS | Referral Summary ---
Author Organization [facility] 2 Address [address] [place] [address] Care Team Providers Care Shell Sorter Name Role Phone Monica Lopez MD Primary Care Provider + [phone] Betsy Truong MD Unavailable Suyapa Diaz PhD Unavailable [phone] Huan Nelson MD Unavailable [phone] Heavenly Holm NP Unavailable [phone] Meir Marin MD Unavailable [phone] Encounters Date Type Department Care Team Description 04/17/2024 Results Follow-Up [facility] Oncology [address] [place] [phone] Heavenly Holm, LINE PRODUCTION COOK 04/17/2024 12:42 PM RESIDENTIAL CASE MANAGER - 04/17/2024 11:59 PM RESIDENTIAL CASE MANAGER Hospital Encounter [facility] - Breast Imaging [address] [place] [address] [address] [place] [address] Intraductal carcinoma in situ of left breast; Encounter for follow-up surveillance of breast cancer; S/P lumpectomy, left breast Discharge Disposition: Discharge to home or self care 04/17/2024 12:00 PM RESIDENTIAL CASE MANAGER Office Visit [facility] Oncology [address] [place] [phone] Heavenly Holm, [employer]OOK Intraductal carcinoma in situ of left breast; Encounter for follow-up surveillance of breast cancer; S/P lumpectomy, left breast 03/09/2024 Telephone [facility] Gasteroenterology [address] [facility] Medicine [facility] [place] [address] [place] [address] Shannan Lopez NP 02/26/2024 Orders Only [facility] GASTROENTEROLOGY Scanning, Provider 02/25/2024 Telephone [facility] Gastroenterology [facility]ly [facility] [address] [place] [address] [place] [address] Leticia Ridley, SANTY 02/25/2024 Orders Only [facility] Gastroenterology [address] [place] [address] [place] [address] [place] [address] Leticia Ridley, SANTY Elevated liver enzymes 02/20/2024 2:15 PM RESIDENTIAL CASE MANAGER Lab [facility] Advanced Medicine ([facility]) [address] [place] [phone] Elevated liver enzymes 02/20/2024 11:45 AM RESIDENTIAL CASE MANAGER Procedure visit [facility] Gastroenterology [address] [place] [address] [place] [address] [place] [address] Elevated liver enzymes 02/20/2024 11:00 AM RESIDENTIAL CASE MANAGER Office Visit [facility] Gastroenterology [address] [place] [address] [place] [address] [place] [address] Shannan Lopez NP Elevated liver enzymes (Primary Dx); Class 1 obesity with body mass index (BMI) of 31.0 to 31.9 in adult, unspecified obesity type, unspecified whether serious comorbidity present from Last 3 Months Allergies Active Allergy Reactions Criticality Noted Date Comments Grass Pollen Rhinitis Low 04/03/2016 Penicillins Rash Medium 03/29/2011 High school; penicillin at time of having [place] Ragweed Rhinitis,Sneezing Low 04/03/2016 Tree And Shrub [...] 02/20/2024 Assessment & Plan (02/20/2024 12:05 PM RESIDENTIAL CASE MANAGER): Patient with elevated liver tests including [...] 02/20/2024 Assessment & Plan (02/20/2024 12:07 PM RESIDENTIAL CASE MANAGER): We discussed the importance of weight [...] (09/14/2020): Added automatically from request for surgery [id number] Hypertrophy of inferior nasal turbinate 09/15/19 Overview (09/14/2020): Added automatically from request for surgery [id number] Encounter for monitoring tamoxifen therapy 02/18 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 02/17/2018 Encounter for follow-up surveillance of breast c ancer 09/09/2017 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 08/06/2017 Cancer Staging:Pathologic stage from 05/01/2017:Stage 0(pTis (DCIS), pN0, cM0, ER: Positive, AL: Positive, HER2: Not Assessed) - Signed by Suyapa Diaz, PhD on 09/09/2017 Clinical: Unsigned Immunizations Immunization Administration Dates Next Due Influenza, [...] on file Legal Sex Female 1:22 PM RESIDENTIAL CASE MANAGER Gender Identity Not on file Sexual Orientation Not on file Last Filed Vital Signs Vital Sign Reading Time Taken Comments Blood Pressure 125/80 04/17/2024 11:48 AM RESIDENTIAL CASE MANAGER Pulse 76 04/17/2024 11:48 AM RESIDENTIAL CASE MANAGER Temperature 36.7 C (98.1 F) 04/17/2024 11:48 AM RESIDENTIAL CASE MANAGER Respiratory Rate 18 04/17/2024 11:4 8 AM RESIDENTIAL CASE MANAGER Oxygen Saturation 97% 04/17/2024 11: 48 AM RESIDENTIAL CASE MANAGER Inhaled Oxygen Concentration - - Weight 86.1 kg (189 lb 12.8 oz) 025 11:48 AM RESIDENTIAL CASE MANAGER Height 171.5 cm (5' 7.52 ) 04/17/2024 1 1:48 AM RESIDENTIAL CASE MANAGER Body Mass Index 29.27 04/17/2024 11:48 AM RESIDENTIAL CASE MANAGER Plan of Treatment Not on file Medical Devices Implanted Type Area Rate Supervisor Device Identifier Shelf Expiration Date Model / Serial / Lot Rt Great Toe Ortho Instrumentation Right: Toes Procedures Procedure Name Priority Date/Time Associated Diagnosis Comments SCREENING MAMMOGRAM BILATERAL W SATHISH Schedule Routine, Read Routine (OP Routine) 04/17/2024 1:17 PM RESIDENTIAL CASE MANAGER Intraductal carcinoma in situ of left breast Encounter for follow-up surveillance of breast cancer S/P lumpectomy, left breast SCAN - LABS 02/26/2024 REGINALD QUALITATIVE WITH REFLEX TO REGINALD QUANTITATIVE Routine 02/20/2024 12:56 PM RESIDENTIAL CASE MANAGER Elevated liver enzymes MITOCHONDRIAL ANTIBODIES, QUALITATIVE Routine 02/20/2024 12:56 PM RESIDENTIAL CASE MANAGER Elevated liver enzymes SMOOTH MUSCLE ANTIBODY, QUALITATIVE Routine 02/20/2024 12:56 PM RESIDENTIAL CASE MANAGER Elevated liver enzymes HEPATITIS A ANTIBODY, IGM Routine 02/20/2024 12:56 PM RESIDENTIAL CASE MANAGER Elevated liver enzymes HEPATITIS A ANTIBODY, TOTAL Routine 02/20/2024 12:56 PM RESIDENTIAL CASE MANAGER Elevated liver enzymes HEPATITIS B CORE ANTIBODY, TOTAL Routine 02/20/2024 12:56 PM RESIDENTIAL CASE MANAGER Elevated liver enzymes HEPATITIS B SURFACE ANTIGEN Routine 02/20/2024 12:56 PM RESIDENTIAL CASE MANAGER Elevated liver enzymes DIFFERENTIAL AUTO Routine 02/20/2024 12: 41 PM RESIDENTIAL CASE MANAGER Elevated liver enzymes CBC WITH AUTO DIFFERENTIAL Routine 02/20/2024 12:41 PM RESIDENTIAL CASE MANAGER Elevated liver enzymes PROTIME-INR Routine 02/20/2024 12:41 PM RESIDENTIAL CASE MANAGER Elevated liver enzymes HEMOGLOBIN A1C Routine 02/20/2024 12:41 PM RESIDENTIAL CASE MANAGER Elevated liver enzymes EGFR Routine 02/20/2024 12:31 PM RESIDENTIAL CASE MANAGER Elevated liver enzymes [id number] Routine 02/20/2024 1 2:31 PM RESIDENTIAL CASE MANAGER Elevated liver enzymes COMPREHENSIVE METABOLIC PANEL Routine 02/20/2024 12:31 PM RESIDENTIAL CASE MANAGER Elevated liver enzymes FERRITIN Routine 02/20/2024 12:31 PM RESIDENTIAL CASE MANAGER Elevated liver enzymes IRON PROFILE W/ IBC Routine 02/20/2024 1 2:31 PM RESIDENTIAL CASE MANAGER Elevated liver enzymes LIPID PANEL Routine 02/20/2024 12:31 PM RESIDENTIAL CASE MANAGER Elevated liver enzymes BILIRUBIN, DIRECT Routine 02/20/2024 12: 31 PM RESIDENTIAL CASE MANAGER Elevated liver enzymes TSH Routine 02/20/2024 12:31 PM RESIDENTIAL CASE MANAGER Elevated liver enzymes LIVER ELASTOGRAPHY W/O IMAGING W/I&R Routine 02/20/2024 11:38 AM RESIDENTIAL CASE MANAGER Elevated liver enzymes from Last 3 Months Results * Screening Mammogram Bilateral W Sathish (04/17/2024 1:17 PM RESIDENTIAL CASE MANAGER) Anatomical Region Laterality Modality Breast Bilateral Mammography Narrative 04/17/2024 2:39 PM RESIDENTIAL CASE MANAGER Mammogram Technique: Bilateral Digital Breast Tomosynthesis, Bilateral C-view 2D Screening mammogram. Views obtained: bilateral craniocaudal and bilateral mediolateral oblique. Computer Aided Detection was performed. Mammogram Findings: The present examination has been compared to prior imaging studies performed at [facility] on 03/17/2021, 03/16/2022 and 03/22/2023. There are [...] compared to prior imaging studies performed at [facility] on 03/17/2021, 03/16/2022 and 03/22/2023. There are scattered areas of fibroglandular density. There are post breast conservation therapy changes in the left breast. There is no suspicious abnormality in either breast. Impression: There is no mammographic evidence of malignancy. Annual screening mammography is recommended. OVERALL FINAL ASSESSMENT: BI-RADS CATEGORY 2: Benign. Heavenly Holm NP IMG MAMMO PROCEDURES Final Resu lt * SCAN - LABS (02/26/2024) Provider Scanning Final Result * REGINALD ab ql w/rflx to REGINALD qn (02/20/2024 12:56 PM RESIDENTIAL CASE MANAGER) REGINALD Negative Comment: Interpretive Data Normal range [...] on 2019. Blood 02/20/2024 12:5 6 PM RESIDENTIAL CASE MANAGER 02/20/2024 1:17 PM RESIDENTIAL CASE MANAGER Result [facility] Shannan Lopez NP LAB BLOOD ORDERABLES Fin al Result Performing Organization Address [facility]/[place] Co de Phone Number [facility] [place] [address] * Smooth muscle antibody, qualitative (02/20/2024 12:56 PM RESIDENTIAL CASE MANAGER) Anti-smooth muscle Negative Negative Blood 02/20/2024 12:5 6 PM RESIDENTIAL CASE MANAGER 02/20/2024 1:17 PM RESIDENTIAL CASE MANAGER Result [facility] Shannan Lopez NP LAB BLOOD ORDERABLES Fin al Result Performing Organization Address [facility]/[place] Co de Phone Number [facility] [place] [address] * Mitochondrial antibodies, qualitative (02/20/2024 12:56 PM RESIDENTIAL CASE MANAGER) Pathologist [facility] Anti-mitochond rial Negative Negative Blood 02/20/2024 12:5 6 PM RESIDENTIAL CASE MANAGER 02/20/2024 1:17 PM RESIDENTIAL CASE MANAGER Shannan Lopez NP LAB BLOOD ORDERABLES Fin al Result Performing Organization Address City/[facility]/[place] Co de Phone Number [facility] Department [place] [address] * Hepatitis A antibody, IgM Blood (02/20/2024 12:56 PM RESIDENTIAL CASE MANAGER) Pathologist [facility] Hep A IgM Nonreactive Nonreactive Blood 02/20/2024 12:5 6 PM RESIDENTIAL CASE MANAGER 02/20/2024 1:17 PM RESIDENTIAL CASE MANAGER Shannan Lopez NP LAB MICROBIOLOGY - GENER AL ORDERABLES Final Result Performing Organization Address [facility] de Phone Number [facility] Department [place] [address] * Hepatitis A antibody, total Blood (02/20/2024 12:56 PM RESIDENTIAL CASE MANAGER) Pathologist [facility] Hep A total Nonreactive Nonreactive Blood 02/20/2024 12:5 6 PM RESIDENTIAL CASE MANAGER 02/20/2024 1:17 PM RESIDENTIAL CASE MANAGER Shannan oLpez NP LAB MICROBIOLOGY - GENER AL ORDERABLES Final Result Performing Organization Address [facility] de Phone Number [facility] [place] [address] * Hepatitis B core antibody, total Blood (02/20/2024 12:56 PM RESIDENTIAL CASE MANAGER) Pathologist [facility] Hep B core IgG/IgM Nonreactive Nonreactive Blood 02/20/2024 12:5 6 PM RESIDENTIAL CASE MANAGER 02/20/2024 1:17 PM RESIDENTIAL CASE MANAGER Shannan Lopez NP LAB MICROBIOLOGY - GENER AL ORDERABLES Final Result Performing Organization Address City/State/[place] Co de Phone Number [facility] [place] [address] * Hepatitis B Surface Antigen Blood (02/20/2024 12:56 PM RESIDENTIAL CASE MANAGER) Pathologist [facility] HepBsAg Nonreactive Nonreactive Blood 02/20/2024 12:5 6 PM RESIDENTIAL CASE MANAGER 02/20/2024 1:17 PM RESIDENTIAL CASE MANAGER Shannan Lopez NP LAB MICROBIOLOGY - GENER AL ORDERABLES Final Result Performing Organization Address [facility] de Phone Number [facility] [place] [address] * Differential, auto (02/20/2024 12:41 PM RESIDENTIAL CASE MANAGER) Pathologist [facility] Neutrophil abs 3.3 1.5 - 6.5 K/cumm Imm gran abs 0.0 0.0 - 0.1 K/cumm [facility] Lymphocyte abs 1.6 0.8 - 3.3 K/cumm [facility] Monocyte abs 0.5 0.2 - 0.8 K/cumm [facility] Eosinophil abs 0.2 0.0 - 0.5 K/cumm [facility] Basophil abs 0.0 0.0 - 0.1 K/cumm [facility] Neutrophil pct 59.0 % [facility] Comment: Interpretive Data Percent cell count reference ranges are not reported, since discordance with absolute values may lead to misinterpretation of CBC data. Current Interpretive Data was last revised on 2017. Imm gran pct 0.2 % [facility] Comment: Interpretive Data Percent cell count reference ranges are not reported, since discordance with absolute values may lead to misinterpretation of CBC data. Current Interpretive Data was last revised on 2017. Lymphocyte pct 27.7 % [facility] Comment: Interpretive Data Percent cell count reference ranges are not reported, since discordance with absolute values may lead to misinterpretation of CBC data. Current Interpretive Data was last revised on 2017. Monocyte pct 9.4 % [facility] Comment: Interpretive Data Percent cell count reference ranges are not reported, since discordance with absolute values may lead to misinterpretation of CBC data. Current Interpretive Data was last revised on 2017. Eosinophil pct 3.0 % [facility] Comment: Interpretive Data Percent cell count reference ranges are not reported, since discordance with absolute values may lead to misinterpretation of CBC data. Current Interpretive Data was last revised on 2017. Basophil pct 0.7 % [facility] Comment: Interpretive Data Percent cell count reference ranges are not reported, since discordance with absolute values may lead to misinterpretation of CBC data. Current Interpretive Data was last revised on 2017. Blood 02/20/2024 12:4 1 PM RESIDENTIAL CASE MANAGER 02/20/2024 1:18 PM RESIDENTIAL CASE MANAGER Shannan Lopez [employer] LAB BLOOD ORDERABLES Fin al Result [facility] Department [place] [address] * (ABNORMAL) CBC with auto differential (02/20/2024 12:41 PM RESIDENTIAL CASE MANAGER) WBC 5.6 3.8 - 9.9 K/cumm Hgb 15.5 11.9 - 15.5 g/dL [facility] Hct 46.0(H) 35.6 - 45.5 % [facility] Plt 210 150 - 400 K/cumm [facility] MPV 9.4 9.1 - 12.3 fL [facility] RBC 4.93 3.90 - 5.20 M/cumm [facility] MCV 93.3 81.3 - 96.4 fL [facility] MCH 31.4 27.1 - 33.3 pg [facility] MCHC 33.7 32.3 - 35.7 g/dL [facility] RDW CV 13.2 11.1 - 14.9 % [facility] RDW SD 44.9 35.7 - 48.1 fL [facility] NRBC abs 0.00 0.00 - 0.01 K/cumm [facility] Blood 02/20/2024 12:4 1 PM RESIDENTIAL CASE MANAGER 02/20/2024 1:18 PM RESIDENTIAL CASE MANAGER Shannan Lpoez NP LAB BLOOD ORDERABLES Fin al Result Performing Organization Address [facility] de Phone Number [facility] [place] [address] * Protime-INR (02/20/2024 12:41 PM RESIDENTIAL CASE MANAGER) PT 12.3 9.7 - 13.0 sec INR 1.14 0.90 - 1.20 [facility] Comment: Interpretive data Oral anticoagulant therapeutic ranges: Venous thromboembolism prophylaxis or treatment: 2.0-3.0 CARDIOLOGY Standard range: 2.0-3.0 High-intensity range: 2.5-3.5 Refer to indication-specific guidelines for appropriate target ranges for prosthetic heart valve replacement. Current interpretive data was last revised on 2019. Blood 02/20/2024 12:4 1 PM RESIDENTIAL CASE MANAGER 02/20/2024 1:18 PM RESIDENTIAL CASE MANAGER Result [facility] Shannan Lopez NP LAB BLOOD ORDERABLES Fin al Result Performing Organization Address [facility] de Phone Number [facility] [place] [address] * (ABNORMAL) Hemoglobin A1c (02/20/2024 12:41 PM RESIDENTIAL CASE MANAGER) Hgb A1C 5.9(H) 4.0 - 5.6 % Estimated Average Glucose 123 mg/dL [facility] Comment: The ADA recommends reporting an estimated Average Glucose (eAG) with all Hemoglobin A1c results using the equation derived from a study of 507 normal and diabetic adults. Minority populations were underrepresented and children were not included. (Diabetes Care 2020; 43(S1): S66-S76). The eAG is not equivalent to a fasting glucose. Blood 02/20/2024 12:4 1 PM RESIDENTIAL CASE MANAGER 02/20/2024 1:18 PM RESIDENTIAL CASE MANAGER Shannan Lopez NP LAB BLOOD ORDERABLES Fin al Result Performing Organization Address City/[facility]/[place] Co de Phone Number [facility] Department [place] [address] * eGFR (02/20/2024 12:31 PM RESIDENTIAL CASE MANAGER) eGFR 90 >=60 mL/min/1. 73 m2 Comment: [...] of Race in Diagnosing Kidney Disease, JASN 202). The CKD-EPI equation should not be used for patients with unstable renal function and has not been validated in children and those over 70. Current interpretive data was last reviewed 2020. Blood 02/20/2024 12:3 1 PM RESIDENTIAL CASE MANAGER 02/20/2024 1:16 PM RESIDENTIAL CASE MANAGER Shannan Lopez NP LAB BLOOD ORDERABLES Fin al Result Performing Organization Address [facility]/[place] Co de Phone Number [facility] Department [place] [address] * (ABNORMAL) Iron profile w/ IBC (02/20/2024 12:31 PM RESIDENTIAL CASE MANAGER) Iron 186(H) 35 - 145 mcg/dL TIBC 301 250 - 400 mcg/dL [facility] Transferrin saturation 62(H) 20 - 50 % [facility] Blood 02/20/2024 12:3 1 PM RESIDENTIAL CASE MANAGER 02/20/2024 1:16 PM RESIDENTIAL CASE MANAGER Shannan Lopez [employer] LAB BLOOD ORDERABLES Fin al Result Performing Organization Address City/[facility]/ZIP Co de Phone Number [facility] [place] [address] * [id number] (02/20/2024 12:31 PM RESIDENTIAL CASE MANAGER) Pathologist [facility] alpha-1 antitrypsin 136 90 - 200 mg/dL Blood 02/20/2024 12:3 1 PM RESIDENTIAL CASE MANAGER 02/20/2024 1:16 PM RESIDENTIAL CASE MANAGER Shannan Lopez NP LAB BLOOD ORDERABLES Fin al Result Performing Organization Address City/[facility]/[place] Co de Phone Number [facility] [place] [address] * TSH (02/20/2024 12:31 PM RESIDENTIAL CASE MANAGER) Pathologist [facility] Thyroid Stimulating Hormone 1.53 0.30 - 4.20 mcIUnit/mL Blood 02/20/2024 12:3 1 PM RESIDENTIAL CASE MANAGER 02/20/2024 1:16 PM RESIDENTIAL CASE MANAGER Shannan Lopez [employer] LAB BLOOD ORDERABLES Fin al Result Performing Organization Address City/[facility]/[place] Co de Phone Number [facility] [place] [address] * (ABNORMAL) Ferritin (02/20/2024 12:31 PM RESIDENTIAL CASE MANAGER) Pathologist [facility] Ferritin 274(H) 13 - 150 ng/mL Blood 02/20/2024 12:3 1 PM RESIDENTIAL CASE MANAGER 02/20/2024 1:16 PM RESIDENTIAL CASE MANAGER Shannan Lopez [employer] LAB BLOOD ORDERABLES Fin al Result Performing Organization Address City/[facility] de Phone Number [facility] [place] [address] * Bilirubin, direct (02/20/2024 12:31 PM RESIDENTIAL CASE MANAGER) Bilirubin, direct 0.2 0.1 - 0.3 mg/dL Blood 02/20/2024 12:3 1 PM RESIDENTIAL CASE MANAGER 02/20/2024 1:16 PM RESIDENTIAL CASE MANAGER Shannan Lopez NP LAB BLOOD ORDERABLES Fin al Result Performing Organization Address [facility] de Phone Number [facility] [place] [address] * (ABNORMAL) Lipid panel (02/20/2024 12:31 PM RESIDENTIAL CASE MANAGER) Cholesterol 250(H) 30 - 199 mg/dL Comment: [...] revised on 2017. Triglycerides 282(H) <=149 mg/dL [facility] Comment: Interpretive Data Ages < or [...] revised on 2017. HDL 54 >=40 mg/dL [facility] Comment: Interpretive Data Ages < or [...] on 2017. LDL, calculated 145(H) <=129 mg/dL [facility] Comment: Interpretive Data Ages < or = 19 years Acceptable: <110 mg/dL Borderline high: 110-129 mg/dL High: >or= 130 mg/dL Ages > or = 20 years Optimal: <100 mg/dL Near optimal: 100-129 mg/dL Borderline high: 130-159 mg/dL High: >160 mg/dL Calculated using the Gold LDL-C estimating [...] revised on 2023. Non-HDL Cholesterol 196 mg/dL [facility] Comment: Interpretive Data Ages < or [...] last revised on 2017. Chol/HDL ratio 5 [facility] Blood 02/20/2024 12:3 1 PM RESIDENTIAL CASE MANAGER 02/20/2024 1:16 PM RESIDENTIAL CASE MANAGER us Shannan Lopez NP LAB BLOOD ORDERABLES Fin al Result [facility] Department [place] [address] * (ABNORMAL) Comprehensive metabolic panel (02/20/2024 12:31 PM RESIDENTIAL CASE MANAGER) Sodium 139 135 - 145 mmol/L Potassium, pl 4.2 3.3 - 4.9 mmol/L [facility] Chloride 105 97 - 110 mmol/L [facility] CO2 26 22 - 32 mmol/L [facility] Anion gap 8 2 - 15 mmol/L [facility] BUN 21 6 - 25 mg/dL [facility] Creatinine 0.74 0.60 - 1.10 mg/dL [facility] Glucose 98 70 - 199 mg/dL [facility] Comment: Interpretive Data Fasting glucose >/= [...] 2022. Calcium 10.1 8.5 - 10.3 mg/dL [facility] Bilirubin, total 1.5(H) 0.1 - 1.2 mg/dL [facility] Protein, pl 7.9 6.5 - 8.5 g/dL [facility] Albumin 4.6 3.5 - 5.0 g/dL [facility] Alk phos 85 40 - 130 Units/L [facility] ALT 41 7 - 45 Units/L [facility] AST 40 10 - 45 Units/L [facility] Blood 02/20/2024 12:3 1 PM RESIDENTIAL CASE MANAGER 02/20/2024 1:16 PM RESIDENTIAL CASE MANAGER Shannan Lopez NP LAB BLOOD ORDERABLES Fin al Result [facility] Department [place] [address] * Liver Elastography w/o Imaging W/I&R -[facility] (All Locations) (02/20/2024 11:38 AM RESIDENTIAL CASE MANAGER) Anatomical Region Laterality Modality Other Shannan Lopez [employer] GI PROCEDURE ORDERABLES Final Result from Last 3 Months Insurance [facility] Care Teams Shell Sorter Relationship Specialty Start Date End Date Monica Lopez MD [address] [place] [address] PCP - General 04/30/17 Betsy Truong MD [address] [place] [address] Radiation Oncologist Radiation Oncology 09/09/17 Suyapa Diaz, PhD [address] [place] [address] Nurse Practitioner Radiation Oncology 09/09/17 Huan Nelson MD [address] [place] [address] Consulting Physician Otolaryngology 10/31/20 Heavenly Holm [employer] [address] DIV IM MEDICAL ONCOLOGY, [address] [place] [address] Nurse Practitioner Medical Oncology 01/02/22 Meir Marin MD [address] DIV IM MEDICAL ONCOLOGY, [address] [place] [address] Surgeon Thoracic Surgery 01/01/23
--- OUTSIDE RECORDS SUMMARY | 2024-04-24 10:12 | XMS_ITS | Patient Health Summary ---
Author Organization [facility] [employer] Address [address] [place] [address] Care Team Providers Care Jail Officer Name Role Phone Unavailable Primary Care Provider Unavailabl e Note from [facility],non-owned Affiliates and Associated Physician Practices is amultiple site organization consisting of ambulatory clinics and hospital sitesin [place], [place], [place] and [place]. This disclosure is being madepursuant to the Care Everywhere program and may not contain all information available regarding this patient. Last updated 17.[facility] [employer] Allergies * Penicillins(Rash) -Low Criticality Medications * Be aware that medications may not be up to date on this document. Alwaysverify current medications with the patient. * diclofenac sodium (VOLTAREN) 75 MG tablet Take 75 mg by mouth 2 times daily. * rosuvastatin (CRESTOR) 10 MG tablet Take 10 mg by mouth once daily. * vitamin D, ergocalciferol, (DRISDOL) 90550 UNIT capsule Take 50,000 units twice weekly [...] Comments Blood Pressure 114/78 04/19/2011 10:35 AM COMPUTER OPERATIONS TECHNICIAN Pulse - - Temperature 37.1 C (98.7 F) 04/19/2011 10:35 AM COMPUTER OPERATIONS TECHNICIAN Respiratory Rate - - Oxygen Saturation - [...] AM CDT) Case Report Dermatopathology Report Case: [id number] Authorizing Provider: Daniel Cleaning MD Collected: 09/08/2019 12:00 AM Ordering Location: [facility] DermPath Lab Received: 09/09/2019 09:59 AM [...] of a non-oriented ellipse of skin measuring [id number]. The epidermal surface is unremarkable. The margin [...] characteristic determined by the Dermatopathology Laboratory at [facility], directed by Dr. Prosper Blevins. These tests need not be, and therefore are not, approved by the [place] Food and Drug Administration. The tests are used for clinical purposes. Billing Codes Specimen Charges Stain Charges 59822 1 0 5:14 PM CDT DERMATOPATHOLOGY LABORATORY Embedded Images 0 5:14 PM CDT DERMATOPATHOLOGY LABORATORY Pathology/Cytolog y TISSUE SPECIMEN FROM SKIN / Unknown 09/08/2019 09/09/2019 9:59 AM CDT Daniel Cleaning MD LAB - PATHOLOGY/CYTO LOGY ORDERABLES DERMATOPATHOLOGY LABORATORY [facility] - Department of Dermatology Therapy Assistant [place]/[address] [phone] * IMAGING/RADIOLOGY/XRAY RESULTS ORDER (10/23/2014) Anatomical Region Laterality Modality Other Monica Lopez MD IMAGING * XR FOOT BILAT WEIGHT BEARING (03/29/2011 1:33 PM COMPUTER OPERATIONS TECHNICIAN) Anatomical Region Laterality Modality Ankle / Foot, Lower Extremity Ra diographic Imaging 03/29/2011 3:59 PM COMPUTER OPERATIONS TECHNICIAN Impressions 03/29/2011 4:09 PM COMPUTER OPERATIONS TECHNICIAN 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 Narrative 03/29/2011 4:09 PM COMPUTER OPERATIONS TECHNICIAN THREE VIEWS OF THE FEET BILATERAL Three [...] joints. Chiara Heller DPM DIAGNOSTIC IMAGING O DEANDRAERABLES
--- OUTSIDE RECORDS SUMMARY | 2024-04-24 10:12 | XMS_ITS | Clinical Summary ---
Author Organization [facility] Address [address] [address] Care Team Providers Care Rv Service Technician Name Role Phone Unavailable Primary Care Provider Unavailabl e Source Comments [facility],non-owned Affiliates and Associated Physician Practices is amultiple site organization consisting of ambulatory clinics and hospital sitesin [place], [place], [place] and [place]. This disclosure is being madepursuant to the Care Everywhere program and may not contain all information available regarding this patient. Last updated 17.[facility] [employer] Allergies Active Allergy Reactions Criticality Noted Date [...] once daily. Active vitamin D, ergocalciferol, (DRISDOL) 63677 UNIT capsule Take 50,000 units twice weekly [...] Comments Blood Pressure 114/78 04/19/2011 10:35 AM EPIC SPECIALIST Pulse - - Temperature 37.1 C (98.7 F) 04/19/2011 10:35 AM EPIC SPECIALIST Respiratory Rate - - Oxygen Saturation - [...] to complete this topic MENINGOCOCCAL (Group B) VACC INE SHARED DECISION-MAKING Aged Out No longer eligibl e based on patient's age to complete this topic MENINGOCOCCAL GROUPS A/C/Y/W VACCINE Aged Out No longer eligible b ased on patient's age to complete this topic PNEUMOCOCCAL VACCINE Aged Out No long er eligible based on patient's age to complete this topic Jannie Kong Personal/Family Self [address] [place] [address]
--- OUTSIDE RECORDS SUMMARY | 2024-04-24 10:12 | XMS_ITS | Referral Summary ---
Author Organization [facility] Address [address] [place] [address] Care Team Providers Care Criminal Researcher Name Role Phone Unavailable Primary Care Provider Unavailabl e Source Comments [facility],non-owned Affiliates and Associated Physician Practices is amultiple site organization consisting of ambulatory clinics and hospital sitesin [place], [place], [place] and [place]. This disclosure is being madepursuant to the [...] once daily. Active vitamin D, ergocalciferol, (DRISDOL) 01006 UNIT capsule Take 50,000 units twice weekly [...] Comments Blood Pressure 114/78 04/19/2011 10:35 AM FLY FISHING GUIDE Pulse - - Temperature 37.1 C (98.7 F) 04/19/2011 10:35 AM FLY FISHING GUIDE Respiratory Rate - - Oxygen Saturation - - Inhaled Oxygen Concentration - - Weight 86.2 kg (190 lb) 11/11/2014 2:58 PM CDT Height 175.3 cm (5' 9 ) 11/11/2014 2:58 PM CDT Body Mass Index 28.06 11/11/2014 2:58 PM CDT Plan of Treatment Not on file Administered Medications Jannie Kong Andrew Personal/Family Self 1960 [address] [place] [address]
--- OUTSIDE RECORDS SUMMARY | 2024-04-24 10:12 | XMS_ITS | Encounter Summary ---
Author Organization [facility] Address [address] [place] [address] Care Team Providers Care Automotive Software Engineer Name Role Phone Unavailable Primary Care Provider Unavailabl e Encounter Details Date Type Department Care Team (Late st Contact Info) Description 11/17/2014 Therapy Visit [facility] [address] [place] [address] Xiomara Samano MD [address] [place] [address] Social History Tobacco Use Types [...]
--- OUTSIDE RECORDS SUMMARY | 2024-04-24 10:12 | XMS_ITS | Encounter Summary ---
Author Organization [facility] Address [address] [place] [address] Phone Care Team Providers Care Mail Teller Name Role Phone Monica Lopez MD Primary Care Provider + [phone] Monica Lopez MD Primary Care Provider + [phone] Adolfo Alfaro MD Primary Care Provider Monica Lopez MD Primary Care Provider + [phone] Adolfo Alfaro MD Primary Care Provider Monica Lopez MD Primary Care Provider + [phone] Betsy Truong MD Unavailable Radha Allison MD Unavailable [phone] Suyapa Diaz PhD Unavailable [phone] Huan Nelson MD Unavailable [phone] Heavenly Holm DIRECTOR OF REGULATORY AFFAIRS Unavailable [phone] Meir Marin MD Unavailable [phone] Encounter Details Date Type Department Care Team (Latest Contact Info) Description 03/11/2017 Orders Only [facility] Scanning, Provider Social History Tobacco Use Types Packs/Day Years Used Date Smoking Tobacco: Never Comments Unknown Sex and Gender Information Value Date Recorded Sex Assigned at Not on file Legal Sex Female 1:22 PM FIELD PRODUCER Gender Identity Not on file Sexual Orientation [...] on filedocumented in this encounter Care Teams Mail Teller Relationship Specialty Start Date End Date Monica Lopez MD [address] [place] [address] PCP - General 03/07/17 03/28/17 Monica Lopez MD [address] [place] [address] PCP - General 03/29/17 03/31/17 Adolfo Alfaro MD [address] [facility] [address] [place] [address] PCP - General 04/01/17 04/03/17 Monica Lopez MD [address] [place] [address] PCP - General 04/04/17 04/16/17 Adolfo Alfaro MD [address] [place] [address] PCP - General 04/17/17 04/29/17 Monica Lopez MD [address] [place] [address] PCP - General 04/30/17 Betsy Truong MD [address] [place] [address] Radiation Oncologist Radiation Oncology 09/09/17 Radha Allison MD [address] [place] [address] Surgeon Surgical Oncology 09/09/17 01/01/22 Suyapa Diaz, PhD [address] [place] [address] Nurse Practitioner Radiation Oncology 09/09/17 Huan Nelson MD [address] [place] [address] Consulting Physician Otolaryngology 10/31/20 Heavenly Holm NP [address] DIV IM MEDICAL ONCOLOGY, [address] [place] [address] Nurse Practitioner Medical Oncology 01/02/22 Meir Marin MD [address] DIV IM MEDICAL ONCOLOGY, [address] [place] [address] Surgeon Thoracic Surgery 01/01/23 documented as of this encounter
[2024-04-24 11:03] LABS: Alanine Aminotransferase 40 U/L (14-59); Albumin Level 4.2 g/dL (3.4-5.0); Alkaline Phosphatase 102 U/L (46-116); Anion Gap 9 mmol/L (4-12); Aspartate Amino Transferase 22 U/L (15-37); Bilirubin,Total 1.7 mg/dL (0.00-1.00); Blood Urea Nitrogen 21 mg/dL (7-18); Calcium 9.3 mg/dL (8.5-10.1); Carbon Dioxide 29 mmol/L (21-32); Chloride 107 mmol/L (98-108); Cholesterol 211 mg/dL (0-200); Creatine Kinase 88 U/L (26-192); Estimated Glomerular Filt Rate > 60; Ferritin 247 ng/mL (8-252); Glucose 101 mg/dL (70-99); HDL Direct 57 mg/dL (40-60); Iron 149 ug/dL (50-170); LDL Cholesterol Calculated 122 mg/dL (<130); Osmolality Calculated 303 mOsm/kg (285-295); Potassium 4.3 mmol/L (3.5-5.1); Sodium 145 mmol/L (136-145); Total Protein 7.7 g/dL (6.4-8.2); Triglycerides 160 mg/dL (0-150)
== END 2024-04-24 09:39 | disposition home or self-care (01) ==
LOC: CHSLAB 09:40
PROVIDERS: PCP Internal Medicine; Visit Provider Internal Medicine
DX: E78.2 Mixed hyperlipidemia (principal); R73.01 Impaired fasting glucose; N39.0 Urinary tract infection, site not specified; D50.9 Iron deficiency anemia, unspecified
CPT/HCPCS: 36415; 80053; 80061; 81003; 82550; 82728; 83036; 83540; 85025

== ENCOUNTER 2024-06-09 14:58 | Outpatient (CLI) | payer OTHER, SELFPAY ==
--- NOTE | ~2024-06-09 | XR_ITS ---
EXAMINATION: XR chest 2V Exam Date/Time: 06/09/2024 15:20 CDT HISTORY: WHEEZING, COUGH, SOB X 1 week Comparison: 03/16/2024. RESULT: Lines, tubes, and devices: None. Lungs and pleura: Clear. Cardiomediastinal silhouette: Normal heart size. Dilation of the aortic root and mild aortic ectasia of the arch and descending aorta. Other: No acute osseous or upper abdominal finding. IMPRESSION: No acute cardiopulmonary process. Likely thoracic aortic ectasia, consider CTA of the chest for confirmation and baseline establishment . Reviewed, dictated and finalized at location K. IMPRESSION: No acute cardiopulmonary process. Likely thoracic aortic ectasia, consider CTA of the chest for confirmation and baseline establishment.
[2024-06-09 15:26] LABS: Basophils Absolute Auto 0.04 K/mm3 (0.00-0.10); Basophils Percent Auto 0.7 % (0.0-1.0); Eosinophils Absolute Auto 0.38 K/mm3 (0.02-0.50); Eosinophils Percent Auto 6.6 % (1.0-6.0); Hematocrit 45.8 % (35.0-49.0); Hemoglobin 15.1 g/dL (12.0-15.0); Immature Granulocyte Absolute 0.01 K/mm3 (0.00-0.00); Immature Granulocyte Percent A 0.2 % (0.0-0.0); Lymphocytes Absolute Auto 1.64 K/mm3 (1.10-4.50); Lymphocytes Percent Auto 28.7 % (18.0-42.0); Mean Corpuscular Hemoglobin 31.5 pg (27.0-31.0); Mean Corpuscular Volume 95.6 fL (78.0-102.0); Mean Platelet Volume 9.2 fl (9.2-11.8); Monocytes Percent Auto 12.2 % (2.0-11.0); Neutrophils Absolute Auto 2.95 K/mm3 (1.70-7.20); Neutrophils Percent Auto 51.6 % (50.0-70.0); Platelet Count Result 176 K/mm3 (150-420); Red Blood Count 4.79 M/mm3 (4.20-5.40); Red Cell Distribution Width 13.1 % (11.6-14.4); White Blood Count 5.7 K/mm3 (4.8-10.8)
[2024-06-09 16:03] LABS: Influenza A QL RT-PCR Negative (Negative); Influenza B QL RT-PCR Negative (Negative); RSV RNA, RT-PCR Negative (Negative); SARS-CoV-2 RNA PCR Negative (Negative)
== END 2024-06-09 14:59 | disposition home or self-care (01) ==
LOC: CHSLAB 15:00
PROVIDERS: PCP Internal Medicine; Visit Provider Internal Medicine
DX: R05.9 Cough, unspecified (principal); R06.2 Wheezing
CPT/HCPCS: 36415; 71046; 85025; 87637

== ENCOUNTER 2024-08-31 08:48 | Outpatient (CLI) | payer OTHER, SELFPAY ==
--- OUTSIDE RECORDS SUMMARY | 2024-08-31 08:56 | XMS_ITS | Encounter Summary ---
Author Organization [facility] Address [address] [place] [address] Care Team Providers Care Mountain Guide Name Role Phone Unavailable Primary Care Provider Unavailabl e Encounter Details Date Type Department Care Team (Late st Contact Info) Description 11/17/2014 Therapy Visit [facility] [address] [place] [address] Xiomara Samano MD [address] [place] [address] Social History Tobacco Use Types Packs/Day Years Used Date Smoking Tobacco: Never Alcohol Use Standard Drinks/Week Comments Yes 0 (1 standard drink = 0.6 oz pur e alcohol) social ETOH few times monthly Comments Unknown Sex and Gender Information Value Date Recorded Sex Assigned at Not on file Legal Sex Female 1:07 PM FIELD SUPPORT TECHNICIAN Gender Identity Not on file Sexual Orientation Not on file documented as of this encounter Plan of Treatment Not on file documented as of this encounter Visit Diagnoses Not on filedocumented in this encounter
--- OUTSIDE RECORDS SUMMARY | 2024-08-31 08:56 | XMS_ITS | Encounter Summary ---
Author Organization [facility] Address [address] [place] [address] Phone Care Team Providers Care Account Liaison Hospice Name Role Phone Monica Lopez MD Primary Care Provider + [phone] Monica Lopez MD Primary Care Provider + [phone] Adolfo Alfaro MD Primary Care Provider Monica Lopez MD Primary Care Provider + [phone] Adolfo Alfaro MD Primary Care Provider Monica Lopez MD Primary Care Provider + [phone] Betsy Truong MD Unavailable Radha Allison MD Unavailable [phone] Suyapa Diaz PhD Unavailable [phone] Huan Nelson MD Unavailable [phone] Heavenly Holm COMMUNICATIONS PLANNER Unavailable [phone] Meir Marin MD Unavailable [phone] Encounter Details Date Type Department Care Team (Latest Contact Info) Description 03/11/2017 Orders Only [facility] Scanning, Provider Social History Tobacco Use Types Packs/Day Years Used Date Smoking Tobacco: Never Comments Unknown Sex and Gender Information Value Date Recorded Sex Assigned at Not on file Legal Sex Female 1:22 PM SUPERVISING BROKER Gender Identity Not on file Sexual Orientation [...] on filedocumented in this encounter Care Teams Account Liaison Hospice Relationship Specialty Start Date End Date Monica Lopez MD [address] [place] [address] PCP - General 03/07/17 03/28/17 Monica Lopez MD [address] [place] [address] PCP - General 03/29/17 03/31/17 Adolfo Alfaro MD [address] [facility] [address] [place] [address] PCP - General 04/01/17 04/03/17 Monica Lopez MD [address] [place] [address] PCP - General 04/04/17 04/16/17 Adolfo Alfaro MD [address] [place] [address] PCP - General 04/17/17 04/29/17 Monica Lopez MD [address] [place] [address] PCP - General 04/30/17 Betsy Truong MD [address] [place] [address] Radiation Oncologist Radiation Oncology 09/09/17 Radha Allison MD [address] [place] [address] Surgeon Surgical Oncology 09/09/17 01/01/22 Suyapa Diaz, PhD [address] [place] [address] Nurse Practitioner Radiation Oncology 09/09/17 Huan Nelson MD [address] [place] [address] Consulting Physician Otolaryngology 10/31/20 Heavenly Holm NP [address] DIV IM MEDICAL ONCOLOGY, [address] [place] [address] Nurse Practitioner Medical Oncology 01/02/22 Meir Marin MD [address] DIV IM MEDICAL ONCOLOGY, [address] [place] [address] Surgeon Thoracic Surgery 01/01/23 documented as of this encounter
--- OUTSIDE RECORDS SUMMARY | 2024-08-31 08:56 | XMS_ITS | Clinical Summary ---
Author Organization [facility] Address [address] [place] [address] Care Team Providers Care Timing Inspector Name Role Phone Unavailable Primary Care Provider Unavailabl e Source Comments [facility],non-owned Affiliates and Associated Physician Practices is amultiple site organization consisting of ambulatory clinics and hospital sitesin [place], [place], [place] and [place]. This disclosure is being madepursuant to the Care Everywhere program and may not contain all information available regarding this patient. Last updated 17.[facility] [employer] Allergies Active Allergy Reactions Criticality Noted Date Comments Penicillins Rash Low 03/29/2011 Medications * Be aware that medications may not be up to date on this document. Alwaysverify current medications with the patient. diclofenac sodium (VOLTAREN) 75 MG tablet Take 75 mg by mouth 2 times daily. Active rosuvastatin (CRESTOR) 10 MG tablet Take 10 mg by mouth once daily. Active vitamin D, ergocalciferol, (DRISDOL) 45385 UNIT capsule Take 50,000 units twice weekly Active Multiple Vitamin (MULTI-VITAMIN PO) Take by mouth. Active Calcium Carbonate-Vitami n D (CALCIUM + D PO) Take by mouth. Active Fexofenadine-Pse udoephedrine (BENITA-D 12 HOUR PO) Take by mouth. [...] on file Legal Sex Female 1:07 PM SCIENCE EDUCATION PROFESSOR Gender Identity Not on file Sexual Orientation Not on file Last Filed Vital Signs Vital Sign Reading Time Taken Comments Blood Pressure 114/78 04/19/2011 10:35 AM SCIENCE EDUCATION PROFESSOR Pulse - - Temperature 37.1 C (98.7 F) 04/19/2011 10:35 AM SCIENCE EDUCATION PROFESSOR Respiratory Rate - - Oxygen Saturation - - Inhaled Oxygen Concentration - - Weight 86.2 kg (190 lb) 11/11/2014 2:58 PM CDT Height 175.3 cm (5' 9) 11/11/2014 2:58 PM CDT Body Mass Index [...] - COLON CA SCREENING 1960 MAMMOGRAM 1960 HIV SCREENING 02/04/1975 HEPATITIS C SCREENING 01/31/1978 DTAP/TDAP/TD VACCINES (1 - Tdap) 02/04/1979 PNEUMOCOCCAL VACCINE 50+ (1 of 1 - PCV) 02/04/2010 ZOSTER VACCINE (1 of 2) 02/04/2010 COVID-19 VACCINE ( - 2023-2 5 season) 2023 DEPRESSION SCREENING 02/12/2024 INFLUENZA VACCINE (#1) 2024 Respiratory Syncytial Virus (RSV) Vaccine Pt: or [...] patient's age to complete this topic Insurance [facility] [facility]
--- OUTSIDE RECORDS SUMMARY | 2024-08-31 08:56 | XMS_ITS ---
Author Organization [facility] Address [address] [place] [address] Care Team Providers Care Video Effects Editor Name Role Phone Monica Lopez MD Primary Care Provider + [phone] Betsy Truong MD Unavailable Suyapa Diaz PhD Unavailable [phone] Huan Nelson MD Unavailable [phone] Heavenly Holm PRODUCTION BROACHING MACHINE OPERATOR Unavailable [phone] Meir Marin MD Unavailable [phone] Active Problems Patient Care Coordination No [...] 02/20/2024 Assessment & Plan (02/20/2024 12:05 PM GLOVE FORMER): Patient with elevated liver tests including elevated [...] 02/20/2024 Assessment & Plan (02/20/2024 12:07 PM GLOVE FORMER): We discussed the importance of weight loss. She will work on eating healthier and increasing exercise. She should avoid alcohol use. Unable to get GLP1 as she is not diabetic. Will check A1C to see if this has changed. 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
--- OUTSIDE RECORDS SUMMARY | 2024-08-31 08:56 | XMS_ITS | Encounter Summary ---
Author Organization [facility] Address [facility] [place] [address] Care Team Providers Care Starbucks Clerk Name Role Phone Monica Lopez MD Primary Care Provider Zak Bolanos MD Unavailable Encounter Details Date Type Department Care Team (Late st Contact Info) Description 02/13/2017 Abstract [facility] [address] [place] [address] Zak Bolanos MD [address] [place] [address] Social History Tobacco Use Types Packs/Day Years Used Date Smoking Tobacco: Never Comments Unknown Sex and Gender Information Value Date Recorded Sex Assigned at Not on file Legal Sex Female 10:54 PM CERTIFIED ORTHOTIST Gender Identity Not on file Sexual Orientation Not on file 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
--- OUTSIDE RECORDS SUMMARY | 2024-08-31 08:56 | XMS_ITS | Encounter Summary ---
Author Organization [facility] Address [facility] [facility] [place] [address] Care Team Providers Care Occupational Health Nurse Name Role Phone Unavailable Primary Care Provider Unavailabl e Encounter Details Date Type Department Care Team (Late st Contact Info) Description 09/09/2019 Lab Requisition [facility] Lab [address] [place] [address] [place] [address] [facility] [address] [place] [address] Social History Tobacco Use Types Packs/Day Years Used Date Smoking Tobacco: Never Alcohol Use Standard Drinks/Week Comments Yes 0 (1 standard drink = 0.6 oz pur e alcohol) social ETOH few times monthly Comments Unknown Sex and Gender Information Value Date Recorded Sex Assigned at Not on file 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 MILL OPERATOR Gender Identity Not on file Sexual Orientation Not on file documented as of this encounter Plan of Treatment Not on file documented as of this encounter Procedures Procedure Name Priority Date/Time Associated Diagnosis Comments DERMATOPATHOLOGY Routine 09/08/2019 12:0 0 AM CDT documented in this encounter Results * DERMATOPATHOLOGY (09/08/2019 12:00 AM CDT) Case Report Dermatopathology Report Case: [id number] Authorizing Provider: Daniel Cleaning MD Collected: 09/08/2019 12:00 AM Ordering Location: [facility] Derm[facility] Lab Received: 09/09/2019 09:59 AM Pathologist: Kavin Blevins MD Specimen: Skin, left upper lid 0 5:14 PM CDT DERMATOPATHOLOGY LABORATORY Final Diagnosis Specimen A. SKIN, left upper lid: DERMAL FIBROSIS (L90.5) (see microscopic description) 0 5:14 PM CDT DERMATOPATHOLOGY LABORATORY at 1714 CDT Clinical History Lesion uncertain behavior poss scar/fibrosis R/O skin Ca. 0 5:14 PM CDT DERMATOPATHOLOGY LABORATORY Gross Description Specimen A: Received is one formalin filled container labeled with the patient's name and designated left upper lid. The specimen consists of a non-oriented ellipse of skin measuring [id number]. The epidermal surface is unremarkable. The margin [...] characteristic determined by the Dermatopathology Laboratory at [facility], directed by Dr. Prosper Blevins. These tests need not be, and therefore are not, approved by the [place] Food and Drug Administration. The tests are used for clinical purposes. Billing Codes Specimen Charges Stain Charges 50124 1 0 5:14 PM CDT DERMATOPATHOLOGY LABORATORY Embedded Images 0 5:14 PM CDT DERMATOPATHOLOGY LABORATORY Pathology/Cytolog y TISSUE SPECIMEN FROM SKIN / Unknown 09/08/2019 09/09/2019 9:59 AM CDT Daniel Cleaning MD LAB - PATHOLOGY/CYTOLOGY ORDE GWEN Final Result DERMATOPATHOLOGY LABORATORY [facility] - Department of Dermatology Gas Inspector [place]/[address] [phone] documented in this encounter Visit Diagnoses Not on filedocumented in this encounter
--- OUTSIDE RECORDS SUMMARY | 2024-08-31 08:56 | XMS_ITS | Clinical Summary ---
Author Organization [facility] Address formerly [facility] [place] [address] Care Team Providers Care Record Searcher Name Role Phone Monica Lopez MD Primary Care Provider [phone] Zak Bolanos MD Unavailable [phone] Allergies Active Allergy Reactions Criticality Noted Date Comments Penicillins Unknown 02/15/2017 Medications rosuvastatin 10 MG tablet Take 10 mg by mouth daily. Active meloxicam 15 MG tablet Take 15 mg by mouth daily. Active ipratropium 0.06 % nasal spray 2 sprays by Nasal route 3 (three) times daily. Active vitamin D2, ergocalciferol, 10885 UNITS capsule 01/28/2017 Active magnesium oxide 400 [...] on file Legal Sex Female 10:[address] OF [address] Gender Identity Not on file Sexual Orientation [...] 9:28 AM CDT Height 172.7 cm (5' 8) 04/25/2018 9:28 AM CDT Body Mass Index 29.19 04/25/2018 9:28 AM CDT Plan of Treatment Health Maintenance Due Date Last Done Comments Cervical Cancer Screening Pa p Smear (Age 30 to 64) Every 3 Years 1960 Colorectal Cancer Screening Colonoscopy (10 Years) 1960 Annual Physical 02/04/1963 Hepatitis C 02/04/1978 DTaP, Tdap and Td Vaccines ( 1 - Tdap) 02/04/1979 Cervical Cancer Screening Pa p with HPV Testing (Age 30 to 64) Every 5 Years 02/04/1990 Cervical Cancer Screening with HPV 02/04/1990 Mammogram Screening 2000 Pneumococcal Vaccine: 50+ Ye ars (1 of 1 - PCV) 02/04/2010 Zoster Vaccines (1 of 2) 02/04/2010 COVID-19 Vaccine ( - 2023-2 5 season) 2023 RSV Immunization or 60+ Years (1 - 1-dose 75+ series) 02/04/2035 Meningococcal B Vaccine Aged Out No l onger eligible based on patient's age to complete this topic Meningococcal Vaccine Aged Out No rayo jerrod eligible based on patient's age to complete this topic RSV Immunizations Under 20 Months Aged Out No longer eligible based on patient's age to complete this topic Insurance [facility] Care Teams Record Searcher Relationship Specialty Start Date End Date Monica Lopez MD [address] [place] [id number] PCP - General INTERNAL MEDICINE 02/27/17 Zak Bolanos MD [address] [place] [address] [place] [employer] Design And Installation Technician CARDIOVASCULAR DISEASE 02/27/17
--- OUTSIDE RECORDS SUMMARY | 2024-08-31 08:56 | XMS_ITS | Clinical Summary ---
Author Organization [facility] 2 Address [address] [facility] [place] [address] Care Team Providers Care Burr Mill Operator Name Role Phone Monica Lopez MD Primary Care Provider + [phone] Betsy Truong MD Unavailable Suyapa Diaz PhD Unavailable [phone] Huan Nelson MD Unavailable Heavenly Holm PANELBOARD OPERATOR Unavailable [phone] Meir Marin MD Unavailable [phone] Allergies Active Allergy Reactions Criticality Noted Date Comments Grass Pollen Rhinitis Low 04/03/2016 Penicillins Rash Medium 03/29/2011 High school; penicillin at time of having [place] Ragweed Rhinitis,Sneezing Low 04/03/2016 Tree And Shrub [...] 02/20/2024 Assessment & Plan (02/20/2024 12:05 PM MANAGER CARE): Patient with elevated liver tests including elevated [...] 02/20/2024 Assessment & Plan (02/20/2024 12:07 PM MANAGER CARE): We discussed the importance of weight loss. She will work on eating healthier and increasing exercise. She should avoid alcohol use. Unable to get GLP1 as she is not diabetic. Will check A1C to see if this has changed. 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 08/06/2017 Cancer Staging:Pathologic stage from 05/01/2017:Stage 0(pTis (DCIS), pN0, cM0, ER: Positive, GA: Positive, HER2: Not Assessed) - Signed by Suyapa Diaz, PhD on 09/09/2017 Clinical: Unsigned Encounters Date Type Department Care Team Description 06/15/2024 Telephone [facility] Gastroenterology [address] [facility] 12th [place] [address] [place] [address] Darya Singh Labs due late June to late August from Last 3 Months Immunizations Immunization Administration Dates Next Due Influenza, Quadrivalent, Split, Intramuscular ,11/13/2013 Influenza, Quadrivalent, Spl it, Preservative Free, Intramuscular 11/14/2018,11/27/2017 Influenza, Trivalent, IM (MDV) 12/17/2012,2012 Influenza, Trivalent, Preservative Free, Intramu scular 10/15/2014 Moderna SARS-CoV-2 Monovalent Vaccination (12+ Y RS) 03/12/2020,02/13/2020 Surgical History Surgery Date Site/Laterality Comments [place] NEUROPLASTY &/TRANSPOS MEDIAN NRV CARPAL TUNNE 02/12/2012 - 02/10/2013 Bilateral Neuroplasty Median Nerve At Carpal Tunnel - (Added by TW Conv) 2013 right, 2014 left FOOT SURGERY Foot Surgery [...] on file Legal Sex Female 1:22 PM MANAGER CARE Gender Identity Not on file Sexual Orientation Not on file Obstetrics History Last Filed Vital Signs Vital Sign Reading Time Taken Comments Blood Pressure 125/80 04/17/2024 11:48 AM MANAGER CARE Pulse 76 04/17/2024 11:48 AM MANAGER CARE Temperature 36.7 C (98.1 F) 04/17/2024 11:48 AM MANAGER CARE Respiratory Rate 18 04/17/2024 11:4 8 AM MANAGER CARE Oxygen Saturation 97% 04/17/2024 11: 48 AM MANAGER CARE Inhaled Oxygen Concentration - - Weight 86.1 kg (189 lb 12.8 oz) 025 11:48 AM MANAGER CARE Height 171.5 cm (5' 7.52) 04/17/2024 1 1:48 AM MANAGER CARE Body Mass Index 29.27 04/17/2024 11:48 AM MANAGER CARE Plan of Treatment Health Maintenance Due Date [...] season) 2023 03/12/2020, 02/13/2020 Influenza Vaccine (#1) 2024 9, 11/27/2017, 02/06/2016, Additional history exists Breast Cancer Screening-Mammogram 04/17/2025 04/17/2024, 03/22/2023, 03/16/2022, Additional history exists Medical Devices Implanted Type Area Commercial Installer Device Identifier Shelf Expiration Date Model / Serial / Lot Rt Great Toe Ortho Instrumentation Right: Toes Procedures Procedure Name Priority Date/Time Associated Diagnosis Comments SCREENING MAMMOGRAM BILATERAL W SATHISH Schedule Routine, Read Routine (OP Routine) 04/17/2024 1:17 PM MANAGER CARE Intraductal carcinoma in situ of left breast Encounter for follow-up surveillance of breast cancer S/P lumpectomy, left breast from Last 3 Months or Most Recently Relevant to Health Maintenance Results * Screening Mammogram Bilateral W Sathish (04/17/2024 1:17 PM MANAGER CARE) Anatomical Region Laterality Modality Breast Bilateral Mammography Narrative 04/17/2024 2:39 PM MANAGER CARE Mammogram Technique: Bilateral Digital Breast Tomosynthesis, Bilateral C-view 2D Screening mammogram. Views obtained: bilateral craniocaudal and bilateral mediolateral oblique. Computer Aided Detection was performed. Mammogram Findings: The present examination has been compared to prior imaging studies performed at [facility] on 03/17/2021, 03/16/2022 and 03/22/2023. There [...] compared to prior imaging studies performed at [facility] on 03/17/2021, 03/16/2022 and 03/22/2023. There are scattered areas of fibroglandular density. There are post breast conservation therapy changes in the left breast. There is no suspicious abnormality in either breast. Impression: There is no mammographic evidence of malignancy. Annual screening mammography is recommended. OVERALL FINAL ASSESSMENT: BI-RADS CATEGORY 2: Benign. Heavenly Holm PANELBOARD OPERATOR IMG MAMMO PROCEDURES Final Resu lt from Last 3 Months or Most Recently Relevant to Health Maintenance Insurance [facility] Care Teams Burr Mill Operator Relationship Specialty Start Date End Date Monica Lopez MD [address] [place] [address] PCP - General 04/30/17 Betsy Truong MD [address] [place] [address] Radiation Oncologist Radiation Oncology 09/09/17 Suyapa Diaz, PhD [address] [facility] [facility] [address] [place] [address] Nurse Practitioner Radiation Oncology 09/09/17 Huan Nelson MD [address] [place] [address] Consulting Physician Otolaryngology 10/31/20 Heavenly Holm NP [address] [facility], [address] [place] [address] Nurse Practitioner Medical Oncology 01/02/22 Meir Marin MD [address] [facility], [address] [place] [address] Surgeon Thoracic Surgery 01/01/23
--- OUTSIDE RECORDS SUMMARY | 2024-08-31 08:56 | XMS_ITS | Referral Summary ---
Author Organization [facility] 2 Address [address] [place] [address] Care Team Providers Care Cnc Machinist 2Nd Shift Name Role Phone Monica Lopez MD Primary Care Provider + [phone] Betsy Truong MD Unavailable Suyapa Diaz PhD Unavailable [phone] Huan Nelson MD Unavailable [phone] Heavenly Holm PUBLIC HEALTH PROGRAM MANAGER Unavailable [phone] Meir Marin MD Unavailable [phone] Encounters Date Type Department Care Team Description 06/15/2024 Telephone [facility] Gastroenterology [address] [facility] 12th [place] [address] [place] [address] Darya Singh Labs due late June to late August from Last 3 Months Allergies Active Allergy Reactions Criticality Noted Date Comments Grass Pollen Rhinitis Low 04/03/2016 Penicillins Rash Medium 03/29/2011 High school; penicillin at time of having [employer] Ragweed Rhinitis,Sneezing Low 04/03/2016 Tree And Shrub [...] 02/20/2024 Assessment & Plan (02/20/2024 12:05 PM HOT METAL CHARGER): Patient with elevated liver tests including elevated [...] 02/20/2024 Assessment & Plan (02/20/2024 12:07 PM HOT METAL CHARGER): We discussed the importance of weight loss. She will work on eating healthier and increasing exercise. She should avoid alcohol use. Unable to get GLP1 as she is not diabetic. Will check A1C to see if this has changed. 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 08/06/2017 Cancer Staging:Pathologic stage from 05/01/2017:Stage 0(pTis (DCIS), pN0, cM0, ER: Positive, [place]: Positive, HER2: Not Assessed) - Signed by [...] on file Legal Sex Female 1:22 PM HOT METAL CHARGER Gender Identity Not on file Sexual Orientation Not on file Last Filed Vital Signs Vital Sign Reading Time Taken Comments Blood Pressure 125/80 04/17/2024 11:48 AM HOT METAL CHARGER Pulse 76 04/17/2024 11:48 AM HOT METAL CHARGER Temperature 36.7 C (98.1 F) 04/17/2024 11:48 AM HOT METAL CHARGER Respiratory Rate 18 04/17/2024 11:4 8 AM HOT METAL CHARGER Oxygen Saturation 97% 04/17/2024 11: 48 AM HOT METAL CHARGER Inhaled Oxygen Concentration - - Weight 86.1 kg (189 lb 12.8 oz) 025 11:48 AM HOT METAL CHARGER Height 171.5 cm (5' 7.52) 04/17/2024 1 1:48 AM HOT METAL CHARGER Body Mass Index 29.27 04/17/2024 11:48 AM HOT METAL CHARGER Plan of Treatment Not on file Medical Devices Implanted Type Area Color Paste Mixer Device Identifier Shelf Expiration Date Model / Serial / Lot Rt Great Toe Ortho Instrumentation Right: Toes Procedures Procedure Name Priority Date/Time Associated Diagnosis Comments SCREENING MAMMOGRAM BILATERAL W BALDO Schedule Routine, Read Routine (OP Routine) 04/17/2024 1:17 PM HOT METAL CHARGER Intraductal carcinoma in situ of left breast Encounter for follow-up surveillance of breast cancer S/P lumpectomy, left breast from Last 3 Months or Most Recently Relevant to Health Maintenance Results * Screening Mammogram Bilateral W Baldo (04/17/2024 1:17 PM HOT METAL CHARGER) Anatomical Region Laterality Modality Breast Bilateral Mammography Narrative 04/17/2024 2:39 PM HOT METAL CHARGER Mammogram Technique: Bilateral Digital Breast Tomosynthesis, Bilateral C-view 2D Screening mammogram. Views obtained: bilateral craniocaudal and bilateral mediolateral oblique. Computer Aided Detection was performed. Mammogram Findings: The present examination has been compared to prior imaging studies performed at [facility] on 03/17/2021, 03/16/2022 and 03/22/2023. There are [...] compared to prior imaging studies performed at [facility] on 03/17/2021, 03/16/2022 and 03/22/2023. There are [...] Most Recently Relevant to Health Maintenance Insurance [facility] Care Teams Cnc Machinist 2Nd Shift Relationship Specialty Start Date End Date Monica Lopez MD [address] [place] [address] PCP - General 04/30/17 Betsy Truong MD [address] [place] [address] Radiation Oncologist Radiation Oncology 09/09/17 Suyapa Diaz, PhD [address] [place] [address] Nurse Practitioner Radiation Oncology 09/09/17 Huan Nelson MD [address] [place] [address] Consulting Physician Otolaryngology 10/31/20 Heavenly Holm NP [address] DIV IM MEDICAL ONCOLOGY, [facility] [address] [place] [address] Nurse Practitioner Medical Oncology 01/02/22 Meir Marin MD [address] DIV IM MEDICAL ONCOLOGY, [facility] [address] [place] [address] Surgeon Thoracic Surgery 01/01/23
[2024-08-31 10:06] LABS: Alanine Aminotransferase 32 U/L (6-35); Albumin Level 4.4 g/dL (3.5-5.1); Alkaline Phosphatase 64 U/L (38-126); Aspartate Amino Transferase 38 U/L (14-36); Bilirubin,Total 2.2 mg/dL (0.2-1.3); Total Protein 7.2 g/dL (6.3-8.2)
== END 2024-08-31 08:49 | disposition home or self-care (01) ==
LOC: CHSLAB 08:50
PROVIDERS: PCP Internal Medicine; Visit Provider Nurse Practitioner
DX: R74.8 Abnormal levels of other serum enzymes (principal)
CPT/HCPCS: 36415; 80076

== ENCOUNTER 2024-11-03 09:17 | Outpatient (CLI) | payer OTHER, SELFPAY ==
[2024-11-03 09:30] LABS: Hematocrit 46.1 % (35.0-49.0); Hemoglobin 15.4 g/dL (12.0-15.0); Mean Corpuscular HGB Conc 33.4 g/dL (32-36); Mean Corpuscular Hemoglobin 31.3 pg (27.0-31.0); Mean Corpuscular Volume 93.7 fL (78.0-102.0); Platelet Count Result 215 K/mm3 (150-420); Red Blood Count 4.92 M/mm3 (4.20-5.40); White Blood Count 5.5 K/mm3 (4.8-10.8)
[2024-11-03 09:31] LABS: Add Urine Microscopic? NO; Appearance Urine Clear (Clear); Glucose Urine UA Negative (Negative); Leukocyte Esterase Ur Negative (Negative); Nitrate Urine Negative (Negative); Specific Grav Ur 1.025 (1.010-1.020)
[2024-11-03 09:41] LABS: Hemoglobin A1C 5.6 % (<5.7)
--- OUTSIDE RECORDS SUMMARY | 2024-11-03 09:53 | XMS_ITS | Clinical Summary ---
Author Organization [facility] Address [facility] [place] [address] Care Team Providers Care [employer] Dean Name Role Phone Monica Lopez MD Primary Care Provider [phone] Zak Bolanos MD Unavailable [phone] Allergies Active Allergy Reactions Criticality Noted Date Comments Penicillins Unknown 02/15/2017 Medications rosuvastatin 10 MG tablet Take 10 mg by mouth daily. Active meloxicam 15 MG tablet Take 15 mg by mouth daily. Active ipratropium 0.06 % nasal spray 2 sprays by Nasal route 3 (three) times daily. Active vitamin D2, ergocalciferol, 90987 UNITS capsule 01/28/2017 Active magnesium oxide 400 [...] on file Legal Sex Female 10:54 PM GATE WATCHMAN Gender Identity Not on file Sexual Orientation [...] COVID-19 Vaccine ( - 2023-2 5 season) 2024 RSV Immunization or 60+ Years (1 - 1-dose 75+ series) 02/04/2035 Meningococcal B Vaccine Aged Out No l onger eligible based on patient's age to complete this topic Meningococcal Vaccine Aged Out No rayo jerrod eligible based on patient's age to complete this topic RSV Immunizations Under 20 Months Aged Out No longer eligible based on patient's age to complete this topic Insurance [facility] Care Teams [employer] Dean Relationship Specialty Start Date End Date Monica Lopez MD [address] [place] [id number] PCP - General INTERNAL MEDICINE 02/27/17 Zak Bolanos MD [address] [place] [address] [place] [employer] Chief Experience Officer CARDIOVASCULAR DISEASE 02/27/17
--- OUTSIDE RECORDS SUMMARY | 2024-11-03 09:53 | XMS_ITS | Encounter Summary ---
Author Organization [facility] Address [facility]ly [facility] [place] [address] Care Team Providers Care Study Abroad Coordinator Name Role Phone Monica Lopez MD Primary Care Provider Zak Bolanos MD Unavailable Encounter Details Date Type Department Care Team (Late st Contact Info) Description 02/13/2017 Abstract [facility] [address] [place] [address] Zak Bolanos MD [address] [place] [address] Social History Tobacco Use Types Packs/Day Years Used Date Smoking Tobacco: Never Comments Unknown Sex and Gender Information Value Date Recorded Sex Assigned at Not on file Legal Sex Female 10:54 PM BOOT AND SHOE LABORER Gender Identity Not on file Sexual Orientation Not on file 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
--- OUTSIDE RECORDS SUMMARY | 2024-11-03 09:53 | XMS_ITS | Encounter Summary ---
Author Organization [facility] Address [address] [place] [address] Phone Care Team Providers Care Pie Bottomer Name Role Phone Monica Lopez MD Primary Care Provider + [phone] Monica Lopez MD Primary Care Provider [phone] Adolfo Alfaro MD Primary Care Provider Monica Lopez MD Primary Care Provider + [phone] Adolfo Alfaro MD Primary Care Provider Monica Lopez MD Primary Care Provider + [phone] Betsy Truong MD Unavailable Radha Allison MD Unavailable [phone] Suyapa Diaz PhD Unavailable [phone] Huan Nelson MD Unavailable [phone] Heavenly Holm FIRE SUPERVISOR Unavailable [phone] Meir Marin MD Unavailable [phone] Encounter Details Date Type Department Care Team (Latest Contact Info) Description 03/11/2017 Orders Only [facility] Scanning, Provider Social History Tobacco Use Types Packs/Day Years Used Date Smoking Tobacco: Never Comments Unknown Sex and Gender Information Value Date Recorded Sex Assigned at Not on file Legal Sex Female 1:22 PM BIODIESEL TECHNOLOGY MANAGER Gender Identity Not on file Sexual [...] on filedocumented in this encounter Care Teams Pie Bottomer Relationship Specialty Start Date End Date Monica Lopez MD [address] [place] [address] PCP - General 03/07/17 03/28/17 Monica Lopez MD [address] [place] [address] PCP - General 03/29/17 03/31/17 Adolfo Alfaro MD [address] [facility] [address] [place] [address] PCP - General 04/01/17 04/03/17 Monica Lopez MD [address] [place] [address] PCP - General 04/04/17 04/16/17 Adolfo Alfaro MD [address] [place] [address] PCP - General 04/17/17 04/29/17 Monica Lopez MD [address] [place] [address] PCP - General 04/30/17 Betsy Truong MD [address] [place] [address] Radiation Oncologist Radiation Oncology 09/09/17 Radha Allison MD [address] [place] [address] Surgeon Surgical Oncology 09/09/17 01/01/22 Suyapa Diaz, PhD [address] [place] [address] Nurse Practitioner Radiation Oncology 09/09/17 Huan Nelson MD [address] [place] [address] Consulting Physician Otolaryngology 10/31/20 Heavenly Holm NP [address] DIV IM MEDICAL ONCOLOGY, [address] [place] [address] Nurse Practitioner Medical Oncology 01/02/22 Meir Marin MD [address] DIV IM MEDICAL ONCOLOGY, [address] [place] [address] Surgeon Thoracic Surgery 01/01/23 documented as of this encounter
--- OUTSIDE RECORDS SUMMARY | 2024-11-03 09:53 | XMS_ITS ---
Author Organization [facility] 2 Address [address] [address] [place] [address] Care Team Providers Care Certified Medical Assistant Name Role Phone Monica Lopez MD Primary Care Provider + [phone] Betsy Truong MD Unavailable Suyapa Diaz PhD Unavailable [phone] Huan Nelson MD Unavailable [phone] Heavenly Holm MANAGER ACADEMIC Unavailable Meir Marin MD Unavailable [phone] Active Problems Patient Care Coordination No [...] 02/20/2024 Assessment & Plan (02/20/2024 12:05 PM OUTSIDE SALES ACCOUNT EXECUTIVE): Patient with elevated liver tests including elevated [...] 02/20/2024 Assessment & Plan (02/20/2024 12:07 PM OUTSIDE SALES ACCOUNT EXECUTIVE): We discussed the importance of weight loss. She will work on eating healthier and increasing exercise. She should avoid alcohol use. Unable to get GLP1 as she is not diabetic. Will check A1C to see if this has changed. 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
--- OUTSIDE RECORDS SUMMARY | 2024-11-03 09:53 | XMS_ITS | Clinical Summary ---
Author Organization [facility] 2 Address [address] [facility] [place] [address] Care Team Providers Care Asp Developer Name Role Phone Monica Lopez MD Primary Care Provider + [phone] Betsy Truong MD Unavailable Suyapa Diaz PhD Unavailable [phone] Huan Nelson MD Unavailable [phone] Heavenly Holm FIREWORKS INSPECTOR Unavailable [phone] Meir Marin MD Unavailable [phone] Allergies Active Allergy Reactions Criticality Noted Date Comments Grass Pollen Rhinitis Low 04/03/2016 Penicillins Rash Medium 03/29/2011 High school; penicillin at time of having [place] Ragweed Rhinitis,Sneezing Low 04/03/2016 Tree And Shrub [...] 02/20/2024 Assessment & Plan (02/20/2024 12:05 PM NATURAL RESOURCES MANAGER): Patient with elevated liver tests including [...] 02/20/2024 Assessment & Plan (02/20/2024 12:07 PM NATURAL RESOURCES MANAGER): We discussed the importance of weight [...] (09/14/2020): Added automatically from request for surgery [id number] Hypertrophy of inferior nasal turbinate 09/15/19 Overview (09/14/2020): Added automatically from request for surgery [id number] Encounter for monitoring tamoxifen therapy 02/18 History [...] Encounters Date Type Department Care Team Description 08/31/2024 Telephone [facility] Medicine Gastroenterology [address] [facility] [address]th [place] [address] [place] [address] Shannan Lopez NP 08/31/2024 Orders Only [facility] Scanning, Provider from Last 3 Months Immunizations Immunization Administration Dates Next Due Influenza, Quadrivalent, Split, Intramuscular ,11/13/2013 Influenza, Quadrivalent, Spl it, Preservative Free, Intramuscular 11/14/2018,11/27/2017 Influenza, Trivalent, IM (MDV) 12/17/2012,2012 Influenza, Trivalent, Preservative Free, Intramu scular 10/15/2014 Moderna SARS-CoV-2 Monovalent Vaccination (12+ Y RS) 03/12/2020,02/13/2020 Surgical History Surgery Date Site/Laterality Comments [place] NEUROPLASTY &/TRANSPOS MEDIAN NRV CARPAL TUNNE 02/12/2012 [...] on file Legal Sex Female 1:22 PM NATURAL RESOURCES MANAGER Gender Identity Not on file Sexual Orientation Not on file Obstetrics History Last Filed Vital Signs Vital Sign Reading Time Taken Comments Blood Pressure 125/80 04/17/2024 11:48 AM NATURAL RESOURCES MANAGER Pulse 76 04/17/2024 11:48 AM NATURAL RESOURCES MANAGER Temperature 36.7 C (98.1 F) 04/17/2024 11:48 AM NATURAL RESOURCES MANAGER Respiratory Rate 18 04/17/2024 11:4 8 AM NATURAL RESOURCES MANAGER Oxygen Saturation 97% 04/17/2024 11: 48 AM NATURAL RESOURCES MANAGER Inhaled Oxygen Concentration - - Weight 86.1 kg (189 lb 12.8 oz) 025 11:48 AM NATURAL RESOURCES MANAGER Height 171.5 cm (5' 7.52) 04/17/2024 1 1:48 AM NATURAL RESOURCES MANAGER Body Mass Index 29.27 04/17/2024 11:48 AM NATURAL RESOURCES MANAGER Plan of Treatment Health Maintenance Due Date Last Done Comments Cervical Cancer Screening 1960 Colon Cancer Screening-Colonoscopy 1960 Depression Screening 1960 Hepatitis C Screening 1960 DTaP/Tdap/Td Vaccine (1 - Tdap) 02/04/1971 Hepatitis B Screening 02/04/1978 Regular Well Visit/Exam 18-64 02/04/1978 Pneumococcal vaccine <65 (1 of 2 - PCV) 02/04/1979 Zoster Vaccine (1 of 2) 02/04/2010 Covid-19 Vaccine (3 - 2024-2 6 season) 2024 03/12/2020, 02/13/2020 Influenza Vaccine (#1) 2024 9, 11/27/2017, 02/06/2016, Additional history exists Breast Cancer Screening-Mammogram 04/17/2025 04/17/2024, 03/22/2023, 03/16/2022, Additional history exists Medical Devices Implanted Type Area Burr Sander Device Identifier Shelf Expiration Date Model / Serial / Lot Rt Great Toe Ortho Instrumentation Right: Toes Procedures Procedure Name Priority Date/Time Associated Diagnosis Comments SCAN - LABS 08/31/2024 SCREENING MAMMOGRAM BILATERAL W BALDO Schedule Routine, Read Routine (OP Routine) 04/17/2024 1:17 PM NATURAL RESOURCES MANAGER Intraductal carcinoma in situ of left breast Encounter for follow-up surveillance of breast cancer S/P lumpectomy, left breast from Last 3 Months or Most Recently Relevant to Health Maintenance Results * SCAN - LABS (08/31/2024) us Provider Scanning Final Result * Screening Mammogram Bilateral W Baldo (04/17/2024 1:17 PM NATURAL RESOURCES MANAGER) Anatomical Region Laterality Modality Breast Bilateral Mammography Narrative 04/17/2024 2:39 PM NATURAL RESOURCES MANAGER Mammogram Technique: Bilateral Digital Breast Tomosynthesis, Bilateral C-view 2D Screening mammogram. Views obtained: bilateral craniocaudal and bilateral mediolateral oblique. Computer Aided Detection was performed. Mammogram Findings: The present examination has been compared to prior imaging studies performed at [facility] on 03/17/2021, 03/16/2022 and 03/22/2023. There are [...] compared to prior imaging studies performed at [facility] on 03/17/2021, 03/16/2022 and 03/22/2023. There are scattered areas of fibroglandular density. There are post breast conservation therapy changes in the left breast. There is no suspicious abnormality in either breast. Impression: There is no mammographic evidence of malignancy. Annual screening mammography is recommended. OVERALL FINAL ASSESSMENT: BI-RADS CATEGORY 2: Benign. Heavenly Holm FIREWORKS INSPECTOR IMG MAMMO PROCEDURES Final Resu lt from Last 3 Months or Most Recently Relevant to Health Maintenance Insurance [facility] Care Teams Asp Developer Relationship Specialty Start Date End Date Monica Lopez MD [address] [place] [address] PCP - General 04/30/17 Betsy Truong MD [address] [place] [address] Radiation Oncologist Radiation Oncology 09/09/17 Suyapa Diaz, PhD [address] [place] [address] Nurse Practitioner Radiation Oncology 09/09/17 Huan Nelson MD [address] [place] [address] Consulting Physician Otolaryngology 10/31/20 Heavenly Holm NP [address] [facility], [facility] [address] [place] [address] Nurse Practitioner Medical Oncology 01/02/22 Meir Marin MD [address] [facility], [facility] [address] [place] [address] Surgeon Thoracic Surgery 01/01/23
[2024-11-03 10:08] LABS: Alanine Aminotransferase 34 U/L (6-35); Albumin Level 4.7 g/dL (3.5-5.1); Alkaline Phosphatase 81 U/L (38-126); Anion Gap 11 mmol/L (4-12); Aspartate Amino Transferase 35 U/L (14-36); Bilirubin,Total 1.8 mg/dL (0.2-1.3); Blood Urea Nitrogen 21 mg/dL (7-17); Calcium 9.7 mg/dL (8.4-10.2); Carbon Dioxide 27 mmol/L (22-30); Chloride 106 mmol/L (98-107); Cholesterol 229 mg/dL (0-200); Creatine Kinase 89 U/L (30-135); Estimated Glomerular Filt Rate > 60; Glucose 107 mg/dL (65-110); Iron 154 ug/dL (37-170); Osmolality Calculated 301 mOsm/kg (285-295); Potassium 4.8 mmol/L (3.4-5.0); Sodium 144 mmol/L (137-145); Total Protein 8.5 g/dL (6.3-8.2); Triglycerides 276 mg/dL (<150)
[2024-11-03 10:24] LABS: Free T4 Free Thyroxine 0.94 ng/dL (0.78-2.19)
[2024-11-03 10:38] LABS: Thyroid Stimulating Hormone 3.190 uIU/mL (0.465-4.680)
[2024-11-03 10:42] LABS: Ferritin 93.00 ng/mL (11.1-264)
[2024-11-03 10:58] LABS: HDL Direct 56 mg/dL
[2024-11-03 10:59] LABS: GGT 24.8 U/L (12-43)
== END 2024-11-03 09:18 | disposition home or self-care (01) ==
LOC: CHSLAB 09:18
PROVIDERS: PCP Internal Medicine; Visit Provider Internal Medicine
DX: R74.8 Abnormal levels of other serum enzymes (principal); I10 Essential (primary) hypertension; E78.2 Mixed hyperlipidemia; J32.4 Chronic pansinusitis; I49.3 Ventricular premature depolarization; R73.01 Impaired fasting glucose; D75.1 Secondary polycythemia
CPT/HCPCS: 36415; 80053; 80061; 81003; 82550; 82728; 82977; 83036; 83540; 84439; 84443; 85027

== ENCOUNTER 2024-12-01 11:02 | Outpatient (CLI) | payer OTHER, SELFPAY ==
[2024-12-01 11:19] LABS: Add Urine Microscopic? YES; Appearance Urine Clear (Clear); Glucose Urine UA Negative (Negative); Leukocyte Esterase Ur Trace (Negative); Nitrate Urine Negative (Negative); Specific Grav Ur 1.015 (1.010-1.020)
--- OUTSIDE RECORDS SUMMARY | 2024-12-01 13:57 | XMS_ITS | Clinical Summary ---
Author Organization [facility] 2 Address [address] [facility] [place] [address] Care Team Providers Care Donor Services Manager Name Role Phone Monica Lopez MD Primary Care Provider + [phone] Betsy Truong MD Unavailable Suyapa Diaz PhD Unavailable [phone] Huan Nelson MD Unavailable [phone] Heavenly Holm GLOBAL LEAD Unavailable [phone] Meir Marin MD Unavailable [phone] Allergies Active Allergy Reactions Criticality Noted Date Comments Grass Pollen Rhinitis Low 04/03/2016 Penicillins Rash Medium 03/29/2011 High school; penicillin at time of having [place] Ragweed Rhinitis,Sneezing Low 04/03/2016 Tree And Shrub [...] 02/20/2024 Assessment & Plan (02/20/2024 12:05 PM DIE TRIMMER): Patient with elevated liver tests including elevated [...] 02/20/2024 Assessment & Plan (02/20/2024 12:07 PM DIE TRIMMER): We discussed the importance of weight loss. She will work on eating healthier and increasing exercise. She should avoid alcohol use. Unable to get GLP1 as she is not diabetic. Will check A1C to see if this has changed. 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 12th [place] [address] [place] [address] Shannan Lopez NP 08/31/2024 Orders Only [facility] Scanning, Provider from Last 3 Months Immunizations Immunization Administration Dates Next Due Influenza, Quadrivalent, Split, Intramuscular ,11/13/2013 Influenza, Quadrivalent, Spl it, Preservative Free, Intramuscular 11/14/2018,11/27/2017 Influenza, Trivalent, IM (MDV) 12/17/2012,2012 Influenza, Trivalent, Preservative Free, Intramu scular 10/15/2014 Moderna SARS-CoV-2 Monovalent Vaccination (12+ Y RS) 03/12/2020,02/13/2020 Surgical History Surgery Date Site/Laterality Comments [place] NEUROPLASTY &/TRANSPOS MEDIAN NRV CARPAL TUNNE 02/12/2012 [...] on file Legal Sex Female 1:22 PM DIE TRIMMER Gender Identity Not on file Sexual Orientation Not on file Obstetrics History Last Filed Vital Signs Vital Sign Reading Time Taken Comments Blood Pressure 125/80 04/17/2024 11:48 AM DIE TRIMMER Pulse 76 04/17/2024 11:48 AM DIE TRIMMER Temperature 36.7 C (98.1 F) 04/17/2024 11:48 AM DIE TRIMMER Respiratory Rate 18 04/17/2024 11:4 8 AM DIE TRIMMER Oxygen Saturation 97% 04/17/2024 11: 48 AM DIE TRIMMER Inhaled Oxygen Concentration - - Weight 86.1 kg (189 lb 12.8 oz) 025 11:48 AM DIE TRIMMER Height 171.5 cm (5' 7.52) 04/17/2024 1 1:48 AM DIE TRIMMER Body Mass Index 29.27 04/17/2024 11:48 AM DIE TRIMMER Plan of Treatment Health Maintenance Due Date Last Done Comments Cervical Cancer Screening 1960 Colon Cancer Screening-Colonoscopy 1960 Depression Screening 1960 Hepatitis C Screening 1960 DTaP/Tdap/Td Vaccine (1 - Tdap) 02/04/1971 Hepatitis B Screening 02/04/1978 Regular Well Visit/Exam 18-64 02/04/1978 Zoster Vaccine (1 of 2) 02/04/2010 Covid-19 Vaccine (3 - season) 2024 03/12/2020, 02/13/2020 Influenza Vaccine (#1) 2024 9, 11/27/2017, 02/06/2016, Additional history exists Breast Cancer Screening-Mammogram 04/17/2025 04/17/2024, 03/22/2023, 03/16/2022, Additional history exists Pneumococcal vaccine <65 Aged Out No longer eligible based on patient's age to complete this topic Medical Devices Implanted Type Area Job Development Specialist Device Identifier Shelf Expiration Date Model / Serial / Lot Rt Great Toe Ortho Instrumentation Right: Toes Procedures Procedure Name Priority Date/Time Associated Diagnosis Comments SCAN - LABS 08/31/2024 SCREENING MAMMOGRAM BILATERAL W SATHISH Schedule Routine, Read Routine (OP Routine) 04/17/2024 1:17 PM DIE TRIMMER Intraductal carcinoma in situ of left breast Encounter for follow-up surveillance of breast cancer S/P lumpectomy, left breast from Last 3 Months or Most Recently Relevant to Health Maintenance Results * SCAN - LABS (08/31/2024) us Provider Scanning Final Result * Screening Mammogram Bilateral W Sathish (04/17/2024 1:17 PM DIE TRIMMER) Anatomical Region Laterality Modality Breast Bilateral Mammography Narrative 04/17/2024 2:39 PM DIE TRIMMER Mammogram Technique: Bilateral Digital Breast Tomosynthesis, Bilateral C-view 2D Screening mammogram. Views obtained: bilateral craniocaudal and bilateral mediolateral oblique. Computer Aided Detection was performed. Mammogram Findings: The present examination has been compared to prior imaging studies performed at [facility] on 03/17/2021, 03/16/2022 and 03/22/2023. There are [...] compared to prior imaging studies performed at [facility] on 03/17/2021, 03/16/2022 and 03/22/2023. There are scattered areas of fibroglandular density. There are post breast conservation therapy changes in the left breast. There is no suspicious abnormality in either breast. Impression: There is no mammographic evidence of malignancy. Annual screening mammography is recommended. OVERALL FINAL ASSESSMENT: BI-RADS CATEGORY 2: Benign. Heavenly Holm GLOBAL LEAD IMG MAMMO PROCEDURES Final Resu lt from Last 3 Months or Most Recently Relevant to Health Maintenance Insurance [facility] Care Teams Donor Services Manager Relationship Specialty Start Date End Date Monica Lopez MD [address] [place] [address] PCP - General 04/30/17 Betsy Truong MD [address] [place] [address] Radiation Oncologist Radiation Oncology 09/09/17 Suyapa Diaz, PhD [address] [place] [address] Nurse Practitioner Radiation Oncology 09/09/17 Huan Nelson MD [address] [place] [address] Consulting Physician Otolaryngology 10/31/20 Heavenly Holm NP [address] [facility], [facility] [address] [place] [address] Nurse Practitioner Medical Oncology 01/02/22 Meir Marin MD [address] [facility], [facility] [address] [place] [address] Surgeon Thoracic Surgery 01/01/23
--- OUTSIDE RECORDS SUMMARY | 2024-12-01 13:57 | XMS_ITS ---
Author Organization [facility] 2 Address [address] [facility] [place] [address] Care Team Providers Care Fire Captain Name Role Phone Monica Lopez MD Primary Care Provider + [phone] Betsy Truong MD Unavailable Suyapa Diaz PhD Unavailable [phone] Huan Nelson MD Unavailable [phone] Heavenly Holm MATE CHIEF Unavailable [phone] Meir Marin MD Unavailable [phone] Active Problems Patient Care Coordination No [...] 02/20/2024 Assessment & Plan (02/20/2024 12:05 PM BOWLING BALL PATCHER): Patient with elevated liver tests including elevated [...] 02/20/2024 Assessment & Plan (02/20/2024 12:07 PM BOWLING BALL PATCHER): We discussed the importance of weight loss. She will work on eating healthier and increasing exercise. She should avoid alcohol use. Unable to get GLP1 as she is not diabetic. Will check A1C to see if this has changed. S/P arthroscopic partial medial meniscectomy Acute meniscal tear of right knee 07/11/2022 Deviated nasal septum 09/14/2020 Overview (09/14/2020): Added automatically from request for surgery [id number] Hypertrophy of inferior nasal turbinate 09/15/19 Overview (09/14/2020): Added automatically from request for surgery [id number] Encounter for monitoring tamoxifen therapy 02/18 History [...]
--- OUTSIDE RECORDS SUMMARY | 2024-12-01 13:57 | XMS_ITS | Encounter Summary ---
Author Organization [facility] Address [facility] [place] [address] Care Team Providers Care Cyber Operator Name Role Phone Monica Lopez MD Primary Care Provider Zak Bolanos MD Unavailable Encounter Details Date Type Department Care Team (Late st Contact Info) Description 02/13/2017 Abstract [facility] [address] [place] [address] Zak Bolanos MD [address] [place] [address] Social History Tobacco Use Types Packs/Day Years Used Date Smoking Tobacco: Never Comments Unknown Sex and Gender Information Value Date Recorded Sex Assigned at Not on file Legal Sex Female 10:54 PM QUARRY MANAGER Gender Identity Not on file Sexual Orientation Not on file 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
--- OUTSIDE RECORDS SUMMARY | 2024-12-01 13:57 | XMS_ITS | Clinical Summary ---
Author Organization [facility] Address [address] [place] [address] Care Team Providers Care Hosiery Knitter Name Role Phone Unavailable Primary Care Provider Unavailabl e Source Comments [facility],non-owned Affiliates and Associated Physician Practices is amultiple site organization consisting of ambulatory clinics and hospital sitesin [place], [place], [place] and [place]. This disclosure is being madepursuant to the Care Everywhere program and may not contain all information available regarding this patient. Last updated 17.[facility] Allergies Active Allergy Reactions Criticality Noted Date [...] once daily. Active vitamin D, ergocalciferol, (DRISDOL) 59435 UNIT capsule Take 50,000 units twice weekly [...] on file Legal Sex Female 1:07 PM DAIRY LAB TECHNICIAN Gender Identity Not on file Sexual Orientation Not on file Last Filed Vital Signs Vital Sign Reading Time Taken Comments Blood Pressure 114/78 04/19/2011 10:35 AM DAIRY LAB TECHNICIAN Pulse - - Temperature 37.1 C (98.7 F) 04/19/2011 10:35 AM DAIRY LAB TECHNICIAN Respiratory Rate - - Oxygen Saturation [...] 02/04/2010 ZOSTER VACCINE (1 of 2) 02/04/2010 DEPRESSION SCREENING 02/12/2024 COVID-19 VACCINE (1 - 2023-2 5 season) 2024 INFLUENZA VACCINE (#1) 2024 Respiratory Syncytial Virus [...] patient's age to complete this topic Insurance [facility]
--- OUTSIDE RECORDS SUMMARY | 2024-12-01 13:57 | XMS_ITS | Encounter Summary ---
Author Organization [facility] Address [facility] [facility] [place] [address] Care Team Providers Care Lumber Stacker Driver Name Role Phone Unavailable Primary Care Provider Unavailabl e Encounter Details Date Type Department Care Team (Late st Contact Info) Description 09/09/2019 Lab Requisition [facility] DermPath Lab [address] [facility] [place] [address] [place] [address] [facility] [address] [place] [address] Social History Tobacco Use Types Packs/Day Years Used Date Smoking Tobacco: Never Alcohol Use Standard Drinks/Week Comments Yes 0 (1 standard drink = 0.6 oz pur e alcohol) social ETOH few times monthly Comments Unknown Sex and Gender Information Value Date Recorded Sex Assigned at Not on file Legal Sex Female 1:07 PM NOZZLE TENDER Gender Identity Not on file Sexual Orientation Not on file documented as of this encounter Plan of Treatment Not on file documented as of this encounter Procedures Procedure Name Priority Date/Time Associated Diagnosis Comments DERMATOPATHOLOGY Routine 09/08/2019 12:0 0 AM CDT documented in this encounter Results * DERMATOPATHOLOGY (09/08/2019 12:00 AM CDT) Case Report Dermatopathology Report Case: [id number] Authorizing Provider: Daniel Cleaning MD Collected: 09/08/2019 12:00 AM Ordering Location: [facility] Derm[facility] Lab Received: 09/09/2019 09:59 AM [...] of a non-oriented ellipse of skin measuring [id number]. The epidermal surface is unremarkable. The margin [...] characteristic determined by the Dermatopathology Laboratory at [facility], directed by Dr. Prosper Blevins. These tests need not be, and therefore are not, approved by the [place] Food and Drug Administration. The tests are used for clinical purposes. Billing Codes Specimen Charges Stain Charges 88447 1 0 5:14 PM CDT DERMATOPATHOLOGY LABORATORY Embedded Images 0 5:14 PM CDT DERMATOPATHOLOGY LABORATORY Pathology/Cytolog y TISSUE SPECIMEN FROM SKIN / Unknown 09/08/2019 09/09/2019 9:59 AM CDT Daniel Cleaning MD LAB - PATHOLOGY/CYTOLOGY ORDE GWEN Final Result DERMATOPATHOLOGY LABORATORY [facility] - Department of Dermatology [facility]/[address] [phone] documented in this encounter Visit Diagnoses Not on filedocumented in this encounter
--- OUTSIDE RECORDS SUMMARY | 2024-12-01 13:57 | XMS_ITS | Encounter Summary ---
Author Organization [facility] Address [address] [place] [address] Care Team Providers Care Associate Professor Computer Science Name Role Phone Unavailable Primary Care Provider Unavailabl e Encounter Details Date Type Department Care Team (Late st Contact Info) Description 11/17/2014 Therapy Visit [facility] [address] [place] [address] Xiomara Samano MD [address] [place] [address] Social History Tobacco Use Types Packs/Day Years Used Date Smoking Tobacco: Never Alcohol Use Standard Drinks/Week Comments Yes 0 (1 standard drink = 0.6 oz pur e alcohol) social ETOH few times monthly Comments Unknown Sex and Gender Information Value Date Recorded Sex Assigned at Not on file Legal Sex Female 1:07 PM GAS LEAK INSPECTOR Gender Identity Not on file Sexual Orientation Not on file documented as of this encounter Plan of Treatment Not on file documented as of this encounter Visit Diagnoses Not on filedocumented in this encounter
--- OUTSIDE RECORDS SUMMARY | 2024-12-01 13:57 | XMS_ITS | Clinical Summary ---
Author Organization [facility] Address [place] [address] Care Team Providers Care Sole Inker Name Role Phone Monica Lopez MD Primary Care Provider [phone] Zak Bolanos MD Unavailable [phone] Allergies Active Allergy Reactions Criticality Noted Date Comments Penicillins Unknown 02/15/2017 Medications rosuvastatin 10 MG tablet Take 10 mg by mouth daily. Active meloxicam 15 MG tablet Take 15 mg by mouth daily. Active ipratropium 0.06 % nasal spray 2 sprays by Nasal route 3 (three) times daily. Active vitamin D2, ergocalciferol, 00910 UNITS capsule 01/28/2017 Active magnesium oxide 400 [...] on file Legal Sex Female 10:54 PM DONOR RELATIONS COORDINATOR Gender Identity Not on file Sexual Orientation [...] 02/04/1990 Mammogram Screening 2000 Pneumococcal Vaccine: 50+ Years (1 of 1 - PCV) 02/04/2010 Zoster Vaccines (1 of 2) 02/04/2010 COVID-19 Vaccine (1 - 2024- season) 2024 Influenza Adult (#1) 2024 11/27/2017, 02/06/2016, 10/15/2014, Additional history exists RSV Immunization or 60+ Years (1 - 1-dose 75+ series) 02/04/2035 Hepatitis A Vaccines Aged Out No long er eligible based on patient's age to complete this topic Meningococcal B Vaccine Aged Out No l onger eligible based on patient's age to complete this topic Meningococcal Vaccine Aged Out No rayo jerrod eligible based on patient's age to complete this topic RSV Immunizations Under 20 Months Aged Out No longer eligible based on patient's age to complete this topic Insurance [facility] Care Teams Sole Inker Relationship Specialty Start Date End Date Monica Lopez MD [address] [place] [id number] PCP - General INTERNAL MEDICINE 02/27/17 Zak Bolanos MD [address] [place] [address] Earp Machine Tack Puller CARDIOVASCULAR DISEASE 02/27/17
--- OUTSIDE RECORDS SUMMARY | 2024-12-01 13:58 | XMS_ITS | Encounter Summary ---
Author Organization [facility] Address [address] [place] [address] Phone Care Team Providers Care Tourist Information Assistant Name Role Phone Monica Lopez MD Primary Care Provider + [phone] Monica Lopez MD Primary Care Provider + [phone] Adolfo Alfaro MD Primary Care Provider Monica Lopez MD Primary Care Provider + [phone] Adolfo Alfaro MD Primary Care Provider Monica Lopez MD Primary Care Provider + [phone] Betsy Truong MD Unavailable Radha Allison MD Unavailable +[phone] Suyapa Diaz PhD Unavailable [phone] Huan Nelson MD Unavailable [phone] Heavenly Holm [employer]EDER Unavailable [phone] Meir Marin MD Unavailable [phone] Encounter Details Date Type Department Care Team (Latest Contact Info) Description 03/11/2017 Orders Only [facility] Scanning, Provider Social History Tobacco Use Types Packs/Day Years Used Date Smoking Tobacco: Never Comments Unknown Sex and Gender Information Value Date Recorded Sex Assigned at Not on file Legal Sex Female 1:22 PM [employer] Gender Identity Not on file Sexual Orientation [...] on filedocumented in this encounter Care Teams Tourist Information Assistant Relationship Specialty Start Date End Date Monica Lopez MD [address] [place] [address] PCP - General 03/07/17 03/28/17 Monica Lopez MD [address] [place] [address] PCP - General 03/29/17 03/31/17 Adolfo Alfaro MD [address] [facility] [address] [place] [address] PCP - General 04/01/17 04/03/17 Monica Lopez MD [address] [place] [address] PCP - General 04/04/17 04/16/17 Adolfo Alfaro MD [address] [facility] [address] [place] [address] PCP - General 04/17/17 04/29/17 Monica Lopez MD [address] [place] [address] PCP - General 04/30/17 Betsy Truong MD [address] [place] [address] Radiation Oncologist Radiation Oncology 09/09/17 Radha Allison MD [address] [place] [address] Surgeon Surgical Oncology 09/09/17 01/01/22 Suyapa Diaz, PhD [address] [place] [address] Nurse Practitioner Radiation Oncology 09/09/17 Huan Nelson MD [address] [place] [address] Consulting Physician Otolaryngology 10/31/20 Heavenly Holm NP [address] DIV IM MEDICAL ONCOLOGY, [address] [place] [address] Nurse Practitioner Medical Oncology 01/02/22 Meir Marin MD [address] DIV IM MEDICAL ONCOLOGY, [address] [place] [address] Surgeon Thoracic Surgery 01/01/23 documented as of this encounter
== END 2024-12-01 11:03 | disposition home or self-care (01) ==
PROVIDERS: PCP Internal Medicine; Visit Provider Internal Medicine
DX: R30.0 Dysuria (principal); R68.2 Dry mouth, unspecified
CPT/HCPCS: 81001; 86235; 87086; 87186